=== PATIENT | female | born 1935 | race Caucasian/White ===

== ENCOUNTER 2017-06-10 14:23 | Inpatient (IN) | payer OTHER, BC ==
[2017-06-10 14:42] VITALS: BMI 19.5
--- NOTE | 2017-06-10 15:33 | PDOC ---
Attending Attestation - HPI HPI: The patient is an 81 year old female with significant history of hypertension, COPD, dementia, brought in by EMS after being found on the floor of her home today. Per EMS, the patient's nephew was unable to reach the patient by phone for two days. Today, he checked in on her and found her on the floor of her home. Patient reportedly stating she was "sleeping" and does not recall any fall or injury. Nephew activated EMS. On evaluation, the patient complains of several days of malaise, generalized weakness, productive cough, and white sputum. PCP: Dr. Hammond Documentation prepared by Liss Mendoza, acting as medical reception for Leah Cortez MD. <Liss Mendoza - Last Filed: 06/10/17 16:34> - Resident Resident Name: Lauren Ball - ED Attending Attestation I have performed the following: I have examined & evaluated the patient, The case was reviewed & discussed with the resident, I agree w/resident's findings & plan, Exceptions are as noted - Physicial Exam PE: GENERAL: Awake, alert, in no acute distress. Minimally verbal. Not offering any history. HEAD: No signs of trauma EYES: PERRLA, EOMI, sclera anicteric, conjunctiva clear ENT: Auricles normal inspection, hearing grossly normal, nares patent, oropharynx clear without exudates. Dry mucosa NECK: Normal ROM, supple, no lymphadenopathy, JVD, or masses LUNGS: Breath sounds equal, clear to auscultation bilaterally. No wheezes, and no crackles HEART: Regular rate and rhythm, normal S1 and S2, no murmurs, rubs or gallops ABDOMEN: Soft, nontender, normoactive bowel sounds. No guarding, no rebound. No masses EXTREMITIES: Normal range of motion, no edema. No clubbing or cyanosis. No cords, erythema, or tenderness NEUROLOGICAL: Cranial nerves II through XII grossly intact. Motor and sensation intact. SKIN: Warm, Dry, normal turgor, no rashes or lesions noted. - Medical Decision Making Pt presents after family could not contact her for 2 days, found on the floor. AMS workup was done, and patient was found to have acute renal failure with elevated K. Will treat in ED and admit to hospital for further workup and treatment. <Leah Cortez - Last Filed: 06/12/17 10:44>
--- NOTE | 2017-06-10 15:44 | PDOC ---
History of Present Illness - General Chief Complaint: Altered Mental Status Stated Complaint: AMS Time Seen by Provider: 06/10/17 14:30 History Source: Patient, Family Exam Limitations: Dementia - History of Present Illness Initial Comments: 06/10/17 15:37 81 y/o F with PMH dementia, HTN, COPD, lung nodule, who was BIBEMS after being found at home on the ground this afternoon. As per pt's nephew, he has recently had trouble contacting her over the phone. After approximately two days of missed calls, pt decided to stop by her apartment to find her lying on the floor. She stated that she was "just sleeping," though she was on a rug in the living room, away from her bedroom. It is unclear whether she had a syncopal episode, or had a mechanical fall- was unwitnessed. For this reason, nephew called EMS and she was brought to the hospital. Her vitals were WNL en route, BP 130/80, HR 90. Pt has had decreased PO intake over the last week, as well as generalized pain in her lumbar back. Recently, pt has also "felt unwell," with productive cough, dysuria, and weakness. Nephew and EMS state that her apartment has been very warm. At baseline, pt ambulates with a cane and lives alone in an apartment. Her PMD is Dr. Hammond. PMH: as above PsxH: denies meds: amlodipine, lisinopril allergies: penicillin, pollen FH: mother - Past History - Past Medical History Allergies/Adverse Reactions: Allergies Allergy/AdvReac Type Severity Reaction Status Date / Time Penicillins Allergy Rash Verified 06/10/17 16:48 Pollen Allergy Mild Uncoded 06/10/17 16:48 Home Medications: Ambulatory Orders Glucosa Garcia 2Kcl/Chondroitin Garica [Glucosamine & Chondroitin Cap] 1 each PO DAILY 09/13/13 Potassium Gluconate 500 mg PO DAILY 09/13/13 Ranitidine HCl [Zantac] 150 mg PO BID 09/13/13 Red Yeast Rice 600 mg PO BID 09/13/13 Vitamin E - 400 unit PO DAILY 09/13/13 Pantoprazole Sodium [Protonix] 40 mg PO BID #60 tablet. 09/17/13 Cholecalciferol (Vitamin D3) [Vitamin D3] 1,000 unit PO DAILY tablet 09/06/14 Cranberry Fruit [Cranberry] 450 mg PO BID tablet 09/06/14 Vitamin A 8,000 unit PO DAILY capsule 09/06/14 Anemia: No Asthma: No Cancer: No Cardiac Disorders: No CVA: No COPD: No CHF: No Dementia: No Diabetes: No GI Disorders: No Disorders: No HTN: Yes Hypercholesterolemia: No Liver Disease: No Seizures: No Thyroid Disease: No - Surgical History Abdominal Surgery: No Appendectomy: Yes Cardiac Surgery: No Cholecystectomy: No Lung Surgery: No Neurologic Surgery: No Orthopedic Surgery: No - Suicide/Smoking/Psychosocial Hx Smoking History: Current every day smoker Have you smoked in the past 12 months: Yes Number of Cigarettes Smoked Daily: 20 Information on smoking cessation initiated: No Hx Alcohol Use: No Drug/Substance Use Hx: No Substance Use Type: None Hx Substance Use Treatment: No *Physical Exam - Vital Signs Last Vital Signs Temp Pulse Resp BP Pulse Ox 97.6 F 84 20 118/59 98 06/10/17 14:38 06/10/17 14:38 06/10/17 14:38 06/10/17 14:38 06/10/17 14:38 - Physical Exam General Appearance: Yes: Thin HEENT: positive: EOMI, TEJAS Neck: positive: Supple Respiratory/Chest: positive: Wheezing Cardiovascular: positive: Regular Rhythm, Regular Rate, S1, S2 Vascular Pulses: Dorsalis-Pedis (R): 2+, Doralis-Pedis (L): 2+ Gastrointestinal/Abdominal: positive: Tenderness (TTP suprapubic area) Rectal Exam: positive: heme negative stool Neurologic: positive: second mate II-XII NML intact ED Treatment Course - LABORATORY CBC & Chemistry Diagram: 06/10/17 15:32 06/10/17 15:32 - RADIOLOGY Radiology Studies Ordered: Category Date Time Status CERVICAL SPINE CT W/O CONTR [CT] Stat CT Scan 06/10/17 15:[address] WITHOUT CONTRAST [CT] Stat CT Scan 06/10/17 15:[address] W/O CONTRAST [CT] Stat CT Scan 06/10/17 15:34 Ordered CXRPORT [CHEST X-RAY PORTABLE*] [RAD] Stat Radiology 06/10/17 15:29 Ordered Medical Decision Making - Medical Decision Making 06/10/17 17:03 81 y/o F with PMH dementia, HTN, COPD, lung nodule, who was BIBEMS after being found at home on the ground this afternoon. Pt likely with dehydration d/t decreased PO intake, will hydrate, send labs - cbc, cmp. CK to r/o rhabdo. Will scan head to r/o bleed as pt fall unwitnessed, f/u troponin, ekg. Pt with possible UTI, syncopal episode, or PNA. 06/10/17 17:04 Pt with elevated potassium 5.9 will give nebs/insulin/D50, kayexelate and reassess will hydrate with 1L NS as bump in creatinine ~4.9 EKG: normal sinus, R dev, NE 140ms, QRS 76ms, QTc 434ms, with poss old ant infarct 06/10/17 17:10 Awaiting reports for imaging 06/10/17 20:17 With chronic changes - spinal CT. Head CT (-) will need f/u for CHAVA, AMS pt still lethargic microblog sent 06/10/17 21:15 case d/w Dr. Hernandez, Dr. Maldonado for tele obs 06/10/17 21:16 *DC/Admit/Observation/Transfer Diagnosis at time of Disposition: Altered mental status, Acute kidney injury - Discharge Dispostion Condition at time of disposition: Guarded Admit: Yes - Referrals Referrals: Khang Hammond MD [Primary Care Provider] - - Patient Instructions - Post Discharge Activity
[2017-06-10 16:10] LABS: BASO % 0.2 % (0-2.0); EOS % 0.1 % (0-4.5); HEMOGLOBIN 14.1 GM/dL (10.7-15.3); LYMPH % 12.7 % (8-40); MCH 32.2 pg (25.7-33.7); MCHC 33.6 g/dl (32.0-36.0); MEAN PLT VOLUME 9.1 fl (7.5-11.1); PLATELET COUNT 162 K/MM3 (134-434); RBC 4.38 M/mm3 (3.60-5.2); RDW 15.1 % (11.6-15.6); WHITE BLOOD COUNT 8.3 K/mm3 (4.0-10.0)
[2017-06-10 16:11] LABS: URINE APPEARANCE SLCLOUDY; URINE BILIRUBIN NEGATIVE (NEGATIVE); URINE BLOOD NEGATIVE (NEGATIVE); URINE COLOR YELLOW; URINE GLUCOSE (UA) NEGATIVE (NEGATIVE); URINE KETONE TRACE (NEGATIVE); URINE NITRITE NEGATIVE (NEGATIVE); URINE PROTEIN NEGATIVE (NEGATIVE); URINE UROBILINOGEN NEGATIVE mg/dL (0.2-1.0)
[2017-06-10 16:18] LABS: URINE LEUK ESTERASE 1+ (NEGATIVE)
[2017-06-10 16:23] LABS: EPI CELLS RARE /HPF (FEW); URINE BACTERIA RARE /hpf (NONE SEEN); URINE HYALINE CAST 9 /lpf; URINE MUCUS RARE
[2017-06-10 16:33] LABS: ALK PHOS 71 U/L (45-117); ANION GAP 12 (8-16); BILIRUBIN,TOTAL 0.4 mg/dL (0.2-1.0); CHLORIDE 120 mmol/L (98-107); CO2 15 mmol/L (21-32); CREATININE 4.9 mg/dL (0.55-1.02); GLUCOSE,RANDOM 114 mg/dL (74-106); POTASSIUM 5.9 mmol/L (3.5-5.1); SGOT/AST 8 U/L (15-37); SGPT/ALT 10 U/L (12-78); SODIUM 147 mmol/L (136-145); TOT PROT 7.4 g/dl (6.4-8.2)
[2017-06-10 16:39] LABS: BLOOD UREA NITROGEN 146 mg/dL (7-18)
[2017-06-10] MEDS ORDERED: SODIUM CHLORIDE 1,000 ML IV STA ×2 (16:43→21:15)
[2017-06-10] MEDS ORDERED: INSULIN REGULAR HUMAN 100 UNITS/ML *VIAL SQ ONE (16:43)
[2017-06-10] MEDS ORDERED: SODIUM BICARBONATE 8.4% 50 MEQ/50 ML DISP.SYRIN IVPUSH ONE (16:43)
[2017-06-10] MEDS ORDERED: SODIUM POLYSTYRENE SULFONATE 15 GM/60 ML BOTTLE PO ONE (16:45)
[2017-06-10] MEDS ORDERED: ALBUTEROL SO4 0.083% IH SOL 2.5 MG/3 ML VIAL.NEB. NEB ONE (16:45)
[2017-06-10] MEDS ORDERED: DEXTROSE 50%-WATER - 25 GM/50 ML VIAL IVPUSH ONE (16:49)
[2017-06-10] MEDS ORDERED: SODIUM BICARBONATE 8.4% - 50 ML ONE (17:04)
[2017-06-10] MEDS ORDERED: SODIUM POLYSTYRENE SULFONATE 15 GM/60 ML BOTTLE ONE (17:04)
[2017-06-10] MEDS ORDERED: DEXTROSE 50%-WATER 25 GM/50 ML DISP.SYRIN ONE (17:04)
[2017-06-10] MEDS ORDERED: INSULIN REGULAR HUMAN 100 UNITS/ML *VIAL ONE (17:05)
[2017-06-10] MEDS ORDERED: SODIUM CHLORIDE 1,000 ML IV SCH (21:15)
[2017-06-10] MEDS ORDERED: ALBUTEROL SO4 2.5/IPRATROPIUM 0.5 INH SOL 3 ML VIAL.NEB. NEB PRN (21:19)
--- NOTE | 2017-06-10 21:26 | HP ---
CHIEF COMPLAINT: found on floor PCP:Dr. Hammond HISTORY OF PRESENT ILLNESS: 81 y/o F with PMHx HTN, dementia, COPD, lung nodule, who presented to ED after being found at home on the floor. She was last seen well by her nephew two days prior. He was unable to contact her despite continuous phone calls. After approximately two days of missed calls, pt decided to stop by her apartment to find her lying on the floor. She stated that she was "just sleeping," though she was on a rug in the living room, away from her bedroom. It is unclear whether she had a syncopal episode, or had a mechanical fall- was unwitnessed. For this reason, nephew called EMS and she was brought to the hospital. Her vitals were WNL en route, BP 130/80, HR 90. Pt endorses decreased PO intake over the last week, as well as generalized pain in her lumbar back, which is chronic. Recently, pt has also "felt unwell," with productive cough, dysuria, and weakness. Denies CP,LANZA, SOB, abdominal pain, N/V. ER course was notable for: (1)CT head/neck was negative for acute pathology. (2)BUN 146 Cr. 4.9 (3)K+4.9 , Na 147 Recent Travel: denies PAST MEDICAL HISTORY:dementia, HTN, COPD, lung nodule, PUD PAST SURGICAL HISTORY: Social History: Smoking:current PPD smoker. Alcohol: Denies Drugs: Denies Family History: Allergies Penicillins Allergy (Verified 06/10/17 16:48) Rash Pollen Allergy (Mild, Uncoded 06/10/17 16:48) HOME MEDICATIONS: Home Medications Medication Instructions Recorded Glucosa Garcia 2Kcl/Chondroitin Garcia 1 each PO DAILY 09/13/13 [Glucosamine & Chondroitin Cap] Potassium Gluconate 500 mg PO DAILY 09/13/13 Ranitidine HCl [Zantac] 150 mg PO BID 09/13/13 Red Yeast Rice 600 mg PO BID 09/13/13 Vitamin E - 400 unit PO DAILY 09/13/13 Pantoprazole Sodium [Protonix] 40 mg PO BID #60 tablet. 09/17/13 Cholecalciferol (Vitamin D3) 1,000 unit PO DAILY tablet 09/06/14 [Vitamin D3] Cranberry Fruit [Cranberry] 450 mg PO BID tablet 09/06/14 Vitamin A 8,000 unit PO DAILY capsule 09/06/14 REVIEW OF SYSTEMS CONSTITUTIONAL: Absent: fever, chills, diaphoresis, generalized weakness, malaise, loss of appetite, weight change HEENT: Absent: rhinorrhea, nasal congestion, throat pain, throat swelling, difficulty swallowing, mouth swelling, ear pain, eye pain, visual changes CARDIOVASCULAR: Absent: chest pain, syncope, palpitations, irregular heart rate, lightheadedness , peripheral edema RESPIRATORY: Absent: cough, shortness of breath, dyspnea with exertion, orthopnea, wheezing, stridor, hemoptysis GASTROINTESTINAL: Absent: abdominal pain, abdominal distension, nausea, vomiting, diarrhea, constipation, melena, hematochezia GENITOURINARY: Absent: dysuria, frequency, urgency, hesitancy, hematuria, flank pain, genital pain MUSCULOSKELETAL: Absent: myalgia, arthralgia, joint swelling, back pain, neck pain SKIN: Absent: rash, itching, pallor HEMATOLOGIC/IMMUNOLOGIC: Absent: easy bleeding, easy bruising, lymphadenopathy, frequent infections ENDOCRINE: Absent: unexplained weight gain, unexplained weight loss, heat intolerance, cold intolerance NEUROLOGIC: Absent: headache, focal weakness or paresthesias, dizziness, unsteady gait, seizure, mental status changes, bladder or bowel incontinence PSYCHIATRIC: Absent: anxiety, depression, suicidal or homicidal ideation, hallucinations. PHYSICAL EXAMINATION Vital Signs - 24 hr 06/10/17 06/10/17 14:38 17:24 Temperature 97.6 F 98.0 F Pulse Rate 84 Pulse Rate [ 84 Left Apical] Respiratory 20 16 Rate Blood Pressure 118/59 Blood Pressure 144/71 [Left Arm] O2 Sat by Pulse 98 98 Oximetry (%) GENERAL:awake and alert. pleasantly confused, NAD HEAD: NC/AT EYES: PERRLA, EOMI, sclera anicteric, conjunctiva clear. No lid lag. EARS, NOSE, THROAT: Ears normal, nares patent, oropharynx clear without exudates. dry mucous membranes. Poor dentition NECK: supple, no jvd or mass LUNGS: decreased breath sounds but otherwise clear to auscultation, no wheezing or rales. HEART: RRR, NL S1S2 w/omurmur, rub or gallop. ABDOMEN: Soft, NT/ND, NL BS, no guarding, no rebound, no masses. No hepatomegaly or splenomegaly. MUSCULOSKELETAL: Normal range of motion at all joints. No bony deformities or tenderness. No CVA tenderness. UPPER EXTREMITIES: 2+ pulses, warm, well-perfused. No cyanosis. No clubbing. No peripheral edema. LOWER EXTREMITIES: 2+ pulses, warm, well-perfused. No calf tenderness. No peripheral edema. NEUROLOGICAL: Cranial nerves II-XII intact. Normal speech.gait not observed. AAO x2, 5/5 strength in upper and lower ext. PSYCHIATRIC: Cooperative. Good eye contact. Appropriate mood and affect. SKIN: no obvious signs of trauma, no significant lacerations or bruising. Laboratory Results - last 24 hr 06/10/17 06/10/17 06/10/17 15:32 15:32 15:32 WBC 8.3 RBC 4.38 Hgb 14.1 Hct 42.0 MCV 96.0 MCH 32.2 MCHC 33.6 RDW 15.1 Plt Count 162 D MPV 9.1 D Neutrophils % 79.0 D Lymphocytes % 12.7 D Monocytes % 8.0 Eosinophils % 0.1 D Basophils % 0.2 Sodium 147 H Potassium 5.9 H Chloride 120 H Carbon Dioxide 15 L Anion Gap 12 BUN 146 H* Creatinine 4.9 H Creat Clearance w eGFR 8.48 POC Glucometer Random Glucose 114 H Calcium 9.0 Total Bilirubin 0.4 AST 8 L ALT 10 L Alkaline Phosphatase 71 Creatine Kinase 78 Troponin I Total Protein 7.4 Albumin 4.0 Urine Color Urine Appearance Urine pH Ur Specific Giddings Urine Protein Urine Glucose (UA) Urine Ketones Urine Blood Urine Nitrite Urine Bilirubin Urine Urobilinogen Ur Leukocyte Esterase Urine WBC (Auto) Urine RBC (Auto) Ur Epithelial Cells Urine Bacteria Hyaline Casts Urine Mucus Ur Random Sodium Urine Creatinine 06/10/17 06/10/17 06/10/17 15:37 15:37 17:17 WBC RBC Hgb Hct MCV MCH MCHC RDW Plt Count MPV Neutrophils % Lymphocytes % Monocytes % Eosinophils % Basophils % Sodium Potassium Chloride Carbon Dioxide Anion Gap BUN Creatinine Creat Clearance w eGFR POC Glucometer [phone] Random Glucose Calcium Total Bilirubin AST ALT Alkaline Phosphatase Creatine Kinase 78 Troponin I 0.04 Total Protein Albumin Urine Color Yellow Urine Appearance Slcloudy Urine pH 5.0 Ur Specific [place] 1.017 Urine Protein Negative Urine Glucose (UA) Negative Urine Ketones Trace H Urine Blood Negative Urine Nitrite Negative Urine Bilirubin Negative Urine Urobilinogen Negative Ur Leukocyte Esterase 1+ H Urine WBC (Auto) 3 Urine RBC (Auto) <1 Ur Epithelial Cells Rare Urine Bacteria Rare Hyaline Casts 9 Urine Mucus Rare Ur Random Sodium Urine Creatinine 06/10/17 18:40 WBC RBC Hgb Hct MCV MCH MCHC RDW Plt Count MPV Neutrophils % Lymphocytes % Monocytes % Eosinophils % Basophils % Sodium Potassium Chloride Carbon Dioxide Anion Gap BUN Creatinine Creat Clearance w eGFR POC Glucometer Random Glucose Calcium Total Bilirubin AST ALT Alkaline Phosphatase Creatine Kinase Troponin I Total Protein Albumin Urine Color Urine Appearance Urine pH Ur Specific [place] Urine Protein 72 Urine Glucose (UA) Urine Ketones Urine Blood Urine Nitrite Urine Bilirubin Urine Urobilinogen Ur Leukocyte Esterase Urine WBC (Auto) Urine RBC (Auto) Ur Epithelial Cells Urine Bacteria Hyaline Casts Urine Mucus Ur Random Sodium 22 Urine Creatinine 273.0 ASSESSMENT/PLAN: 81 y/o F with PMH dementia, HTN, COPD, lung nodule placed on observation for CHAVA , hyperkalemia and hypernatremia after being found at home on the floor. Problem List - Problem (1) Acute kidney injury Assessment/Plan: Most likely pre-renal from decreased PO intake. * Given 2L NS in ED * Will continue IVF with 1/2NS @ 50ml/hr * strict I/O's * repeat labs in AM (2) Hyperkalemia Assessment/Plan: * Placed on Telemetry. * Repeat EKG * Given albuterol, Kayexelate, Insulin and glucose in ED * Will repeat BMP in AM * placed on telemetry. (3) Hypernatremia Assessment/Plan: free water def. 1L * continue IVF * repeat sodium in AM (4) Altered mental status Assessment/Plan: CT imaging of head and neck negative for acute pathology. * Neuro checks Q4H * WIll check B12, TSH, and (5) HTN (hypertension) Assessment/Plan: BP on the low side upon presentation. * Will hold BP meds for now * hold lisinopril for CHAVA. (6) COPD (chronic obstructive pulmonary disease) Assessment/Plan: * Duonebs PRN (7) Dementia (8) DVT prophylaxis Assessment/Plan: * Heparin SQ TID 5000 units Visit type - Emergency Visit Emergency Visit: Yes ED Registration Date: 06/11/17 Care time: The patient presented to the Emergency Department on the above date and was hospitalized for further evaluation of their emergent condition. - New Patient This patient is new to me today: Yes Date on this admission: 06/13/17 - Critical Care Critical Care patient: No Hospitalist Screening - Colonoscopy Questionnaire Colonoscopy Questionnaire: Colonoscopy Questionnaire - Patient: 50 - 75 years old and never had a screening colonoscopy: No History of colon or rectal polyps, or CA: No History of IBD, Crohn's disease or UC: No History of abdominal radiation therapy as a child: No - Relative: 1 with colon or rectal CA, or polyps at age 60 or younger: No Colon or rectal CA diagnosed at age 45 or younger: No Multiple relatives with colon or rectal CA: No - Outcome: Screening Result: Negative Screen
[2017-06-10] MEDS ORDERED: PANTOPRAZOLE 40 MG TABLET (FP) ONE (21:50)
[2017-06-10] MEDS ORDERED: HEPARIN NA (PORCINE) 5,000 UNITS/ML 1ML VIAL ONE (21:51)
[2017-06-10] MEDS: HEPARIN NA (PORCINE) 5,000 UNITS/ML 1ML VIAL SQ SCH (22:14)
[2017-06-10] MEDS: PANTOPRAZOLE 40 MG TABLET (FP) PO SCH (22:14)
[2017-06-10 22:48] LABS: ANION GAP 12 (8-16); CALCIUM 8.4 mg/dL (8.5-10.1); CHLORIDE 124 mmol/L (98-107); CO2 18 mmol/L (21-32); CREATININE 3.9 mg/dL (0.55-1.02); GLUCOSE,RANDOM 114 mg/dL (74-106); POTASSIUM 4.2 mmol/L (3.5-5.1); SODIUM 154 mmol/L (136-145)
[2017-06-10 22:55] LABS: BLOOD UREA NITROGEN 129 mg/dL (7-18)
--- NOTE | 2017-06-10 23:37 | PN ---
Teaching Attending Note Name of Resident: Tree Maldonado ATTENDING PHYSICIAN STATEMENT I saw and evaluated the patient. Chart, data, imaging reviewed. I reviewed the resident's note and discussed the case with the resident. I agree with the resident's findings and plan as documented. SUBJECTIVE: 81 y/o F with PMHx HTN, dementia, COPD, lung nodule, presented to hospital after being found home on floor by nephew, uncertain amount of time that patient spent on floor. Patient found to be confused, was brought in to ER. No evidence of trauma to head. She is believed to have poor PO intake. Lives by herself. She has baseline dementia and is not a reliable historian. OBJECTIVE: Last Vital Signs Temp Pulse Resp BP Pulse Ox 99 F 80 20 133/70 100 06/10/17 21:21 06/10/17 21:21 06/10/17 21:21 06/10/17 21:21 06/10/17 21:21 general -nad, aaox2 heent -at, nc, dry oral mucosa neck -supple, no masses cv s1+s2+ rrr, no murmurs appreciated chest cta bl abdomen soft, nt, BS+ ext- no pedal edema appreciated Dry skin Abnormal Lab Results 06/10/17 06/10/17 06/10/17 15:32 15:37 22:00 Sodium 147 H Potassium 5.9 H Chloride 120 H Carbon Dioxide 15 L BUN 146 H* Creatinine 4.9 H Random Glucose 114 H Calcium AST 8 L ALT 10 L Troponin I 0.06 H Urine Ketones Trace H Ur Leukocyte Esterase 1+ H 06/10/17 22:00 Sodium 154 H Potassium Chloride 124 H Carbon Dioxide 18 L BUN 129 H* Creatinine 3.9 H Random Glucose 114 H Calcium 8.4 L AST ALT Troponin I Urine Ketones Ur Leukocyte Esterase CT of head- no acute bleed or infarct C spine CT -no acute fracture EKG -normal sinus rhythm ASSESSMENT AND PLAN: #81yo frail, elderly woman s/p fall at home with head CT and spine negative for traumatic events. No evidence of trauma to other part of body. EKG showing NSR. CHAVA on initial labs which improved on repeat labs. Repeat labs showing hypernatremia of 154 and mildy elevated troponin. Initial hyperkalemia has improved. #Fall -likely mechanical, no signs of trauma -fall precautions -bed rest -PT evaluation -social service intervention for snf placement if family agrees #CHAVA- prerenal as FeNa <2 -IV fluid hydration -avoid nephrotoxic medication -sauceda catheter -i/o -daily weights -avoid nephrotoxic meds - renal U/S -trend BMP #Elevated troponin- doubt ACS, normal EKG, may be false+ from CHAVA -trend troponin #Hypernatremia- likely 2/2 dehydration -D5W at 70cc hr -monitor bmp q6hrs not to overcorrect Na by more than 10 mEq in 24hrs #DVT ppx -heparin sc
[2017-06-11] MEDS ORDERED: DEXTROSE 5%-WATER - 1,000 ML IV SCH (02:45)
[2017-06-11] MEDS: HEPARIN NA (PORCINE) 5,000 UNITS/ML 1ML VIAL SQ SCH ×3 (05:49→21:26)
[2017-06-11 06:26] LABS: BASO % 0.2 % (0-2.0); EOS % 0.3 % (0-4.5); HEMATOCRIT 36.7 % (32.4-45.2); HEMOGLOBIN 12.5 GM/dL (10.7-15.3); LYMPH % 23.5 % (8-40); MCH 32.2 pg (25.7-33.7); MCHC 34.1 g/dl (32.0-36.0); MEAN CELL VOLUME 94.6 fl (80-96); MEAN PLT VOLUME 9.4 fl (7.5-11.1); MONO % 10.2 % (3.8-10.2); NEUT % 65.8 % (42.8-82.8); PLATELET COUNT 154 K/MM3 (134-434); RBC 3.88 M/mm3 (3.60-5.2); RDW 14.8 % (11.6-15.6); WHITE BLOOD COUNT 7.3 K/mm3 (4.0-10.0)
[2017-06-11 06:48] LABS: ALBUMIN 3.2 g/dl (3.4-5.0); ANION GAP 11 (8-16); BILIRUBIN,TOTAL 0.4 mg/dL (0.2-1.0); CALCIUM 8.1 mg/dL (8.5-10.1); CHLORIDE 124 mmol/L (98-107); CO2 18 mmol/L (21-32); GLUCOSE,RANDOM 96 mg/dL (74-106); MAGNESIUM 2.4 mg/dL (1.8-2.4); PHOSPHOROUS 5.4 mg/dL (2.5-4.9); POTASSIUM 3.8 mmol/L (3.5-5.1); SGOT/AST 11 U/L (15-37); SGPT/ALT 9 U/L (12-78); SODIUM 153 mmol/L (136-145); TOT PROT 5.9 g/dl (6.4-8.2)
[2017-06-11 06:50] LABS: ALK PHOS 56 U/L (45-117)
[2017-06-11 06:55] LABS: BLOOD UREA NITROGEN 121 mg/dL (7-18)
[2017-06-11] MEDS: PANTOPRAZOLE 40 MG TABLET (FP) PO SCH ×2 (10:25→21:25)
[2017-06-11] MEDS: CHOLECALCIFEROL (VITAMIN D3) 1,000 UNIT TABLET (FP) PO SCH (10:25)
--- NOTE | 2017-06-11 14:40 | PN ---
Progress Note (short form) - Note Progress Note: c/o R arm pain. states her legs went out yesterday causing her to fall. denies CP, SOB, fever, chills, n/V/C/D Current Medications Generic Name Dose Route Start Last Admin Trade Name Susan PRN Reason Stop Dose Admin Albuterol/Ipratropium 1 amp 06/10/17 21:19 Duoneb - NEB Q6H PRN SHORTNESS OF BREATH Cholecalciferol 1,000 unit 06/11/17 10:00 06/11/17 10:25 Vitamin D3 - PO 1,000 unit DAILY TING Administration Heparin Sodium (Porcine) 5,000 unit 06/10/17 22:00 06/11/17 05:49 Heparin - SQ 5,000 unit TID TING Administration Dextrose 1,000 mls @ 75 mls/hr 06/11/17 02:45 06/11/17 10:25 D5w - IV 75 mls/hr ASDIR TING Administration Pantoprazole Sodium 40 mg 06/10/17 22:00 06/11/17 10:25 Protonix - PO 40 mg BID TING Administration Last Vital Signs Temp Pulse Resp BP Pulse Ox 98.2 F 71 16 115/57 100 06/11/17 09:00 06/11/17 09:00 06/11/17 13:00 06/11/17 09:00 06/11/17 13:00 General NAD, A &O x2 (self and location), frail elderly thin female HEENT dry oral mucosa CV S1 S2 RRR no murmur/rub/gallop Lungs CTA anteriorly ABdomen soft NT/ND Extremities bruising at various stages of healing on B/L UE, tender B/L LE. not limited to calf but entire leg +skin tenting CBCD WBC 7.3 K/mm3 (4.0-10.0) 06/11/17 05:05 RBC 3.88 M/mm3 (3.60-5.2) 06/11/17 05:05 Hgb 12.5 GM/dL (10.7-15.3) D 06/11/17 05:05 Hct 36.7 % (32.4-45.2) 06/11/17 05:05 MCV 94.6 fl (80-96) 06/11/17 05:05 MCHC 34.1 g/dl (32.0-36.0) 06/11/17 05:05 RDW 14.8 % (11.6-15.6) 06/11/17 05:05 Plt Count 154 K/MM3 (134-434) 06/11/17 05:05 MPV 9.4 fl (7.5-11.1) 06/11/17 05:05 CMP Sodium 153 mmol/L (136-145) H 06/11/17 05:05 Potassium 3.8 mmol/L (3.5-5.1) 06/11/17 05:05 Chloride 124 mmol/L (98-107) H 06/11/17 05:05 Carbon Dioxide 18 mmol/L (21-32) L 06/11/17 05:05 Anion Gap 11 (8-16) 06/11/17 05:05 BUN 121 mg/dL (7-18) H* 06/11/17 05:05 Creatinine 3.0 mg/dL (0.55-1.02) H 06/11/17 05:05 Creat Clearance w eGFR 14.94 (>60) 06/11/17 05:05 Calcium 8.1 mg/dL (8.5-10.1) L 06/11/17 05:05 Total Bilirubin 0.4 mg/dL (0.2-1.0) 06/11/17 05:05 AST 11 U/L (15-37) L 06/11/17 05:05 ALT 9 U/L (12-78) L 06/11/17 05:05 Alkaline Phosphatase 56 U/L (45-117) 06/11/17 05:05 Total Protein 5.9 g/dl (6.4-8.2) L 06/11/17 05:05 Albumin 3.2 g/dl (3.4-5.0) L 06/11/17 05:05 A/P 81yo F with PMH HTN, demenita, COPD, lung nodule and CVA presenting to the Er after being found on the floor for undetermined length of time 1. Acute toxic/metabolic encephalopathy- due to hypernatrema and uremia. unknown baseline. appears more alert today then reported in the notes. treat underlying problems. no signs of infection. UA and CXR clear 2. s/p mechanical fall- c/o R shoulder pain. will check XR. imaging studies negative for acute fracture. pain control. PT assessment 3. Hypernatremia- 2L Free water deficit . clinically pt appears very dry. will switch to NS as is more hypotonic then currently. trend Na level. check serum osm, urine osm. 4. CHAVA- liekly some chronic component based on u/s showing medical disease. FeNa <1 and likely pre renal. on ivf. improving. hold acei. avoid nephrotoxic agents. will need to obtain baseline Cr. sauceda inplace 5. Tropinemia- likely due to CHAVA. no complaints of CP. troponin peak at 0.06. unclear previous cardiac workup. will need to speak with HCP for collateral. check echo. if no WMA would not further pursue cardiac workup. cardiac monitoring 6. Hyperkalemia- due to CHAVA. s/p kayexylate. now resolved 7. HTN- controlled off medications. cont to hold acei in setting of chava 8. COPD- no signs of acute exacerbtion. nebs prn 9. Malnourished- BMI 17. poor po intake per RN. encurage ensure. encourage po intake 10. Lung nodule 11. 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 not on prophylaxis medications. possible due to frequent falls. will need to obtain collateral form nephew 12. DVT ppx- Hep sq 13. PT assessment. will likely benefit from [facility] placement Visit type - Emergency Visit Emergency Visit: Yes ED Registration Date: 06/10/17 Care time: The patient presented to the Emergency Department on the above date and was hospitalized for further evaluation of their emergent condition. - New Patient This patient is new to me today: Yes Date on this admission: 06/11/17 - Critical Care Critical Care patient: No - Discharge Referral Referred to [facility] Med [facility].C[facility] No
[2017-06-11] MEDS ORDERED: SODIUM CHLORIDE 1,000 ML IV SCH (15:15)
[2017-06-11 22:09] LABS: ANION GAP 11 (8-16); BLOOD UREA NITROGEN 97 mg/dL (7-18); CALCIUM 7.6 mg/dL (8.5-10.1); CHLORIDE 119 mmol/L (98-107); CO2 19 mmol/L (21-32); GLUCOSE,RANDOM 123 mg/dL (74-106); POTASSIUM 3.3 mmol/L (3.5-5.1); SODIUM 149 mmol/L (136-145)
[2017-06-11 22:54] LABS: OSMOLALITY,SERUM 333 mosm/kg (278-305)
[2017-06-12] MEDS: HEPARIN NA (PORCINE) 5,000 UNITS/ML 1ML VIAL SQ SCH ×3 (05:45→21:33)
[2017-06-12 07:23] LABS: ANION GAP 13 (8-16); BLOOD UREA NITROGEN 80 mg/dL (7-18); CALCIUM 8.1 mg/dL (8.5-10.1); CHLORIDE 118 mmol/L (98-107); CO2 20 mmol/L (21-32); GLUCOSE,RANDOM 93 mg/dL (74-106); SODIUM 151 mmol/L (136-145)
[2017-06-12 07:25] LABS: CREATININE 1.6 mg/dL (0.55-1.02)
[2017-06-12 07:48] LABS: BASO % 0.3 % (0-2.0); EOS % 1.3 % (0-4.5); HEMATOCRIT 38.1 % (32.4-45.2); HEMOGLOBIN 12.9 GM/dL (10.7-15.3); LYMPH % 25.5 % (8-40); MCH 32.1 pg (25.7-33.7); MCHC 33.8 g/dl (32.0-36.0); MEAN PLT VOLUME 9.6 fl (7.5-11.1); MONO % 8.3 % (3.8-10.2); NEUT % 64.6 % (42.8-82.8); PLATELET COUNT 150 K/MM3 (134-434); RDW 14.5 % (11.6-15.6); WHITE BLOOD COUNT 6.9 K/mm3 (4.0-10.0)
[2017-06-12 07:49] LABS: POTASSIUM 2.9 mmol/L (3.5-5.1)
--- NOTE | 2017-06-12 08:48 | PN ---
Teaching Attending Note Name of Resident: Frank Denis ATTENDING PHYSICIAN STATEMENT I saw and evaluated the patient. I reviewed the resident's note and discussed the case with the resident. I agree with the resident's findings and plan as documented. SUBJECTIVE:asymptomatic. states she has no appetite. denies Cp, SOB, fever, chills, N/V/C/D OBJECTIVE: Last Vital Signs Temp Pulse Resp BP Pulse Ox 98.5 F 71 20 130/60 99 06/12/17 05:59 06/12/17 05:59 06/12/17 05:59 06/12/17 05:59 06/12/17 05:59 General NAD A&O x1 (self only) HEENT moist oral mucosa CV S1 S2 RRR no murmur/rub/gallop Lungs CTA B/L no wheezing/rales/rhonchi Extremities no skin tenting ASSESSMENT AND PLAN: 81yo F with PMH HTN, demenita, COPD, lung nodule and CVA presenting to the Er after being found on the floor for undetermined length of time 1. Acute toxic/metabolic encephalopathy- due to hypernatrema and uremia. slightly more confused today (informed she is unsure if she is in hospital or hotel). no sign of infection. 2. s/p mechanical fall- no longer having R shoulder pain. XR negative for fracture. PT only walked 15ft. will need [facility]. 3. Hypernatremia- improved and now trending up. no longer appears dehydrated. switch IVF to 1/2NS. repeat Na level 4. CHAVA- liekly some chronic component based on u/s showing medical disease. FeNa <1 and likely pre renal. cont to improve. d/c sauceda. avoid nephrotoxic agents. 5. Tropinemia- likely due to CHAVA. no complaints of CP. troponin peak at 0.06. unclear previous cardiac workup. will need to speak with HCP for collateral. check echo. if no WMA would not further pursue cardiac workup. cardiac monitoring 6. Hyperkalemia- due to CHAVA. s/p kayexylate. now low potasssium. will place 20meq in IVF. repeat today 7. HTN- controlled off medications. cont to hold acei in setting of chava 8. COPD- no signs of acute exacerbtion. nebs prn 9. Malnourished- BMI 17. poor po intake per RN. encourage ensure. encourage po intake 10. Lung nodule 11. 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 not on prophylaxis medications. possible due to frequent falls. will need to obtain collateral form nephew 12. DVT ppx- Hep sq 13. Will need [facility] on discharge when medically stable. can d/c cardiac monitoring if repeat K is improved.
[2017-06-12] MEDS: PANTOPRAZOLE 40 MG TABLET (FP) PO SCH ×2 (09:01→21:34)
[2017-06-12] MEDS: CHOLECALCIFEROL (VITAMIN D3) 1,000 UNIT TABLET (FP) PO SCH (09:01)
[2017-06-12] MEDS ORDERED: SODIUM CHLORIDE 0.45%/POT 20 MEQ/1,000 ML INFUS.BAG IV SCH (09:15)
[2017-06-12] MEDS ORDERED: POTASSIUM CHLORIDE TABS 20 MEQ TABLET.ER (FP) PO ONE ×2 (09:15→13:15)
--- NOTE | 2017-06-12 11:42 | PN ---
Physical Exam: SUBJECTIVE: Patient seen and examined No acute events overnight. Pt endorses her usual chronic back pain, but denies headache, chest pain, SOB, abdominal pain, and n/v/d/c. OBJECTIVE: Vital Signs Period Temp Pulse Resp BP Sys/Grande Pulse Ox Last 24 Hr 97.4 F-98.5 F 65-80 16-20 109-143/49-67 99-100 GENERAL: elderly female, lying in bed, in NAD, AAOx1 (name) HEENT: NC, AT NECK: Trachea midline, full range of motion, supple. LUNGS: Breath sounds equal, clear to auscultation bilaterally, no wheezes, no crackles, no accessory muscle use. HEART: Regular rate and rhythm, S1, S2 without murmur, rub or gallop. ABDOMEN: Soft, nontender, nondistended, normoactive bowel sounds, no guarding, no rebound, no hepatosplenomegaly, no masses. EXTREMITIES: 2+ pulses, warm, well-perfused, no edema. NEUROLOGICAL: Cranial nerves II through XII grossly intact. Normal speech, gait not observed. Laboratory Results - last 24 hr 06/11/17 06/11/17 06/12/17 15:15 21:20 05:05 WBC 6.9 RBC 4.00 Hgb 12.9 Hct 38.1 MCV 95.0 MCH 32.1 MCHC 33.8 RDW 14.5 Plt Count 150 MPV 9.6 Neutrophils % 64.6 Lymphocytes % 25.5 Monocytes % 8.3 Eosinophils % 1.3 D Basophils % 0.3 Sodium 149 H Potassium 3.3 L Chloride 119 H Carbon Dioxide 19 L Anion Gap 11 BUN 97 H Creatinine 2.0 H Random Glucose 123 H Serum Osmolality 333 H Calcium 7.6 L Urine Osmolality 394 06/12/17 05:05 WBC RBC Hgb Hct MCV MCH MCHC RDW Plt Count MPV Neutrophils % Lymphocytes % Monocytes % Eosinophils % Basophils % Sodium 151 H Potassium 2.9 L* Chloride 118 H Carbon Dioxide 20 L Anion Gap 13 BUN 80 H Creatinine 1.6 H Random Glucose 93 Serum Osmolality Calcium 8.1 L Urine Osmolality Active Medications Generic Name Dose Route Start Last Admin Trade Name Freq PRN Reason Stop Dose Admin Albuterol/Ipratropium 1 amp 06/10/17 21:19 Duoneb - NEB Q6H PRN SHORTNESS OF BREATH Cholecalciferol 1,000 unit 06/11/17 10:00 06/12/17 09:01 Vitamin D3 - PO 1,000 unit DAILY TING Administration Heparin Sodium (Porcine) 5,000 unit 06/10/17 22:00 06/12/17 05:45 Heparin - SQ 5,000 unit TID TING Administration Potassium Chloride 10 meq/ 105 mls @ 100 mls/hr 06/12/17 09:00 Sodium Chloride IVPB 06/12/17 11:59 Q60M TING Potassium Chloride/Sodium Chloride 20 meq in 1,000 mls @ 100 mls/hr 06/12/17 09:15 1/2ns+20meq Kcl IV ASDIR TING Pantoprazole Sodium 40 mg 06/10/17 22:00 06/12/17 09:01 Protonix - PO 40 mg BID TING Administration Potassium Chloride 40 meq 06/12/17 13:15 K-Dur - PO 06/12/17 13:16 ONCE ONE ASSESSMENT/PLAN: 81F w/ hx of HTN, dementia, COPD, lung nodule, and CVA who presented after being found on floor at home for uncertain length of time, found to have CHAVA and electrolyte abnormalities. #s/p mechanical fall -likely 2/2 acute metabolic encephalopathy 2/2 electrolyte abnormalities -imaging negative for any acute fractures -will likely need [facility] #Hypernatremia -Na of 151, up from 149 -changed IVF to 1/2NS -repeat Na level this afternoon -likely 2/2 decreased po intake chronically #CHAVA- resolving -creatinine of 1.6 today, down from 4.9 on admission -u/s showing medical-renal disease likely chronic in addition to pre-renal from decreased po intake -d/c sauceda -avoid nephrotoxic agents. #Troponinemia -likely 2/2 kidney injury -no complaints of chest pain and troponin peak of 0.06 -speak to PCP for collateral about cardiac hx -f/u echo #Hyperkalemia -2/2 to CHAVA, s/p kayexylate -now K of 2.9 today, repleting -f/u repeat BMP this afternoon #HTN -controlled off medications. BPs of 110-130/50-60 -cont to hold acei #COPD -controlled -nebs prn #Malnourished -BMI 17 -poor po intake per RN and pt describes poor appetite # Lung nodule # CVA -CT head shows evidence of old infarcts that pt is unaware of -pt not on ASA, possibly due to frequent falls -spoke to nephew who does not know if pt has ever had a stroke. will call PCP jason #FEN/ppx -1/2NS @ 100 -replete K, correct Na -sodium controlled diet with ensure -protonix -heparin #Dispo -Will need [facility] on discharge when medically stable Case discussed with attending, Dr. Reina. -Frank Denis MD PGY1 Visit type - Emergency Visit Emergency Visit: Yes ED Registration Date: 06/11/17 Care time: The patient presented to the Emergency Department on the above date and was hospitalized for further evaluation of their emergent condition. - New Patient This patient is new to me today: Yes Date on this admission: 06/12/17 - Critical Care Critical Care patient: No
[2017-06-12] MEDS: POTASSIUM CHLORIDE 10 MEQ in SODIUM CHLORIDE 100 ML IVPB SCH ×5 (11:52→14:36)
[2017-06-12 12:39] LABS: ANION GAP 9 (8-16); BLOOD UREA NITROGEN 76 mg/dL (7-18); CALCIUM 8.3 mg/dL (8.5-10.1); CHLORIDE 120 mmol/L (98-107); CO2 22 mmol/L (21-32); CREATININE 1.5 mg/dL (0.55-1.02); GLUCOSE,RANDOM 110 mg/dL (74-106); POTASSIUM 3.5 mmol/L (3.5-5.1); SODIUM 151 mmol/L (136-145)
[2017-06-12] MEDS ORDERED: SODIUM CHLORIDE 0.45% 1,000 ML IV SCH ×2 (14:45→19:54)
[2017-06-12 19:16] LABS: ANION GAP 9 (8-16); BLOOD UREA NITROGEN 70 mg/dL (7-18); CALCIUM 7.9 mg/dL (8.5-10.1); CHLORIDE 120 mmol/L (98-107); CO2 19 mmol/L (21-32); CREATININE 1.6 mg/dL (0.55-1.02); GLUCOSE,RANDOM 170 mg/dL (74-106); SODIUM 148 mmol/L (136-145)
[2017-06-12] MEDS ORDERED: ALBUTEROL SO4 2.5/IPRATROPIUM 0.5 INH SOL 3 ML VIAL.NEB. NEB PRN (19:54)
[2017-06-13] MEDS: HEPARIN NA (PORCINE) 5,000 UNITS/ML 1ML VIAL SQ SCH ×3 (06:22→21:37)
[2017-06-13 09:17] LABS: ANION GAP 9 (8-16); BLOOD UREA NITROGEN 49 mg/dL (7-18); CALCIUM 8.1 mg/dL (8.5-10.1); CHLORIDE 121 mmol/L (98-107); CO2 17 mmol/L (21-32); CREATININE 1.2 mg/dL (0.55-1.02); GLUCOSE,RANDOM 84 mg/dL (74-106); POTASSIUM 4.7 mmol/L (3.5-5.1); SODIUM 147 mmol/L (136-145)
[2017-06-13] MEDS: CHOLECALCIFEROL (VITAMIN D3) 1,000 UNIT TABLET (FP) PO SCH (11:32)
[2017-06-13] MEDS: PANTOPRAZOLE 40 MG TABLET (FP) PO SCH ×2 (11:32→21:37)
--- NOTE | 2017-06-13 13:02 | PN ---
Teaching Attending Note Name of Resident: Chata Ibrahim ATTENDING PHYSICIAN STATEMENT I saw and evaluated the patient. I reviewed the resident's note and discussed the case with the resident. I agree with the resident's findings and plan as documented. SUBJECTIVE:asymptomatic. denies Cp, SOB, fever, chills, N/V/C?D OBJECTIVE: Last Vital Signs Temp Pulse Resp BP Pulse Ox 97.6 F 69 20 132/62 98 06/13/17 06:46 06/13/17 06:46 06/13/17 06:46 06/13/17 06:46 06/12/17 21:00 General NAD A&O x2 (self and location) HEENT moist oral mucosa CV S1 S2 RRR no murmur/rub/gallop Lungs CTA B/L no wheezing/rales/rhonchi Extremities no skin tenting ASSESSMENT AND PLAN: 81yo F with PMH HTN, demenita, COPD, lung nodule and CVA presenting to the Er after being found on the floor for undetermined length of time 1. Acute toxic/metabolic encephalopathy- due to hypernatrema and uremia. appears to be at baseline. s 2. s/p mechanical fall- no longer having R shoulder pain. XR negative for fracture. PT only walked 15ft. will need [facility]. 3. Hypernatremia- improved. slowly trending down. cont IVF. trend Na BID. 4. JUSTICE- liekly some chronic component based on u/s showing medical disease. FeNa <1 and likely pre renal. cont to improve. good UOP after sauceda removal. avoid nephrotoxic agents. 5. Tropinemia- likely due to JUSTICE. no complaints of CP. troponin peak at 0.06. unclear previous cardiac workup. will need to speak with HCP for collateral. check echo. if no WMA would not further pursue cardiac workup. cardiac monitoring 6. Hyperkalemia- due to JUSTICE. s/p kayexylate.resolved 7. HTN- controlled off medications. cont to hold acei in setting of justice 8. COPD- no signs of acute exacerbtion. nebs prn 9. Malnourished- BMI 17. poor po intake per RN. encourage ensure. encourage po intake 10. Lung nodule 11. 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 not on prophylaxis medications. possible due to frequent falls. will need to obtain collateral form nephew 12. DVT ppx- Hep sq 13. will need [facility] placement when medically optimized. Anticipate discharge tomorrow
[2017-06-13 17:17] LABS: ANION GAP 7 (8-16); BLOOD UREA NITROGEN 46 mg/dL (7-18); CHLORIDE 119 mmol/L (98-107); CO2 22 mmol/L (21-32); CREATININE 1.2 mg/dL (0.55-1.02); GLUCOSE,RANDOM 85 mg/dL (74-106); POTASSIUM 4.7 mmol/L (3.5-5.1); SODIUM 148 mmol/L (136-145)
[2017-06-13] MEDS ORDERED: DEXTROSE 5%-WATER - 1,000 ML IV SCH (17:30)
--- NOTE | 2017-06-13 18:13 | PN ---
Physical Exam: SUBJECTIVE: Patient seen and examined. Offers no complaints. Denies fever, chills, CP, abdominal pain. OBJECTIVE: Vital Signs Period Temp Pulse Resp BP Sys/Grande Pulse Ox Last 24 Hr 97.6 F-98.4 F 65-77 16-20 118-132/55-66 97-98 GENERAL: thin, elderly female, aaox2 (knows name, at [facility], does not know year) HEENT: EOMI, sclera anicteric, conjunctiva clear, MMM NECK: supple, no cervical LAD, no JVD LUNGS: CTAB HEART: rrr, normal s1/s2, no m/r/g ABDOMEN: soft, ntnd, normoactive bowel sounds LOWER EXTREMITIES: 2+ DP pulses, wwp, no edema NEUROLOGICAL: Cranial nerves II through XII grossly intact. Normal speech, gait not observed CBC, BMP 06/13/17 16:00 Active Medications Albuterol/Ipratropium (Duoneb -) 1 amp NEB Q6H PRN PRN Reason: SHORTNESS OF BREATH Cholecalciferol (Vitamin D3 -) 1,000 unit PO DAILY [facility] Last Admin: 06/13/17 11:32 Dose: 1,000 unit Heparin Sodium (Porcine) (Heparin -) 5,000 unit SQ TID [facility] Last Admin: 06/13/17 21:37 Dose: 5,000 unit Dextrose (D5w -) 1,000 mls @ 83 mls/hr IV ASDIR [facility] Last Admin: 06/13/17 20:07 Dose: 83 mls/hr Pantoprazole Sodium (Protonix -) 40 mg PO BID [facility] Last Admin: 06/13/17 21:37 Dose: 40 mg ASSESSMENT/PLAN: 81yo M with PMH of HTN, dementia, COPD, lung nodule, and CVA who BIBEMS after being discovered on floor by nephew for unclear length of time, and found to have electrolyte abnormalities and CHAVA. #s/p mechanical fall -likely 2/2 acute metabolic encephalopathy 2/2 electrolyte abnormalities -imaging negative for acute fractures -d/c to [facility], d/w nephew #Hypernatremia, Na 147 in AM, 148 in PM today -switch 1/2NS to D5W -Trend Na BID, when normalized switch IVF to PO fluids #CHAVA, resolving, Cr 1.2 from 4.9 on admission -Monitor UOP -avoid nephrotoxic agents #Troponinemia, likely 2/2 to CHAVA, not c/w ACS - trending flat, no EKG ischemic changes, no CP -ECHO completed, interpretation pending #Hyperkalemia likely 2/2 CHAVA, s/p kayekylate, resolved #HTN -controlled off medications, hold home meds for now #COPD, well controlled - Duo nebs prn # h/o CVA -Head CT revealed e/o old infarcts -Pt not on ASA, possible due to falls, will obtain collateral from PCP #Lung nodules seen on CT #FEN: D5W@83 / lytes wnl / Na controlled, Ensure #PPX: -Heparin SQ TID -protonix 40mg daily #Dispo - d/c to [facility] when medically stable, anticipate d/c in next 24-48hours d/w Dr. Nuno Ibrahim MD PGY1 - Internal Medicine Visit type - Emergency Visit Emergency Visit: No - New Patient This patient is new to me today: Yes Date on this admission: 06/13/17 - Critical Care Critical Care patient: No
[2017-06-14] MEDS: HEPARIN NA (PORCINE) 5,000 UNITS/ML 1ML VIAL SQ SCH ×2 (05:32→14:12)
[2017-06-14 08:17] LABS: ANION GAP 10 (8-16); BLOOD UREA NITROGEN 34 mg/dL (7-18); CALCIUM 7.9 mg/dL (8.5-10.1); CHLORIDE 113 mmol/L (98-107); CO2 22 mmol/L (21-32); GLUCOSE,RANDOM 78 mg/dL (74-106); POTASSIUM 4.3 mmol/L (3.5-5.1); SODIUM 145 mmol/L (136-145)
[2017-06-14] MEDS: PANTOPRAZOLE 40 MG TABLET (FP) PO SCH (09:45)
[2017-06-14] MEDS: CHOLECALCIFEROL (VITAMIN D3) 1,000 UNIT TABLET (FP) PO SCH (09:46)
--- NOTE | 2017-06-14 12:50 | EKG ---
Test Reason : Blood Pressure : / mmHG Vent. Rate : 081 BPM Atrial Rate : 081 BPM P-R Int : 140 ms QRS Dur : 076 ms QT Int : 374 ms P-R-T Axes : 078 091 063 degrees QTc Int : 434 ms POOR DATA QUALITY, INTERPRETATION MAY BE ADVERSELY AFFECTED NORMAL SINUS RHYTHM RIGHTWARD AXIS POSSIBLE ANTERIOR INFARCT , AGE UNDETERMINED ABNORMAL ECG NO PREVIOUS ECGS AVAILABLE Confirmed by MD PALMIRA, HOLDEN ([id number]) on 06/14/2017 12:49:36 PM Referred By: Confirmed By:HOLDEN CHAVIS MD
--- NOTE | 2017-06-14 13:59 | DS ---
Physical Exam: SUBJECTIVE: Patient seen and examined. Sitting in chair in hallway. Pleasant and conversant. Offers no complaints. Appetite improved, finished breakfast. Denies fever, chills, abdominal pain, CP, LANZA. OBJECTIVE: Vital Signs Period Temp Pulse Resp BP Sys/Grande Pulse Ox Last 24 Hr 98.2 F-98.4 F 65-68 16-20 118-132/55-66 99 PHYSICAL EXAM GENERAL: thin, elderly female, aaox2 (knows name, at [facility], does not know year) HEENT: EOMI, sclera anicteric, conjunctiva clear, MMM NECK: supple, no cervical LAD, no JVD LUNGS: CTAB HEART: rrr, normal s1/s2, no m/r/g ABDOMEN: soft, ntnd, normoactive bowel sounds LOWER EXTREMITIES: 2+ DP pulses, wwp, no edema NEUROLOGICAL: Cranial nerves II through XII grossly intact. Normal speech, gait not observed CBC, BMP 06/14/17 06:30 Active Medications Albuterol/Ipratropium (Duoneb -) 1 amp NEB Q6H PRN PRN Reason: SHORTNESS OF BREATH Cholecalciferol (Vitamin D3 -) 1,000 unit PO DAILY [facility] Last Admin: 06/14/17 09:46 Dose: 1,000 unit Heparin Sodium (Porcine) (Heparin -) 5,000 unit SQ TID [facility] Last Admin: 06/14/17 05:32 Dose: 5,000 unit Pantoprazole Sodium (Protonix -) 40 mg PO BID [facility] Last Admin: 06/14/17 09:45 Dose: 40 mg HOSPITAL COURSE: Date of Admission:06/11/17 Date of Discharge: 06/14/17 Pre-admission course: 81yo F with PMH of HTN, dementia, COPD, and lung nodule who presented to ED after being found at home on the floor. She was last seen well by her nephew two days prior. He was unable to contact her despite continuous phone calls. 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 She stated that she was "just sleeping ," though she was on a rug in the living room, away from her bedroom. It is unclear whether she had a syncopal episode or had a mechanical fall. For this reason, nephew called EMS and she was brought to the hospital. Her vitals were WNL en route, BP 130/80, HR 90. Pt endorses decreased PO intake over the last week as well as generalized pain in her lumbar back, which is chronic. Recently , pt has also "felt unwell," with productive cough, dysuria, and weakness. Denies CP, LANZA, SOB, abdominal pain, N/V. ER course was notable for: (1)CT head/neck was negative for acute pathology (2)BUN 146 Cr. 4.9 (3)K+4.9 , Na 147 Subsequent hospital course: Patient was found to have electrolyte abnormalities and CHAVA likely 2/2 to decreased PO intake causing acute metabolic encephalopathy. Hyperkalemia was treated with kayexelate and she received IVFs for correction of her hypernatremia. On discharge, her electrolytes were wnl and IVF were discontinued. Her CHAVA resolved and her Cr decreased to 1.0 (baseline Cr in 2017 0.7-0.8). She was found to have mildly elevated Troponins likely due to CHAVA. Her troponins trended flat, she had no ischemic changes on EKG, and no complaints of chest pain or discomfort. 2D echocardiogram was performed 06/13/17, which revealed normal LV size and systolic function, EF 55-60%, no RWA, mild MR, mild MD, RA and RV not well visualized. In the setting of CHAVA, her home lisinopril was held. The patient's HTN was well controlled off medications. Her medications can be re-started upon discharge. Renal U/S revealed no hydronephrosis, but mildly atrophic kidneys. Head CT was performed, which revealed no acute pathology, however several old lacunar infarcts were noted (see below). Patient was not started on Aspirin due to concern for frequent falls. CT cervical and lumbar spine found no acute injuries (see below). Stable chronic lung nodules were also noted, which are being monitored by her PCP. In addition, bilateral hypoattenuating thyroid nodules measuring up to 1.0 cm on the right were identified. Right shoulder XRAY revealed old rib fracture, but no acute injury. IMAGING: CT/CERVICAL SPINE CT W/O CONTR Indication: Found down. Technique: Noncontrast cervical spine CT. Comparison: None available. Correlation made to the 01/14/[address] Findings: There is osseous demineralization. There is no definite acute fracture in the cervical spine. The cervical vertebral bodies are normal in height. Mild anterior wedging of the T1 vertebral body without retropulsion appears similar to the 01/14/[address], allowing for differences in technique. There is grade 1 anterolisthesis of C3 on C4 and C4 on C5, each measuring 2-3 mm. There is no pathologic thickening of the prevertebral soft tissues. There is posterior facet arthropathy and disc space narrowing at all levels of the cervical spine. Disc space narrowing is most severe at C5-C6. There is degenerative osseous fusion of the left C3- C4 and right C4-C5 posterior facets. There is multilevel uncovertebral hypertrophy. There is moderate canal stenosis at C4-C5 and C5-C6 secondary to posterior disc osteophyte complex and posterior arch hypertrophy. There is severe narrowing of the neural foramina at all levels from C3- C4 through C5-C6 and on the left at C6-C7. There are several pulmonary nodules in the left lung apex, each measuring 3 mm. These are similar to 01/14/[address] There are bilateral hypoattenuating thyroid nodules measuring up to 1.0 cm on the right. These can be correlated with thyroid function tests and nonemergent thyroid sonogram. Impression: 1. No evidence of acute fracture or traumatic subluxation in the cervical spine. Grade 1 anterolisthesis of C3 on C4 and C4 on C5 as above are presumably chronic and degenerative. 2. Cervical spondylosis with canal and neural foraminal stenosis as described above. 3. Nonspecific pulmonary nodules in the left lung apex, similar to 01/14/[address]/HEAD CT WITHOUT CONTRAST Indication: Found down. Technique: Noncontrast head CT. Comparison: None available. Findings: There is no acute intracranial hemorrhage or focal extra-axial collection. There are ill-defined area of hypoattenuation within bilateral gangliocapsular regions, extending towards the mccoy radiata (slightly larger on the right). There is a small chronic infarct in the inferior right frontal subcortical white matter extending towards the subinsular white matter. There is a small chronic lacunar infarct in the left caudate body. There is no mass effect, midline shift or hydrocephalus. There is generalized, age-related volume loss. The calvarium is intact. The visualized paranasal sinuses and mastoid air cells are clear. Impression: 1. Age indeterminant infarction within bilateral gangliocapsular regions extending towards the mccoy radiata (larger on the right) please correlate clinically neurologic exam and with MRI, if there are no contraindications. 2. No acute intracranial hemorrhage, mass effects or hydrocephalus. 3. Small chronic right frontal white matter infarct and chronic lacunar infarct in the left caudate nucleus. CT/LUMBAR SPINE CT W/O CONTRAST Indication: Found down. Technique: Noncontrast CT of the lumbar spine. Comparison: 12/07/2013 by spine x-ray. Findings: For the purposes of this dictation, the spine is labeled so that T12 has hypoplastic ribs and aerated sacralization of L5. There is osseous demineralization with no definite acute fracture. The vertebral bodies are normal in height and configuration. There is mild levoconvex curvature in the lumbar spine and trace degenerative anterolisthesis of L3 on L4 measuring 2 mm. There is disc space narrowing with vacuum at all levels in the lumbar spine. The disc space narrowing is most severe at L4 -L5. T11-T12: No significant canal or neural foraminal stenosis. T12-L1: Shallow left paracentral disc protrusion with no significant canal or neural foraminal stenosis. L1-L2: Shallow bulging annulus and facet arthropathy with thickening of ligamentum flavum. No significant canal stenosis, mild narrowing of the left neural foramen and moderate to severe narrowing of the right neural foramen with mass effect on exiting right L1 nerve. L2-L3: Bulging annulus and facet arthropathy with thickening of ligamentum flavum resulting in mild canal stenosis and moderately narrowing the right neural foramen. The left neural foramen is ample. L3-L4: Uncovering and superimposed bulging of the posterior annulus, facet arthropathy (right more than left) and thickening of the ligamentum flavum. There is mild canal stenosis , moderate narrowing of the left neural foramen with encroachment upon the left L3 nerve and moderate to severe narrowing of the right neural foramen with mass effect on the right L3 nerve. L4-L5: Bulging annulus with calcified central disc extrusion inferiorly migrated to the mid L5 vertebral body. There is facet arthropathy (left more than right) with thickening of ligamentum flavum. There is mild canal stenosis, mild narrowing of the right neural foramen and moderate to severe narrowing of the left neural foramen with mass effect on exiting left L4 nerve. L5-S1: No significant canal or neural foraminal stenosis. There is moderate calcific atherosclerosis along the abdominal aorta and branch vessels. There are degenerative changes in the sacroiliac joints. Impression: 1. No evidence of acute fracture or traumatic subluxation in the lumbar spine. 2. Lumbar spondylosis with multilevel canal and neural foraminal stenosis as described above. As refer to the report above for detailed evaluation at each level. 3. Spine is labeled so that there is sacralization of L5 and hypoplastic ribs at T12. US/KIDNEY / RENAL US Indication: Acute kidney injury. Technique: Real-time grayscale and color Doppler sonogram of the kidneys was performed by the technologist. Images are submitted for review. Comparison: None. Findings: The right kidney measures 9.4 cm in length and the left kidney measures 8.7 cm in length. There is trace right perirenal fluid, which may be seen in the setting of acute renal failure. Bilateral renal cortices are echogenic suggesting medical-renal disease, with normal cortical thickness. No hydronephrosis or shadowing calculus identified within either kidney. CT is more sensitive in detecting small renal calculi. There is normal and symmetric flow related Doppler signal in the renal sinuses. Impression: 1. No hydronephrosis. Trace right perirenal fluid may represent perirenal edema in the setting of acute renal failure. 2. Symmetric, borderline mildly atrophic kidneys with echogenic cortices suggesting nonspecific medical-renal disease [id number] RAD/SHOULDER-RIGHT XRAy Right shoulder: Pain. Findings: 2 views reveal no sign of fracture or subluxation no sign of blastic or lytic changes. There is old rib trauma. If symptoms persist, further imaging may be of help. Impression: No acute pathology. Minutes to complete discharge: 60 Discharge Summary Reason For Visit: ACUTE KIDNEY, ALTERED MENTAL STATUS Current Active Problems Acute kidney injury (Acute) Altered mental status (Acute) COPD (chronic obstructive pulmonary disease) (Acute) DVT prophylaxis (Acute) Dementia (Acute) HTN (hypertension) (Acute) Hyperkalemia (Acute) Hypernatremia (Acute) Condition: Stable - Instructions Diet, Activity, Other Instructions: You were admitted to the hospital after falling. You were bones were imaged and no injuries were found. Your electrolytes were low, which we repleated. You are being transferred to [facility]. Please follow their recommendations for activity and diet. They will provide you with your medications. Medications You are currently taking the following: Glucosa Garcia 2Kcl/Chondroitin Garcia [Glucosamine & Chondroitin Cap] 1 each PO DAILY 09/13/13 Potassium Gluconate 500 mg PO DAILY 09/13/13 Ranitidine HCl [Zantac] 150 mg PO BID 09/13/13 Red Yeast Rice 600 mg PO BID 09/13/13 Vitamin E - 400 unit PO DAILY 09/13/13 Cholecalciferol (Vitamin D3) [Vitamin D3] 1,000 unit PO DAILY tablet 09/06/14 Cranberry Fruit [Cranberry] 450 mg PO BID tablet 09/06/14 Vitamin A 8,000 unit PO DAILY capsule 09/06/14 Hydrocodone/Acetaminophen [Hydrocodone-Acetamin 10-325 mg] 1 each PO QID PRN Miscellaneous Drug Not In Syst [Outpatient Lab Test] 1 each ASDIR #1 mis Follow-ups: -Please have your blood chemistry drawn tomorrow (06/15/17) to check your Na levels. -Please make an appointment with Dr. Hammond when you are discharged from [facility]. Several old lacunar infarcts were noted on Head CT. Discuss with Dr. Hammond the risk/benefits of starting Aspirin. You were also noted to have thyroid nodules, which should be imaged further with Ultrasound and your thyroid function should be tested. Please return the Emergency Department if you have new, worsening, or concerning symptoms. Referrals: Khang Hammond MD [Primary Care Provider] - Disposition: RETIREMENT FACILITY - Home Medications Comprehensive Discharge Medication List: Ambulatory Orders Glucosa Garcia 2Kcl/Chondroitin Garcia [Glucosamine & Chondroitin Cap] 1 each PO DAILY 09/13/13 Potassium Gluconate 500 mg PO DAILY 09/13/13 Ranitidine HCl [Zantac] 150 mg PO BID 09/13/13 Red Yeast Rice 600 mg PO BID 09/13/13 Vitamin E - 400 unit PO DAILY 09/13/13 Cholecalciferol (Vitamin D3) [Vitamin D3] 1,000 unit PO DAILY tablet 09/06/14 Cranberry Fruit [Cranberry] 450 mg PO BID tablet 09/06/14 Vitamin A 8,000 unit PO DAILY capsule 09/06/14 Hydrocodone/Acetaminophen [Hydrocodone-Acetamin 10-325 mg] 1 each PO QID PRN Miscellaneous Drug Not In Syst [Outpatient Lab Test] 1 each ASDIR #1 misc This patient is new to me today: No Emergency Visit: No Critical Care patient: No - Discharge Referral Referred to [facility] Yes Physician Referral: Khang Hammond MD (Int Med)
[2017-06-14 14:31] VITALS: TEMP 98.2
[2017-06-14 14:35] VITALS: BP 118/78; PULSE 70
--- NOTE | 2017-06-14 15:14 | PN ---
Teaching Attending Note Name of Resident: Chata Ibrahim ATTENDING PHYSICIAN STATEMENT I saw and evaluated the patient. I reviewed the resident's note and discussed the case with the resident. I agree with the resident's findings and plan as documented. SUBJECTIVE: Patient is confused. She has no complaints. OBJECTIVE: Vital Signs Period Temp Pulse Resp BP Sys/Grande Pulse Ox Last 24 Hr 98.2 F-98.4 F 65-72 16-20 118-132/55-80 98-99 HEART: S1S2, RRR LUNGS: Clear ABDOMEN: Soft, non-tender, non-distended, normal BS EXTREMITIES: No edema Laboratory Results - last 24 hr 06/13/17 06/14/17 16:00 06:30 Sodium 148 H 145 Potassium 4.7 4.3 Chloride 119 H 113 H Carbon Dioxide 22 22 Anion Gap 7 L 10 BUN 46 H 34 H Creatinine 1.2 H 1.0 Random Glucose 85 78 Calcium 8.0 L 7.9 L Current Medications Generic Name Dose Route Start Last Admin Trade Name Freq PRN Reason Stop Dose Admin Albuterol/Ipratropium 1 amp 06/12/17 19:54 Duoneb - NEB Q6H PRN SHORTNESS OF BREATH Cholecalciferol 1,000 unit 06/13/17 10:00 06/14/17 09:46 Vitamin D3 - PO 1,000 unit DAILY TING Administration Heparin Sodium (Porcine) 5,000 unit 06/12/17 22:00 06/14/17 14:12 Heparin - SQ Not Given TID TING Pantoprazole Sodium 40 mg 06/12/17 22:00 06/14/17 09:45 Protonix - PO 40 mg BID TING Administration ASSESSMENT AND PLAN: This is an 81 year old woman with a history of HTN, dementia, COPD, lung nodule , CVA who presented to the ED after being found on the floor for an undetermined length of time. 1. Acute metabolic encephalopathy secondary to hypernatrema and uremia - Mental status back to baseline 2. s/p fall - Continue PT 3. Hypernatremia - Improved 4. Acute kidney injury - Improved 5. Hyperkalemia secondary to CHAVA - Improved with Kayexalate 6. Hypokalemia - Improved 7. HTN - On no meds 8. COPD - Stable - Continue DuoNeb as needed 9. Malnutrition - Continue Ensure 10. Lung nodule 11. History of CVA 12. Dementia 13. Disposition - Plan for subacute rehab
== END 2017-06-14 17:46 | DRG 682 ==
LOC: JER 14:23 → JERBED 21:17 → J4W 06-11 → OBSVTOIN 06-11 14:31 → J8W 06-12 19:38
PROVIDERS: ADMIT Internal Medicine; ATTEND Internal Medicine
DX: N17.9 Acute kidney failure, unspecified (principal); G92 Toxic encephalopathy; E87.0 Hyperosmolality and hypernatremia; E46 Unspecified protein-calorie malnutrition; Z68.1 Body mass index [BMI] 19.9 or less, adult; E87.5 Hyperkalemia; R41.82 Altered mental status, unspecified; I10 Essential (primary) hypertension; J44.9 Chronic obstructive pulmonary disease, unspecified; F03.90 Unspecified dementia, unspecified severity, without behavioral disturbance, psychotic disturbance, mood disturbance, and anxiety; E87.6 Hypokalemia; R91.1 Solitary pulmonary nodule; M47.896 Other spondylosis, lumbar region; E86.0 Dehydration; F17.210 Nicotine dependence, cigarettes, uncomplicated
CPT/HCPCS: 36415; 70450-TC; 71045-TC-FY; 72125-TC; 72131-TC; 73030-TC-RT-FY; 76775-TC; 80048; 80053; 81003; 81015; 82272; 82550; 82570; 82962; 83735; 83930; 83935; 84100; 84156; 84300; 84484; 85025; 87086; 87186; 93005; 93010; 93306-TC; 94640; 97116-GP; 97161-GP; 99283-25; G0378; J1644; J7030; J7620

== ENCOUNTER 2019-10-19 16:47 | Inpatient (IN) | payer OTHER, BC ==
--- NOTE | 2019-10-19 18:17 | PDOC ---
History of Present Illness - General Stated Complaint: GI BLEED Time Seen by Provider: 10/19/19 17:14 - History of Present Illness Initial Comments: Ms Holder is an 84 yo female with PMH of dementia, PUD, hemorrhoids brought in by EMS from [facility] for rectal bleeding. She was laying in bloody feces by her nurse. Although she has a baseline dementia and is a poor historian, she was able to answer questions and maintained her answers consiste ntly. She endorses having bloody stools. She denies cp, sob, nausea, vomiting, diarrhea, constipation, hematuria. 10/19/19 18:14 Past History - Medical History Allergies/Adverse Reactions: Allergies Allergy/AdvReac Type Severity Reaction Status Date / Time Penicillins Allergy Rash Verified 06/10/17 16:48 Pollen Allergy Mild Uncoded 06/10/17 16:48 Home Medications: Ambulatory Orders Acetaminophen [Tylenol -] 500 mg PO Q4H 10/19/19 Atenolol [Tenormin -] 25 mg PO DAILY 10/19/19 Escitalopram Oxalate [Lexapro -] 20 mg PO DAILY 10/19/19 Hydrocodone/Acetaminophen [Hydrocodone-Acetamin 10-300 mg] 1 each PO HS 10/19/19 Lidocaine 4% Topical [Xylocaine 4% Topical] 1 applic MM DAILY 10/19/19 Melatonin 3 mg PO DAILY 10/19/19 Sennosides [Senna] 8.6 mg PO DAILY 10/19/19 Anemia: No Asthma: No Cancer: No Cardiac Disorders: No CVA: No COPD: No CHF: No Dementia: No Diabetes: No GI Disorders: No Disorders: No HTN: Yes Hypercholesterolemia: No Liver Disease: No Seizures: No Thyroid Disease: No - Surgical History Abdominal Surgery: No Appendectomy: Yes Cardiac Surgery: No Cholecystectomy: No Lung Surgery: No Neurologic Surgery: No Orthopedic Surgery: No - Psycho-Social/Smoking History Smoking History: Current every day smoker Have you smoked in the past 12 months: Yes Number of Cigarettes Smoked Daily: 20 Review of Systems - Review of Systems Constitutional: No: Chills, Fever, Loss of Appetite HEENTM: No: Recent change in vision, Double Vision Respiratory: No: Cough, Shortness of Breath Cardiac (ROS): No: Chest Pain, Palpitations ABD/GI: Yes: Blood Streaked Bowels. No: Constipated, Diarrhea, Nausea : No: Burning, Dysuria, Pain Musculoskeletal: No: Back Pain, Muscle Pain Integumentary: No: Change in Color, Dryness, Erythema Neurological: No: Headache, Tingling, Ataxia Psychiatric: No: Anxiety, Depression, Mood Swings Endocrine: No: Intolerance to Cold, Intolerance to Heat, Increased Urine *Physical Exam - Physical Exam General Appearance: Yes: Nourished, Appropriately Dressed. No: Apparent Distress HEENT: positive: EOMI, Normal Voice Respiratory/Chest: positive: Lungs Clear, Normal Breath Sounds. negative: Chest Tender Cardiovascular: positive: Regular Rhythm, Regular Rate, S1, S2 Gastrointestinal/Abdominal: positive: Tender (diffusely tender in all regions.), Flat, Soft Rectal Exam: positive: normal rectal tone, melena, hemorrhoids Musculoskeletal: positive: Normal Inspection, Decreased Range of Motion Extremity: positive: Normal Capillary Refill, Normal Inspection, Tender. negative: Normal Range of Motion Integumentary: positive: Normal Color, Dry, Warm Neurologic: positive: Alert, Other (oriented to person. disoriented to place/time) ED Treatment Course - LABORATORY CBC & Chemistry Diagram: 10/19/19 17:35 10/19/19 17:35 Medical Decision Making - Medical Decision Making 84 yo female with PMH of Hemorrhoids, PUD, dementia, CVA, dementia brought in by EMS after being found at [facility] covered in bloody stool. Heme occult blood test, CBC, CMP, UA, Lactic, Coags were ordered. CT abdomen was ordered. Sign out to Olegario Palacios. 10/19/19 18:22 10/19/19 19:14 Discharge - Discharge Information Problems reviewed: Yes Clinical Impression/Diagnosis: Rectal bleeding - Follow up/Referral - Patient Discharge Instructions - Post Discharge Activity
[2019-10-19] MEDS ORDERED: SODIUM CHLORIDE 500 ML IV STA (18:18)
[2019-10-19 18:25] LABS: BASO % 0.1 % (0-2.0); HEMATOCRIT 35.1 % (32.4-45.2); HEMOGLOBIN 11.2 GM/dL (10.7-15.3); LYMPH % 5.8 % (8-40); MCH 28.7 pg (25.7-33.7); MCHC 31.9 g/dl (32.0-36.0); MEAN PLT VOLUME 9.8 fl (7.5-11.1); MONO % 5.3 % (3.8-10.2); NEUT % 88.8 % (42.8-82.8); PLATELET COUNT 245 K/MM3 (134-434); RDW 15.6 % (11.6-15.6); WHITE BLOOD COUNT 20.4 K/mm3 (4.0-10.0)
[2019-10-19 18:31] LABS: EPI CELLS 16 /uL (0-25.1); HYALINE CASTS 6 /uL (0-3.1); URINE APPEARANCE CLOUDY; URINE BACTERIA 9 /uL (0-1359); URINE BILIRUBIN NEGATIVE (NEGATIVE); URINE COLOR YELLOW; URINE GLUCOSE (UA) NEGATIVE (NEGATIVE); URINE KETONE NEGATIVE (NEGATIVE); URINE LEUK ESTERASE NEGATIVE (NEGATIVE); URINE NITRITE NEGATIVE (NEGATIVE); URINE PROTEIN 1+ (NEGATIVE); URINE RBC 18 /uL (0-23.9); URINE UROBILINOGEN 0.2 mg/dL (0.2-1.0); URINE WBC 14 /uL (0-25.8)
[2019-10-19 18:42] LABS: INR 1.26 (0.83-1.09); PROTHROMBIN TIME (PATIENT) 14.9 SEC (9.7-13.0)
[2019-10-19 18:44] LABS: ACTIVATED PTT 29.2 SECONDS (25.2-36.5)
[2019-10-19 18:53] LABS: ALBUMIN 2.8 g/dl (3.4-5.0); BILIRUBIN,TOTAL 0.3 mg/dL (0.2-1); BLOOD UREA NITROGEN 95.3 mg/dL (7-18); CALCIUM 9.6 mg/dL (8.5-10.1); POTASSIUM 4.3 mmol/L (3.5-5.1); TOT PROT 6.2 g/dl (6.4-8.2)
[2019-10-19 18:55] LABS: ANISOCYTOSIS 1+; MACROCYTOSIS 1+; ROULEAU 1+
[2019-10-19 18:57] LABS: PLATELET ESTIMATE ADEQUATE
--- NOTE | 2019-10-19 19:04 | PDOC ---
*Physical Exam - Vital Signs Last Vital Signs Temp Pulse Resp BP Pulse Ox 98.9 F 97 H 17 118/68 98 10/19/19 16:50 10/19/19 16:50 10/19/19 16:50 10/19/19 16:50 10/19/19 16:50 ED Treatment Course - LABORATORY CBC & Chemistry Diagram: 10/19/19 17:35 10/19/19 17:35 - ADDITIONAL ORDERS Additional order review: Laboratory Results 10/19/19 10/19/19 10/19/19 17:35 17:35 17:35 PT with INR 14.90 H INR 1.26 H PTT (Actin FS) 29.2 Sodium 143 Potassium 4.3 Chloride 105 Carbon Dioxide 22 Anion Gap 15 BUN 95.3 H Creatinine 2.0 H Est GFR (CKD-EPI)AfAm 25.73 Est GFR (CKD-EPI)NonAf 22.20 Random Glucose 132 H Calcium 9.6 Total Bilirubin 0.3 AST 22 ALT 13 Alkaline Phosphatase 91 Creatine Kinase 197 H Troponin I 0.08 H Total Protein 6.2 L Albumin 2.8 L Urine Color Yellow Urine Appearance Cloudy Urine pH 5.0 Ur Specific [place] 1.019 Urine Protein 1+ H Urine Glucose (UA) Negative Urine Ketones Negative Urine Blood 1+ H Urine Nitrite Negative Urine Bilirubin Negative Urine Urobilinogen 0.2 Ur Leukocyte Esterase Negative Urine WBC (Auto) 14 Urine RBC (Auto) 18 Urine Casts (Auto) 6 U Pathogenic Cast Auto None seen U Epithel Cells (Auto) 16 Urine Bacteria (Auto) 9 10/19/19 17:35 RBC 3.90 MCV 90.0 MCHC 31.9 L RDW 15.6 MPV 9.8 Neutrophils % 88.8 H D Lymphocytes % 5.8 L D Monocytes % 5.3 Eosinophils % 0.0 D Basophils % 0.1 Medical Decision Making - Medical Decision Making 10/19/19 19:11 signed out from day team [x] f/u CT [x] admit 10/19/19 22:09 CT A/P report: consistent w/ acute ned; colonic diverticulosis and chronic pancreatitis. Pt has received flagyl and levoquin Dr. Templeton aware Admit Discharge - Discharge Information Problems reviewed: Yes Clinical Impression/Diagnosis: Rectal bleeding - Follow up/Referral - Patient Discharge Instructions - Post Discharge Activity
[2019-10-19] MEDS ORDERED: PANTOPRAZOLE SODIUM 40 MG VIAL IVPUSH ONE (19:10)
--- NOTE | 2019-10-19 19:12 | PDOC ---
Documentation entered by Guera Fagan SCRIBE, acting as scribe for Geoff Casiano MD. Geoff Casiano MD: This documentation has been prepared by the Rylan walls Sydney, SCRIBE, under my direction and personally reviewed by me in its entirety. I confirm that the documentation accurately reflects all work, treatment, procedures, and medical decision making performed by me. Attending Attestation - Resident Resident Name: ClydesofikelvinThiagodarin - ED Attending Attestation I have performed the following: I have examined & evaluated the patient, The case was reviewed & discussed with the resident, I agree w/resident's findings & plan, Exceptions are as noted - HPI HPI: 10/19/19 18:25 Patient is a 84 year old female with a significant past medical history of COPD, HTN, dementia at baseline who presents to the ED via EMS from [facility] with possible GI bleed. HPI is limited secondary to patients dementia. As per the retirement, the patient was found in a pool of her urine and bloody stool in bed. Allergies: Penicillin - Physicial Exam PE: 10/19/19 18:25 See resident exam - Medical Decision Making 10/19/19 19:17 84 F with GI bleed and abdominal pain. - Labs - CTAP Discharge - Discharge Information Problems reviewed: Yes Clinical Impression/Diagnosis: Rectal bleeding - Follow up/Referral - Patient Discharge Instructions - Post Discharge Activity
[2019-10-19] MEDS ORDERED: PANTOPRAZOLE SODIUM 40 MG VIAL ONE (19:32)
[2019-10-19 20:08] VITALS: BMI 25.1
[2019-10-19] MEDS ORDERED: LORazepam 2 MG/ML SDV VIAL ONE (20:53)
--- NOTE | 2019-10-19 22:52 | HP ---
CHIEF COMPLAINT: Rectal Bleeding PCP: Sarah Coleman HISTORY OF PRESENT ILLNESS: This is a 84 y/o female from [facility] with a significant past medical history of COPD, HTN, Dementia (at baseline), PUD, Hemorrhoids. Who presents to the ED via ambulance for possible GI bleed. HPI is limited secondary to patients Dementia. As per the care home, the patient was found in a pool of her urine and bloody stool in bed. ER course was notable for: (1) CTAP- gallbladder overdistention, GBW thickening, pericholecystic soft tissue stranding- findings suggestive of acute cholecystitis, cholelithiasis (2) BUN 95 (3) Cr 2.0 Recent Travel: None PAST MEDICAL HISTORY: COPD HTN Dementia PUD Hemorrhoids PAST SURGICAL HISTORY: Unknown Social History: Smoking: Former Alcohol: None Drugs: None Resides in SNF Allergies Penicillins Allergy (Verified 06/10/17 16:48) Rash Pollen Allergy (Mild, Uncoded 06/10/17 16:48) HOME MEDICATIONS: Home Medications Medication Instructions Recorded Acetaminophen [Tylenol -] 500 mg PO Q4H 10/19/19 Atenolol [Tenormin -] 25 mg PO DAILY 10/19/19 Escitalopram Oxalate [Lexapro -] 20 mg PO DAILY 10/19/19 Hydrocodone/Acetaminophen 1 each PO HS 10/19/19 [Hydrocodone-Acetamin 10-300 mg] Lidocaine 4% Topical [Xylocaine 4% 1 applic MM DAILY 10/19/19 Topical] Melatonin 3 mg PO DAILY 10/19/19 Sennosides [Senna] 8.6 mg PO DAILY 10/19/19 REVIEW OF SYSTEMS- Unable to Obtain- Dementia CONSTITUTIONAL: Absent: fever, chills, diaphoresis, generalized weakness, malaise, loss of appetite, weight change HEENT: Absent: rhinorrhea, nasal congestion, throat pain, throat swelling, difficulty swallowing, mouth swelling, ear pain, eye pain, visual changes CARDIOVASCULAR: Absent: chest pain, syncope, palpitations, irregular heart rate, lightheadedness, peripheral edema RESPIRATORY: Absent: cough, shortness of breath, dyspnea with exertion, orthopnea, wheezing, stridor, hemoptysis GASTROINTESTINAL: Absent: abdominal pain, abdominal distension, nausea, vomiting, diarrhea, constipation, melena, hematochezia GENITOURINARY: Absent: dysuria, frequency, urgency, hesitancy, hematuria, flank pain, genital pain MUSCULOSKELETAL: Absent: myalgia, arthralgia, joint swelling, back pain, neck pain SKIN: Absent: rash, itching, pallor HEMATOLOGIC/IMMUNOLOGIC: Absent: easy bleeding, easy bruising, lymphadenopathy, frequent infections ENDOCRINE: Absent: unexplained weight gain, unexplained weight loss, heat intolerance, cold intolerance NEUROLOGIC: Absent: headache, focal weakness or paresthesias, dizziness, unsteady gait, seizure, mental status changes, bladder or bowel incontinence PSYCHIATRIC: Absent: anxiety, depression, suicidal or homicidal ideation, hallucinations. PHYSICAL EXAMINATION Vital Signs - 24 hr 10/19/19 16:50 Temperature 98.9 F Pulse Rate 97 H Respiratory 17 Rate Blood Pressure 118/68 O2 Sat by Pulse 98 Oximetry (%) GENERAL: Awake, alert, oriented to name only, in no acute distress. HEAD: Normal with no signs of trauma. EYES: Pupils equal, round and reactive to light, extraocular movements intact, sclera anicteric, conjunctiva clear. No lid lag. EARS, NOSE, THROAT: Ears normal, nares patent, oropharynx clear without exudates. Dry mucous membranes. NECK: Normal range of motion, supple without lymphadenopathy, JVD, or masses. LUNGS: Breath sounds diminished at bases. No wheezes, and no crackles. No accessory muscle use. HEART: Regular rate and rhythm, normal S1 and S2 without murmur, rub or gallop. ABDOMEN: Generalized tenderness, hypoactive bowel sounds, Soft, not distended, no guarding, no rebound, no masses. No hepatomegaly or splenomegaly. Rectum: + external hemorrhoid, + stool occult MUSCULOSKELETAL: Normal range of motion at all joints. No bony deformities or tenderness. No CVA tenderness. UPPER EXTREMITIES: 2+ pulses, warm, well-perfused. No cyanosis. No clubbing. No peripheral edema. LOWER EXTREMITIES: 2+ pulses, warm, well-perfused. No calf tenderness. No peripheral edema. NEUROLOGICAL: Cranial nerves II-XII intact. Normal speech. Gait not observed. PSYCHIATRIC: Cooperative. Some eye contact. Appropriate mood and affect. SKIN: Warm, dry, normal turgor, no rashes or lesions noted, normal capillary refill. Laboratory Results - last 24 hr 10/19/19 10/19/19 10/19/19 17:35 17:35 17:35 WBC RBC Hgb Hct MCV MCH MCHC RDW Plt Count MPV Absolute Neuts (auto) Neutrophils % Neutrophils % (Manual) Band Neutrophils % Lymphocytes % Lymphocytes % (Manual) Monocytes % Monocytes % (Manual) Eosinophils % Eosinophils % (Manual) Basophils % Basophils % (Manual) Myelocytes % (Man) Promyelocytes % (Man) Blast Cells % (Manual) Nucleated RBC % Metamyelocytes Hypochromia Platelet Estimate Platelet Comment Polychromasia Poikilocytosis Anisocytosis Microcytosis Macrocytosis Rouleaux PT with INR 14.90 H INR 1.26 H PTT (Actin FS) 29.2 Sodium 143 Potassium 4.3 Chloride 105 Carbon Dioxide 22 Anion Gap 15 BUN 95.3 H Creatinine 2.0 H Est GFR (CKD-EPI)AfAm 25.73 Est GFR (CKD-EPI)NonAf 22.20 Random Glucose 132 H Lactic Acid Calcium 9.6 Total Bilirubin 0.3 AST 22 ALT 13 Alkaline Phosphatase 91 Creatine Kinase 197 H Creatine Kinase Index 3.3 CK-MB (CK-2) 6.6 H Troponin I 0.08 H Total Protein 6.2 L Albumin 2.8 L Urine Color Yellow Urine Appearance Cloudy Urine pH 5.0 Ur Specific Exmore 1.019 Urine Protein 1+ H Urine Glucose (UA) Negative Urine Ketones Negative Urine Blood 1+ H Urine Nitrite Negative Urine Bilirubin Negative Urine Urobilinogen 0.2 Ur Leukocyte Esterase Negative Urine WBC (Auto) 14 Urine RBC (Auto) 18 Urine Casts (Auto) 6 U Pathogenic Cast Auto None seen U Epithel Cells (Auto) 16 Urine Bacteria (Auto) 9 Stool Occult Blood Blood Type Antibody Screen 10/19/19 10/19/19 10/19/19 17:35 17:35 17:35 WBC 20.4 H RBC 3.90 Hgb 11.2 Hct 35.1 MCV 90.0 MCH 28.7 D MCHC 31.9 L RDW 15.6 Plt Count 245 D MPV 9.8 Absolute Neuts (auto) 18.1 H Neutrophils % 88.8 H D Neutrophils % (Manual) 86.3 H Band Neutrophils % 1.9 Lymphocytes % 5.8 L D Lymphocytes % (Manual) 6.9 L Monocytes % 5.3 Monocytes % (Manual) 4 Eosinophils % 0.0 D Eosinophils % (Manual) 0.0 Basophils % 0.1 Basophils % (Manual) 0.0 Myelocytes % (Man) 0 Promyelocytes % (Man) 0 Blast Cells % (Manual) 0 Nucleated RBC % 0 Metamyelocytes 1 Hypochromia 1+ Platelet Estimate Adequate Platelet Comment No clumping noted Polychromasia 0 Poikilocytosis 0 Anisocytosis 1+ Microcytosis 0 Macrocytosis 1+ Rouleaux 1+ PT with INR INR PTT (Actin FS) Sodium Potassium Chloride Carbon Dioxide Anion Gap BUN Creatinine Est GFR (CKD-EPI)AfAm Est GFR (CKD-EPI)NonAf Random Glucose Lactic Acid 1.8 Calcium Total Bilirubin AST ALT Alkaline Phosphatase Creatine Kinase Creatine Kinase Index CK-MB (CK-2) Troponin I Total Protein Albumin Urine Color Urine Appearance Urine pH Ur Specific Exmore Urine Protein Urine Glucose (UA) Urine Ketones Urine Blood Urine Nitrite Urine Bilirubin Urine Urobilinogen Ur Leukocyte Esterase Urine WBC (Auto) Urine RBC (Auto) Urine Casts (Auto) U Pathogenic Cast Auto U Epithel Cells (Auto) Urine Bacteria (Auto) Stool Occult Blood Blood Type O POSITIVE Antibody Screen Negative 10/19/19 17:55 WBC RBC Hgb Hct MCV MCH MCHC RDW Plt Count MPV Absolute Neuts (auto) Neutrophils % Neutrophils % (Manual) Band Neutrophils % Lymphocytes % Lymphocytes % (Manual) Monocytes % Monocytes % (Manual) Eosinophils % Eosinophils % (Manual) Basophils % Basophils % (Manual) Myelocytes % (Man) Promyelocytes % (Man) Blast Cells % (Manual) Nucleated RBC % Metamyelocytes Hypochromia Platelet Estimate Platelet Comment Polychromasia Poikilocytosis Anisocytosis Microcytosis Macrocytosis Rouleaux PT with INR INR PTT (Actin FS) Sodium Potassium Chloride Carbon Dioxide Anion Gap BUN Creatinine Est GFR (CKD-EPI)AfAm Est GFR (CKD-EPI)NonAf Random Glucose Lactic Acid Calcium Total Bilirubin AST ALT Alkaline Phosphatase Creatine Kinase Creatine Kinase Index CK-MB (CK-2) Troponin I Total Protein Albumin Urine Color Urine Appearance Urine pH Ur Specific Exmore Urine Protein Urine Glucose (UA) Urine Ketones Urine Blood Urine Nitrite Urine Bilirubin Urine Urobilinogen Ur Leukocyte Esterase Urine WBC (Auto) Urine RBC (Auto) Urine Casts (Auto) U Pathogenic Cast Auto U Epithel Cells (Auto) Urine Bacteria (Auto) Stool Occult Blood Positive Blood Type Antibody Screen ASSESSMENT/PLAN: This is a 84 y/o female from [facility] with a significant past medical history of COPD, HTN, dementia (at baseline), PUD, Hemorrhoids. Admitted to Telemetry for Acute Cholecystitis, GI Bleed for further evaluation of their emergent condition. Plan: See Problem List FEN D50.45%NS@42ml/hr Replete lytes prn NPO DVT ppx OOB SCDs Hold AC secondary to GI Bleed Code Status: Full Code Dispo: Requires Inpatient Care Family Medical History Family History: Unable to Obtain Problem List - Problem (1) GI bleed Assessment/Plan: Likely due to Diverticular vs Hemorrhoid vs Malignancy Stool Occult + H/H stable Appreciate GI consult Monitor CBC Tele monitoring NPO Code(s): K92.2 - GASTROINTESTINAL HEMORRHAGE, UNSPECIFIED (2) Acute cholecystitis Assessment/Plan: CTAP image, report reviewed- interval development of gallbladder over-distention with GBW thickening. Pericholecystic soft tissue stranding. Findings are suggestive of acute cholecystitis. mild CBD dilatation. 6.3 cm diverticulum near duodenal sweep increased in size from 4.3 cm. Interval development of right renal atrophy. Several small pancreatic head calcifications suggestive of chronic pancreatitis. Stable bilateral adrenal adenomas. Colonic diverticulosis. Stable 2 x 1.4 cm submucosal lipoma within the mid ascending colon WBC 20.4 Blood Cultures-pending Metronidazole, Levofloxacin given in ED, continue renal dosing Appreciate Surgical consult- Dr Templeton, aware per ED resident NPO Gentle IVF Monitor CBC, CMP Monitor vitals Code(s): K81.0 - ACUTE CHOLECYSTITIS (3) Acute kidney injury Assessment/Plan: Baseline 0.7-1.0 NS bolus Gentle IVF Renal US 06/2017- no hydronephrosis, symmetric borderline mildly atrophic kidneys with echogenic cortices suggesting nonspecific medical-renal disease Consider Nephrology consult Consider Renal US Monitor CMP Avoid Nephrotoxic meds Code(s): N17.9 - ACUTE KIDNEY FAILURE, UNSPECIFIED (4) COPD (chronic obstructive pulmonary disease) Assessment/Plan: stable No acute flare Chest Xray image reviewed Continue Albuterol MDI Monitor Spo2 O2 Code(s): J44.9 - CHRONIC OBSTRUCTIVE PULMONARY DISEASE, UNSPECIFIED Qualifiers: COPD type: unspecified COPD Qualified Code(s): J44.9 - Chronic obstructive pulmonary disease, unspecified (5) Dementia Assessment/Plan: at baseline Fall Precautions Hold Lexapro secondary to NPO Ativan IV prn Code(s): F03.90 - UNSPECIFIED DEMENTIA WITHOUT BEHAVIORAL DISTURBANCE Qualifiers: Dementia type: Alzheimer's disease Alzheimer's disease onset: unspecified onset Dementia behavioral disturbance: without behavioral disturbance Qualified Code(s): G30.9 - Alzheimer's disease, unspecified; F02.80 - Dementia in other diseases classified elsewhere without behavioral disturbance (6) HTN (hypertension) Assessment/Plan: stable Monitor BP Hold PO med, consider IV as indicated Monitor renal function Code(s): I10 - ESSENTIAL (PRIMARY) HYPERTENSION Qualifiers: Hypertension type: essential hypertension Qualified Code(s): I10 - Essential (primary) hypertension Visit type - Emergency Visit Emergency Visit: Yes ED Registration Date: 10/19/19 Care time: The patient presented to the Emergency Department on the above date and was hospitalized for further evaluation of their emergent condition. - New Patient This patient is new to me today: Yes Date on this admission: 10/19/19 - Critical Care Critical Care patient: No
[2019-10-20] MEDS: DEXTROSE 5%-0.45% SALINE 1,000 ML IV SCH ×2 (03:00→23:18)
[2019-10-20 07:05] LABS: HEMATOCRIT 30.4 % (32.4-45.2); HEMOGLOBIN 9.7 GM/dL (10.7-15.3); LYMPH % 4.9 % (8-40); MCH 28.5 pg (25.7-33.7); MCHC 31.9 g/dl (32.0-36.0); MEAN CELL VOLUME 89.2 fl (80-96); MEAN PLT VOLUME 9.8 fl (7.5-11.1); MONO % 6.3 % (3.8-10.2); NEUT % 88.8 % (42.8-82.8); PLATELET COUNT 226 K/MM3 (134-434); RBC 3.41 M/mm3 (3.60-5.2); RDW 15.8 % (11.6-15.6); WHITE BLOOD COUNT 16.1 K/mm3 (4.0-10.0)
[2019-10-20 07:22] LABS: ALBUMIN 2.5 g/dl (3.4-5.0); BILIRUBIN,TOTAL 0.5 mg/dL (0.2-1); BLOOD UREA NITROGEN 81.1 mg/dL (7-18); CALCIUM 9.2 mg/dL (8.5-10.1); CREATININE 1.7 mg/dL (0.55-1.3); POTASSIUM 3.7 mmol/L (3.5-5.1); TOT PROT 5.6 g/dl (6.4-8.2)
--- NOTE | 2019-10-20 09:31 | PN ---
Progress Note, Physician - Current Medication List Current Medications: Active Medications Dextrose/Sodium Chloride (D5-1/2ns -) 1,000 mls @ 42 mls/hr IV ASDIR TING Last Admin: 10/20/19 03:00 Dose: 42 mls/hr Documented by: Metronidazole (Flagyl 500mg Premixed Ivpb -) 500 mg in 100 mls @ 100 mls/hr IVPB Q8H-IV TING Last Admin: 10/20/19 03:01 Dose: 100 mls/hr Documented by: Levofloxacin (Levaquin 750 Mg Premixed Ivpb -) 750 mg in 150 mls @ 150 mls/hr IVPB Q2D@1900 TING; Protocol - Objective Vital Signs: Vital Signs Temperature 99.2 F 10/20/19 05:00 Pulse Rate 101 H 10/20/19 05:00 Respiratory Rate 16 10/20/19 05:00 Blood Pressure 131/65 10/20/19 05:00 O2 Sat by Pulse Oximetry (%) 96 10/20/19 05:00 Cardiovascular: Yes: S1, S2 Respiratory: Yes: Regular, CTA Bilaterally Gastrointestinal: Yes: Normal Bowel Sounds, Soft Labs: CBC, BMP 10/20/19 06:13 10/20/19 06:13 INR, PTT INR 1.26 (0.83-1.09) H 10/19/19 17:35 Problem List - Problems (1) Anemia Assessment/Plan: IRON STUDIES FOLLOW LABS GI CONSULT Code(s): D64.9 - ANEMIA, UNSPECIFIED (2) Elevated troponin I level Code(s): R79.89 - OTHER SPECIFIED ABNORMAL FINDINGS OF BLOOD CHEMISTRY (3) Acute cholecystitis Assessment/Plan: IV ABX SURGICAL AND ID CONSULTS CULTURES Code(s): K81.0 - ACUTE CHOLECYSTITIS (4) GI bleed Assessment/Plan: FOLLOW LABS GI CONSULT Code(s): K92.2 - GASTROINTESTINAL HEMORRHAGE, UNSPECIFIED (5) Altered mental status Assessment/Plan: MAYBE DUE TO INFECTION NEURO CONSULT Code(s): R41.82 - ALTERED MENTAL STATUS, UNSPECIFIED Qualifiers: Altered mental status type: disorientation Qualified Code(s): R41.0 - Disorientation, unspecified (6) Dementia Code(s): F03.90 - UNSPECIFIED DEMENTIA WITHOUT BEHAVIORAL DISTURBANCE Qualifiers: Dementia type: Alzheimer's disease Alzheimer's disease onset: unspecified onset Dementia behavioral disturbance: without behavioral disturbance Qualified Code(s): G30.9 - Alzheimer's disease, unspecified; F02.80 - Dementia in other diseases classified elsewhere without behavioral disturbance
--- NOTE | 2019-10-20 10:02 | CONSULT ---
- Consultation REQUESTING PROVIDER: Uriel Casiano MD CONSULT REQUEST: We have been asked to surgically evaluate this patient for ? acute cholecystitis ? ? cholelithiasis ? ?BRBPR ? PCP:Sarah Coleman HISTORY OF PRESENT ILLNESS:ALISHA who is an 84 y/o female xferred from [facility] to the ED via ambulance for possible GI bleed. Patient cannot provide a hx. secondary to patients dementia. As per the [facility], the patient was found in a pool of her urine and bloody stool in her bed. No other hx. is available. PMHx: COPD/HTN/Dementia PSHx: unknown Home Medications Medication Instructions Recorded Acetaminophen [Tylenol -] 500 mg PO Q8H PRN 10/19/19 Atenolol [Tenormin -] 12.5 mg PO DAILY 10/19/19 Escitalopram Oxalate [Lexapro -] 20 mg PO DAILY 10/19/19 Hydrocodone/Acetaminophen 1 each PO BID PRN 10/19/19 [Hydrocodone-Acetamin 10-300 mg] Lidocaine 4% Topical [Xylocaine 4% 1 applic MM DAILY 10/19/19 Topical] Melatonin 3 mg PO HS 10/19/19 Sennosides [Senna] 2 tab PO HS 10/19/19 Allergies Allergy/AdvReac Type Severity Reaction Status Date / Time Penicillins Allergy Rash Verified 06/10/17 16:48 Pollen Allergy Mild Uncoded 06/10/17 16:48 REVIEW OF SYSTEMS: not obtainable from the patient; admission from 06/2017 reviewed Absent: fever, chills, diaphoresis, generalized weakness, malaise, loss of appetite, weight change CARDIOVASCULAR: Absent: chest pain, syncope, palpitations, irregular heart rate, lightheadedness, peripheral edema RESPIRATORY: Absent: cough, shortness of breath, dyspnea with exertion, wheezing, stridor, hemoptysis GASTROINTESTINAL: Absent: abdominal pain, abdominal distension, nausea, vomiting, diarrhea, constipation, melena, hematochezia GENITOURINARY: Absent: dysuria, frequency, urgency, hesitancy, hematuria, flank pain, genital pain MUSCULOSKELETAL: Absent: myalgia, arthralgia, joint swelling, back pain, neck pain SKIN: Absent: rash, itching, pallor HEMATOLOGIC/IMMUNOLOGIC: Absent: easy bleeding, easy bruising, lymphadenopathy NEUROLOGIC: Absent: headache, focal weakness, paresthesias, dizziness, unsteady gait, sei zure, mental status changes, bladder or bowel incontinence PSYCHIATRIC: Absent: anxiety, depression, suicidal or homicidal ideation, hallucinations. PHYSICAL EXAM: GENERAL: Awake, alert, and not fully oriented, in no acute distress. HEAD: Normal with no signs of trauma. EYES: sclera anicteric, conjunctiva clear. NECK: Normal ROM, supple without lymphadenopathy, JVD, or masses. ABDOMEN: Soft, nontender, not distended, normoactive bowel sounds, no guarding, no rebound, no masses. No organomegaly. No hernias. MUSCULOSKELETAL: Normal ROM at all joints. No bony deformities or tenderness. No CVA tenderness. UPPER EXTREMITIES: 2+ pulses, warm, well-perfused. No cyanosis. Cap refill <2 seconds. No peripheral edema. LOWER EXTREMITIES: 2+ pulses, warm, well-perfused. No calf tenderness. No peripheral edema. NEUROLOGICAL: Normal speech, gait not observed. PSYCH: Cooperative. Good eye contact. Appropriate mood and affect. SKIN: Warm, dry, normal turgor, no rashes or lesions noted. RECTAL: good sphincter tone; no mass; brown stool not checked for occult blood; no external anal pathology. Vital Signs Temperature 99.2 F 10/20/19 05:00 Pulse Rate 101 H 10/20/19 05:00 Respiratory Rate 16 10/20/19 05:00 Blood Pressure 131/65 10/20/19 05:00 O2 Sat by Pulse Oximetry (%) 96 10/20/19 05:00 Lab Results WBC 16.1 K/mm3 (4.0-10.0) H 10/20/19 06:13 RBC 3.41 M/mm3 (3.60-5.2) L 10/20/19 06:13 Hgb 9.7 GM/dL (10.7-15.3) L 10/20/19 06:13 Hct 30.4 % (32.4-45.2) L 10/20/19 06:13 MCV 89.2 fl (80-96) 10/20/19 06:13 MCHC 31.9 g/dl (32.0-36.0) L 10/20/19 06:13 RDW 15.8 % (11.6-15.6) H 10/20/19 06:13 Plt Count 226 K/MM3 (134-434) 10/20/19 06:13 INR 1.26 (0.83-1.09) H 10/19/19 17:35 Sodium 144 mmol/L (136-145) 10/20/19 06:13 Potassium 3.7 mmol/L (3.5-5.1) 10/20/19 06:13 Chloride 111 mmol/L (98-107) H 10/20/19 06:13 Carbon Dioxide 24 mmol/L (21-32) 10/20/19 06:13 Anion Gap 9 MMOL/L (8-16) 10/20/19 06:13 BUN 81.1 mg/dL (7-18) H 10/20/19 06:13 Creatinine 1.7 mg/dL (0.55-1.3) H 10/20/19 06:13 Random Glucose 114 mg/dL (74-106) H 10/20/19 06:13 Calcium 9.2 mg/dL (8.5-10.1) 10/20/19 06:13 Blood Type O POSITIVE 10/19/19 17:35 Antibody Screen Negative 10/19/19 17:35 Imaging w/u to date reviewed. IMP: clinically doubt acute cholelcystitis; h/o BRBPR at [facility] PLAN: NPO/IVF/US RUQ ordered; GI evaluation for BRBPR; will f/u. Geoff Templeton MD FACS
--- NOTE | 2019-10-20 11:03 | PN ---
Progress Note (short form) - Note Progress Note: ID CONSULT DICTATED ACUTE CHOLECYSTITIS R/O SEPSIS SECONDARY TO CHOLECYSTITIS ? GI BLEED PCN ALLERGY OBTAIN BC EMPIRIC CEFTRIAXONE/ FLAGYL
[2019-10-20] MEDS ORDERED: DEXTROSE 5%-WATER 100 ML IVPB ONE (11:41)
[2019-10-20] MEDS: CEFTRIAXONE 2 GM in DEXTROSE 5%-WATER 100 ML IVPB SCH (11:43)
--- NOTE | 2019-10-20 12:16 | PN ---
Progress Note (short form) - Note Progress Note: Attending Surgeon US results noted; limited but no gross evidence of cholelithiasis; suggest HIDA; if postive will advise percuataneous drainage in IR. Geoff Templeton MD FACS
--- NOTE | 2019-10-20 13:34 | CON.CARD ---
Consult Consult Specialty:: Cardiology Reason for Consultation:: preop eval - History of Present Illness History of Present Illness: 84 F with dementia. No known CAD or arrhythmia. was found with BRBPR. No dyspnea or reported pain. Evaluation suggests diverticula and has an enlarged gall blader and my need GI eval and possibly IR gdarinage if confirmed to have cholesystitis. Prior echocardiogeram showed normal LV function Unable to obtain history by the patient. - History Source History Provided By: Medical Record - Alcohol/Substance Use Hx Alcohol Use: No - Smoking History Smoking history: Unknown if ever smoked Have you smoked in the past 12 months: No Aproximately how many cigarettes per day: 20 Home Medications - Allergies Allergies/Adverse Reactions: Allergies Allergy/AdvReac Type Severity Reaction Status Date / Time Penicillins Allergy Rash Verified 06/10/17 16:48 Pollen Allergy Mild Uncoded 06/10/17 16:48 - Home Medications Home Medications: Ambulatory Orders Acetaminophen [Tylenol -] 500 mg PO Q8H PRN 10/19/19 Atenolol [Tenormin -] 12.5 mg PO DAILY 10/19/19 Escitalopram Oxalate [Lexapro -] 20 mg PO DAILY 10/19/19 Hydrocodone/Acetaminophen [Hydrocodone-Acetamin 10-300 mg] 1 each PO BID PRN 10/19/19 Lidocaine 4% Topical [Xylocaine 4% Topical] 1 applic MM DAILY 10/19/19 Melatonin 3 mg PO HS 10/19/19 Sennosides [Senna] 2 tab PO HS 10/19/19 Review of Systems Unable to obtain ROS, reason: dementia Vital Signs: Vital Signs Temperature 98.2 F 10/20/19 09:00 Pulse Rate 86 10/20/19 09:00 Respiratory Rate 18 10/20/19 09:00 Blood Pressure 139/60 10/20/19 09:00 O2 Sat by Pulse Oximetry (%) 95 10/20/19 09:00 Constitutional: Yes: Well Nourished, No Distress Eyes: Yes: Conjunctiva Clear, EOM Intact HENT: Yes: Atraumatic, Normocephalic Neck: Yes: Supple, Trachea Midline Respiratory: Yes: Regular, CTA Bilaterally Gastrointestinal: Yes: Normal Bowel Sounds, Soft Cardiovascular: Yes: Regular Rate and Rhythm JVD: No Carotid Bruit: No PMI: Non-Displaced Heart Sounds: Yes: S1, S2 Murmur: No: Systolic Murmur, Diastolic Murmur Edema: No - Other Data Labs, Other Data: CBC, BMP 10/20/19 06:13 10/20/19 06:13 INR, PTT INR 1.26 (0.83-1.09) H 10/19/19 17:35 Troponin, BNP 10/19/19 17:35 Troponin I 0.08 H Troponin, BNP 10/19/19 17:35 Troponin I 0.08 H Artifact. Sinus tachycardia. No ST T changes. Problem List - Problems (1) Preop cardiovascular exam Code(s): Z01.810 - ENCOUNTER FOR PREPROCEDURAL CARDIOVASCULAR EXAMINATION (2) Elevated troponin I level Code(s): R79.89 - OTHER SPECIFIED ABNORMAL FINDINGS OF BLOOD CHEMISTRY Assessment/Plan 84 F with dementia and BRBPR. Possible chohesystitis. Her ECG shows no ischemic changes. No arrhythmias on tlemetry noted and she is in NSR and there is no heart failure. Minimally elevated TP possibly from demand mediated injury due to infection or bleeding. No further interventions are advised. No cardiac contraindications to GI evaluation or IR cholesystostomy. If general anesthesia is required please reconsult. Monitor H/H and transfuse for Hgb <8
--- NOTE | 2019-10-20 14:54 | PN ---
Progress Note (short form) - Note Progress Note: GI CONSULT DICTATED
[2019-10-20 15:16] LABS: HEMATOCRIT 27.7 % (32.4-45.2); HEMOGLOBIN 8.9 GM/dL (10.7-15.3); MCHC 32.2 g/dl (32.0-36.0); MEAN CELL VOLUME 90.1 fl (80-96); MEAN PLT VOLUME 9.7 fl (7.5-11.1); PLATELET COUNT 195 K/MM3 (134-434); RBC 3.08 M/mm3 (3.60-5.2); RDW 15.6 % (11.6-15.6)
[2019-10-20] MEDS ORDERED: LORazepam 2 MG/ML SDV VIAL IVPUSH ONE ×2 (19:50→23:24)
--- NOTE | 2019-10-20 20:40 | HOSP ---
Subjective - Review of Symptoms Events since last encounter: Hospitalist Encounter Notified by the primary RN that the patient is agitated, combative with HR 130's-150's with PACs/PVCs was asked to assess. Arrived to bedside, patient is awake, AAOx0, speaking in a shouting tone very uncooperative not following simple verbal commands. Patient examined at bedside, see EMR Neurological: Yes: Confusion Other Systems: Psychological: Agitated, Combative Physical Examination Vital Signs: Vital Signs Temperature 97.9 F 10/20/19 13:00 Pulse Rate 102 H 10/20/19 13:00 Respiratory Rate 18 10/20/19 13:00 Blood Pressure 124/56 L 10/20/19 17:00 O2 Sat by Pulse Oximetry (%) 95 10/20/19 13:00 Constitutional: Yes: Moderate Distress, Other (agitated) Eyes: Yes: Conjunctiva Clear, PERRL HENT: Yes: Atraumatic, Normocephalic Neck: Yes: Supple, Trachea Midline Cardiovascular: Yes: Tachycardia, Pulse Irregular, S1, S2 Respiratory: Yes: Diminished (bases) Gastrointestinal: Yes: Soft, Hypoactive Bowel Sounds, Tenderness ...Rectal Exam: Yes: Deferred Renal/: Yes: Incontinence Breast(s): Yes: WNL Musculoskeletal: Yes: WNL Extremities: Yes: WNL Edema: No Peripheral Pulses WNL: Yes Neurological: Yes: Confusion Psychiatric: Yes: Agitated Labs: CBC, BMP 10/20/19 14:48 10/20/19 06:13 Laboratory Results - last 24 hr 10/20/19 10/20/19 10/20/19 06:13 06:13 12:40 WBC 16.1 H RBC 3.41 L Hgb 9.7 L Hct 30.4 L MCV 89.2 MCH 28.5 MCHC 31.9 L RDW 15.8 H Plt Count 226 MPV 9.8 Absolute Neuts (auto) 14.3 H Neutrophils % 88.8 H Lymphocytes % 4.9 L Monocytes % 6.3 Eosinophils % 0.0 Basophils % 0.0 Nucleated RBC % 0 Sodium 144 Potassium 3.7 Chloride 111 H Carbon Dioxide 24 Anion Gap 9 BUN 81.1 H Creatinine 1.7 H Est GFR (CKD-EPI)AfAm 31.32 Est GFR (CKD-EPI)NonAf 27.03 Random Glucose 114 H Calcium 9.2 Iron 26 L TIBC 166 L Iron Saturation 15 L Unsaturated IBC 140 L Ferritin 229.0 Total Bilirubin 0.5 AST 21 ALT 12 L Alkaline Phosphatase 77 Creatine Kinase 165 Creatine Kinase Index 2.6 CK-MB (CK-2) 4.3 H Troponin I 0.07 H Total Protein 5.6 L Albumin 2.5 L 10/20/19 14:48 WBC 14.0 H RBC 3.08 L Hgb 8.9 L Hct 27.7 L MCV 90.1 MCH 29.0 MCHC 32.2 RDW 15.6 Plt Count 195 MPV 9.7 Absolute Neuts (auto) Neutrophils % Lymphocytes % Monocytes % Eosinophils % Basophils % Nucleated RBC % Sodium Potassium Chloride Carbon Dioxide Anion Gap BUN Creatinine Est GFR (CKD-EPI)AfAm Est GFR (CKD-EPI)NonAf Random Glucose Calcium Iron TIBC Iron Saturation Unsaturated IBC Ferritin Total Bilirubin AST ALT Alkaline Phosphatase Creatine Kinase Creatine Kinase Index CK-MB (CK-2) Troponin I Total Protein Albumin Intake & Output 10/17/19 10/18/19 10/19/19 10/20/19 23:59 23:59 23:59 23:59 Intake Total 1028 Balance 1028 Weight 77.111 kg Current Medications Generic Name Dose Route Start Last Admin Trade Name Freq PRN Reason Stop Dose Admin Dextrose/Sodium Chloride 1,000 mls @ 42 mls/hr 10/19/19 23:00 10/20/19 03:00 D5-1/2ns - IV 42 mls/hr ASDIR TIGN Administration Metronidazole 500 mg in 100 mls @ 100 mls/hr 10/20/19 03:00 10/20/19 18:13 Flagyl 500mg Premixed Ivpb - IVPB 100 mls/hr Q8H-IV TING Administration Ceftriaxone Sodium 2 gm/ 100 mls @ 100 mls/hr 10/20/19 11:15 10/20/19 11:43 Dextrose IVPB 100 mls/hr DAILY TING Administration Protocol Hospitalist Encounter Assessment: This is a 84 y/o female from [facility] with a significant past medical history of COPD, HTN, dementia (at baseline), PUD, Hemorrhoids. Admitted to Telemetry for Acute Cholecystitis, GI Bleed Plan: Ativan IV x1 now EKG- stat Outcome: EKG- Afib with RVR Lopressor 5mg IV ordered Continue Tele monitoring Critical Care Total Critical Care Time (in minutes): 40 Critical Care Statement: The care of this patient involved high complexity decision making to prevent further life threatening deterioration of the patie nt's condition and/or to evaluate & treat vital organ system(s) failure or risk of failure.
[2019-10-20] MEDS ORDERED: METOPROLOL TARTRATE 5 MG/5 ML VIAL IVPUSH ONE (20:53)
--- NOTE | 2019-10-20 21:09 | CONS ---
INFECTIOUS DISEASE CONSULTATION DATE OF CONSULTATION: DATE OF DICTATION: 10/20/2019 The patient is an 84-year-old, demented female who is evaluated for acute cholecystitis. History was obtained from the chart as she cannot give a history secondary to her dementia. She is a long term resident. She was transferred to the hospital on October 19, 2019, after she was found to be in a pool of urine, blood, and stool in her bed at her nursing facility. She was transferred to the emergency room where she was evaluated. She was noted to have a low-grade fever and elevated white blood cell count. A CAT scan of the abdomen and pelvis was performed and showed a distended gallbladder with thickened gallbladder gonzalez and pericholecystic fluid consistent with acute cholecystitis. She was seen in consultation by Surgery and has been kept n.p.o. She was empirically treated with Levaquin and Flagyl. At the present time, she is awake. However, she is confused. She offers no complaints. She does not appear to be in any acute distress. No reports of vomiting or diarrhea. PAST MEDICAL HISTORY: Positive for dementia, COPD, hypertension. ALLERGIES: PENICILLIN (rash). MEDICATIONS: At the present time include Levaquin, Flagyl, Ativan, Protonix. SOCIAL HISTORY: She resides in a custodial facility. She is dependent in activities of daily living. No active tobacco or alcohol use. SYSTEMS REVIEW: Neurologic: Positive for dementia. No loss of consciousness, seizure activity, or focal weakness. Cardiac: Negative chest pain or palpitations. Respiratory: Negative cough or sputum production. Gastrointestinal: As per HPI. Genitourinary: Negative for urinary tract infection. LABORATORY DATA: White count on admission 20,000; neutrophils 86, lymphocytes 6, monocytes 4; hematocrit 35.1; platelets 245. Creatinine 1.7. Liver enzymes are within normal limits. Urinalysis: White cells 14. Chest x-ray: No acute infiltrate. Sonogram of the abdomen and pelvis is pending. PHYSICAL EXAMINATION: General: She is awake. She is confused. She is calling out. Vital Signs: Temperature 99.5; blood pressure 131/65; pulse 101, regular; respirations 16 per minute. HEENT: Sclerae anicteric. Heart: Sounds S1, S2. Lungs: Clear. Abdomen: Soft. No tenderness elicited. No right upper quadrant tenderness to palpation. No mass, rebound, or rigidity. Extremities: Negative for edema. IMPRESSION: 1. Acute cholecystitis. 2. Rule out sepsis secondary to cholecystitis. 3. Gastrointestinal bleeding. 4. PENICILLIN allergy. Obtain blood cultures. Empiric antibiotic coverage of biliary tract pathogens in this PENICILLIN-allergic patient with ceftriaxone and Flagyl. Surgical evaluation and followup. Will follow. Thank you for the kind referral. PITA VILLASEÑOR M.D. [id number]
--- NOTE | 2019-10-20 22:46 | CONS ---
DATE OF CONSULTATION: GASTROENTEROLOGY CONSULTATION HISTORY OF PRESENT ILLNESS: The patient is an 84-year-old female from the [facility] facility. Past medical history is significant for COPD, hypertension, dementia at baseline, peptic ulcer disease, hemorrhoids. She was admitted to the hospital after being found at the halfway facility with bloody stool in her bed, no melena. She is an extremely poor historian secondary to her underlying dementia and does not respond to any questions. PAST MEDICAL AND SURGICAL HISTORY: As listed in the HPI. ALLERGIES: PENICILLIN. SOCIAL HISTORY: No drinking, smoking, drug abuse. Lives at a facility. PHYSICAL EXAMINATION: Vital Signs: Temperature 98; pulse 86; blood pressure 139/60; respiratory rate 18; pulse oximetry 95% on room air. General: No acute distress. HEENT: Anicteric sclerae. CARDIOVASCULAR: S1, S2 regular rate and rhythm. LUNGS: Clear bilaterally to auscultation. ABDOMEN: Soft. Patient is a bit agitated and does not comply with full exam. EXTREMITIES: Do not appear to have edema. LABORATORY: White blood cell count 20 on admission, currently 16; hemoglobin 9.7, hematocrit 30, MCV 89; platelet count 226. INR 1.6. Sodium 144, potassium 3.7; BUN 81, creatinine 1.7, glucose 144. Lactic acid 1.8. Iron 26. Total bilirubin 0.5, AST 21, ALT 12, alkaline phosphatase 77. Troponin is 0.08, currently is 0.09. Cultures are pending. She had an abdomen and pelvic CT scan without contrast, which revealed gallbladder distention and thickening of the wall, cholelithiasis, mild CBD dilation, diverticulum in the duodenal sweep, pancreatic head calcifications and small susana hepatis lymph nodes, maybe due to prior granulomatous disease, and small bilateral adenomas. Also with a lipoma in the mid ascending colon. She had an ultrasound; patient did not cooperate. IMPRESSION: 1. Anemia and question of bloody stool while at the facility. There was no sign of an overt gastrointestinal bleed at this time. She is hemodynamically stable. 2. Abnormal Biliary imaging / leukocytosis r/o acute cholecystitis RECOMMENDATIONS: Would recommend conservative management, including serial CBCs q.12 while hospitalized. If she develops diarrhea, stool culture, C. difficile. Avoid NSAID and start her on PPI 40 mg p.o. daily. Imaging findings significant for thickening of the gallbladder and cholelithiasis. Ultrasound nondiagnostic secondary to patient not cooperating. Present findings are suspicious for biliary disease considering she has a leukocytosis also. Recommend HIDA scan and empiric antibiotics, Levaquin and Flagyl therapy; n.p.o. except chips, IV fluid and surgery evaluation. Panculture. DO STU MORALES/[id number] MTDD
[2019-10-20] MEDS ORDERED: ATENOLOL 25 MG TABLET (FP) PO ONE (22:56)
[2019-10-20] MEDS ORDERED: LORazepam 2 MG/ML SDV VIAL ONE (23:28)
[2019-10-21] MEDS: DEXTROSE 5%-0.45% SALINE 1,000 ML IV SCH (05:49)
--- NOTE | 2019-10-21 07:43 | PN.GI ---
GI Progress Note Subjective: no report of GI bleed / pt confused , not cooperative - Objective Vital Signs: Vital Signs Temperature 97.8 F 10/21/19 06:00 Pulse Rate 107 H 10/21/19 06:00 Respiratory Rate 18 10/21/19 06:00 Blood Pressure 148/73 10/21/19 06:00 O2 Sat by Pulse Oximetry (%) 95 10/21/19 06:00 Constitutional: No Distress Respiratory: Yes: WNL, Regular, CTA Bilaterally Gastrointestinal Inspection: Yes: WNL ...Auscultate: Yes: Normoactive Bowel Sounds Edema: No Labs: CBC, BMP 10/20/19 14:48 10/20/19 06:13 INR, PTT INR 1.26 (0.83-1.09) H 10/19/19 17:35 Problem List - Problems (1) Acute cholecystitis Assessment/Plan: - f/u HIDA scan - c/w abx - npo / ivf's - serial h/h q12 - ppi infusion - surgery f/u for suspected acute cholecystitis Code(s): K81.0 - ACUTE CHOLECYSTITIS (2) Anemia Code(s): D64.9 - ANEMIA, UNSPECIFIED (3) GI bleed Code(s): K92.2 - GASTROINTESTINAL HEMORRHAGE, UNSPECIFIED
[2019-10-21 08:22] LABS: HEMATOCRIT 26.2 % (32.4-45.2); HEMOGLOBIN 8.4 GM/dL (10.7-15.3); LYMPH % 4.9 % (8-40); MCH 28.5 pg (25.7-33.7); MCHC 32.2 g/dl (32.0-36.0); MEAN CELL VOLUME 88.5 fl (80-96); MEAN PLT VOLUME 9.6 fl (7.5-11.1); MONO % 4.2 % (3.8-10.2); NEUT % 90.9 % (42.8-82.8); PLATELET COUNT 276 K/MM3 (134-434); RBC 2.96 M/mm3 (3.60-5.2); RDW 15.9 % (11.6-15.6); WHITE BLOOD COUNT 14.8 K/mm3 (4.0-10.0)
[2019-10-21 08:55] LABS: ALBUMIN 2.4 g/dl (3.4-5.0); BILIRUBIN,TOTAL 0.5 mg/dL (0.2-1); CALCIUM 9.4 mg/dL (8.5-10.1); CREATININE 1.5 mg/dL (0.55-1.3); POTASSIUM 3.1 mmol/L (3.5-5.1); TOT PROT 5.7 g/dl (6.4-8.2)
[2019-10-21] MEDS ORDERED: DEXTROSE 5%-WATER 100 ML IVPB ONE (09:53)
[2019-10-21] MEDS: CEFTRIAXONE 2 GM in DEXTROSE 5%-WATER 100 ML IVPB SCH (10:11)
--- NOTE | 2019-10-21 10:26 | CON.NEURO ---
Consult Consult Specialty:: NEUROLOGY-YULISA MARQUEZ - History of Present Illness History of Present Illness: This is a 84 y/o female from [facility] with a significant past medical history of COPD, HTN, Dementia (at baseline), PUD, Hemorrhoids. Who presents to the ED via ambulance for possible GI bleed. HPI is limited secondary to patients Dementia. As per the usp, the patient was found in a pool of her urine and bloody stool in bed. +Afib with rvr.+ cholelithiasis?? infection. Pt. has been agitated, encephalopathic. ER course was notable for: (1) CTAP- gallbladder overdistention, GBW thickening, pericholecystic soft tissue stranding- findings suggestive of acute cholecystitis, cholelithiasis (2) BUN 95 (3) Cr 2.0 Recent Travel: None PAST MEDICAL HISTORY: COPD HTN Dementia PUD Hemorrhoids - Alcohol/Substance Use Hx Alcohol Use: No - Smoking History Smoking history: Unknown if ever smoked Have you smoked in the past 12 months: No Aproximately how many cigarettes per day: 20 Home Medications - Allergies Allergies/Adverse Reactions: Allergies Allergy/AdvReac Type Severity Reaction Status Date / Time Penicillins Allergy Rash Verified 06/10/17 16:48 Pollen Allergy Mild Uncoded 06/10/17 16:48 - Home Medications Home Medications: Ambulatory Orders Acetaminophen [Tylenol -] 500 mg PO Q8H PRN 10/19/19 Atenolol [Tenormin -] 12.5 mg PO DAILY 10/19/19 Escitalopram Oxalate [Lexapro -] 20 mg PO DAILY 10/19/19 Hydrocodone/Acetaminophen [Hydrocodone-Acetamin 10-300 mg] 1 each PO BID PRN 0 10/19/19 Lidocaine 4% Topical [Xylocaine 4% Topical] 1 applic MM DAILY 10/19/19 Melatonin 3 mg PO HS 10/19/19 Sennosides [Senna] 2 tab PO HS 10/19/19 Physical Exam-Neuro Vital Signs: Vital Signs Temperature 99.3 F 10/21/19 09:05 Pulse Rate 104 H 10/21/19 09:05 Respiratory Rate 20 10/21/19 09:05 Blood Pressure 130/67 10/21/19 09:05 O2 Sat by Pulse Oximetry (%) 97 10/21/19 09:05 Labs: CBC, BMP 10/21/19 07:30 10/21/19 07:30 INR, PTT INR 1.26 (0.83-1.09) H 10/19/19 17:35 - Neuro Exam Level Of Consciousness: Yes: Alert (Screaming spontaneously, 2/2 severe dementia does not comprehend/answer questions) Speech: Other (loud? impaired comprehension) Dominant Hand: Right Mini Mental Exam: Inattentive, picking at bed clothes-delirious. DTR's: 0 Left Achilles, 0 Right Achilles, 1+ Left Bicep, 1+ Right Bicep, 1+ Left Tricep, 1+ Right Tricep, 1+ Left Brachioradialis, 1+ Right Brachioradialis Babinski: Present (+bilat upgoing toes) Response to light touch: Normal Response to pain prick: Normal (unable to terst other sensory modalities) Motor Strength: 3/5: Right Leg, 4/5: Left Arm, Right Arm, Left Leg (moves all 4 ext. equally to pain except RLE-3/5 movement to pain) Gait: Other (unable to test) Assessment/Plan Pt. is delirious, encephalopathic with underlying dementia, likely etiology infection. She is not moving her right leg as vigorously as she is moving left?? preexisting weakness. Suggest: Fluphenazine 1mg po(or i/m if not able to take orally),tid x 48 hours to target agitation. Can use Ativan prn, 0.5mg q8rs. CT head without contrast when able to go for it. Thank you, Michelle Marcelino MD
--- NOTE | 2019-10-21 11:20 | PN ---
Progress Note, Physician History of Present Illness: CONFUSED SUPINE IN BED NO C/O ABDOMINAL PAIN AFEBRILE WBC IMPROVED - Current Medication List Current Medications: Active Medications Fluphenazine HCl (Prolixin) 1 mg PO TID TING Dextrose/Sodium Chloride (D5-1/2ns -) 1,000 mls @ 42 mls/hr IV ASDIR TING Last Admin: 10/21/19 05:49 Dose: 42 mls/hr Documented by: Metronidazole (Flagyl 500mg Premixed Ivpb -) 500 mg in 100 mls @ 100 mls/hr IVPB Q8H-IV TING Last Admin: 10/21/19 10:11 Dose: 100 mls/hr Documented by: Ceftriaxone Sodium 2 gm/ (Dextrose) 100 mls @ 100 mls/hr IVPB DAILY TING; Protocol Last Admin: 10/21/19 10:11 Dose: 100 mls/hr Documented by: - Objective Vital Signs: Vital Signs Temperature 99.3 F 10/21/19 09:05 Pulse Rate 104 H 10/21/19 09:05 Respiratory Rate 20 10/21/19 09:05 Blood Pressure 130/67 10/21/19 09:05 O2 Sat by Pulse Oximetry (%) 97 10/21/19 09:05 Constitutional: Yes: No Distress Eyes: Yes: Conjunctiva Clear Cardiovascular: Yes: Regular Rate and Rhythm, S1, S2 Respiratory: Yes: Diminished Gastrointestinal: Yes: Normal Bowel Sounds, Soft, Abdomen, Obese. No: Te nderness Labs: CBC, BMP 10/21/19 07:30 10/21/19 07:30 INR, PTT INR 1.26 (0.83-1.09) H 10/19/19 17:35 Assessment/Plan ACUTE CHOLECYSTITIS R/O SEPSIS SECONDARY TO GB SOURCE GI BLEED PCN ALLERGY CONTINUE EMPIRIC CEFTRIAXONE/ FLAGYL
--- NOTE | 2019-10-21 11:30 | PN ---
Progress Note, Physician - Current Medication List Current Medications: Active Medications Fluphenazine HCl (Prolixin) 1 mg PO TID TING Dextrose/Sodium Chloride (D5-1/2ns -) 1,000 mls @ 42 mls/hr IV ASDIR TING Last Admin: 10/21/19 05:49 Dose: 42 mls/hr Documented by: Metronidazole (Flagyl 500mg Premixed Ivpb -) 500 mg in 100 mls @ 100 mls/hr IVPB Q8H-IV TING Last Admin: 10/21/19 10:11 Dose: 100 mls/hr Documented by: Ceftriaxone Sodium 2 gm/ (Dextrose) 100 mls @ 100 mls/hr IVPB DAILY TING; Protocol Last Admin: 10/21/19 10:11 Dose: 100 mls/hr Documented by: - Objective Vital Signs: Vital Signs Temperature 99.3 F 10/21/19 09:05 Pulse Rate 104 H 10/21/19 09:05 Respiratory Rate 20 10/21/19 09:05 Blood Pressure 130/67 10/21/19 09:05 O2 Sat by Pulse Oximetry (%) 97 10/21/19 09:05 Cardiovascular: Yes: S1, S2 Respiratory: Yes: Regular, CTA Bilaterally Gastrointestinal: Yes: Normal Bowel Sounds, Soft Neurological: Yes: Confusion Labs: CBC, BMP 10/21/19 07:30 10/21/19 07:30 INR, PTT INR 1.26 (0.83-1.09) H 10/19/19 17:35 Problem List - Problems (1) Anemia Assessment/Plan: IRON STUDIES FOLLOW LABS GI CONSULT Code(s): D64.9 - ANEMIA, UNSPECIFIED (2) Elevated troponin I level Code(s): R79.89 - OTHER SPECIFIED ABNORMAL FINDINGS OF BLOOD CHEMISTRY (3) Acute cholecystitis Assessment/Plan: IV ABX SURGICAL AND ID CONSULTS CULTURES Code(s): K81.0 - ACUTE CHOLECYSTITIS (4) GI bleed Assessment/Plan: FOLLOW LABS GI CONSULT Code(s): K92.2 - GASTROINTESTINAL HEMORRHAGE, UNSPECIFIED (5) Altered mental status Assessment/Plan: MAYBE DUE TO INFECTION NEURO CONSULT NOTED Code(s): R41.82 - ALTERED MENTAL STATUS, UNSPECIFIED Qualifiers: Altered mental status type: disorientation Qualified Code(s): R41.0 - Diso rientation, unspecified (6) Dementia Code(s): F03.90 - UNSPECIFIED DEMENTIA WITHOUT BEHAVIORAL DISTURBANCE Qualifiers: Dementia type: Alzheimer's disease Alzheimer's disease onset: unspecified onset Dementia behavioral disturbance: without behavioral disturbance Qualified Code(s): G30.9 - Alzheimer's disease, unspecified; F02.80 - Dementia in other diseases classified elsewhere without behavioral disturbance
[2019-10-21] MEDS ORDERED: LORazepam 2 MG/ML SDV VIAL IM ONE (16:20)
[2019-10-21] MEDS ORDERED: PT OWN MED DRAWER 7, Y5N ONE (21:03)
[2019-10-22] MEDS: DEXTROSE 5%-0.45% SALINE 1,000 ML IV SCH ×2 (01:57)
[2019-10-22] MEDS ORDERED: PT OWN MED DRAWER 7, Y5N ONE ×8 (07:08→21:24)
[2019-10-22 07:42] LABS: BASO % 0.1 % (0-2.0); HEMATOCRIT 24.9 % (32.4-45.2); HEMOGLOBIN 7.8 GM/dL (10.7-15.3); LYMPH % 8.3 % (8-40); MCH 28.4 pg (25.7-33.7); MCHC 31.3 g/dl (32.0-36.0); MEAN CELL VOLUME 90.8 fl (80-96); MEAN PLT VOLUME 8.9 fl (7.5-11.1); MONO % 6.1 % (3.8-10.2); NEUT % 85.5 % (42.8-82.8); PLATELET COUNT 307 K/MM3 (134-434); RBC 2.74 M/mm3 (3.60-5.2); RDW 16.1 % (11.6-15.6); WHITE BLOOD COUNT 13.5 K/mm3 (4.0-10.0)
[2019-10-22 08:11] LABS: ALBUMIN 2.2 g/dl (3.4-5.0); BILIRUBIN,TOTAL 0.5 mg/dL (0.2-1); CALCIUM 8.9 mg/dL (8.5-10.1); CREATININE 1.6 mg/dL (0.55-1.3); TOT PROT 5.3 g/dl (6.4-8.2)
[2019-10-22 08:21] LABS: POTASSIUM 2.8 mmol/L (3.5-5.1)
[2019-10-22] MEDS ORDERED: DEXTROSE 5%-WATER 100 ML IVPB ONE (08:26)
--- NOTE | 2019-10-22 08:42 | PN ---
Progress Note, Physician - Current Medication List Current Medications: Active Medications Fluphenazine HCl (Prolixin) 1 mg PO TID TING Last Admin: 10/22/19 05:22 Dose: 1 mg Documented by: Metronidazole (Flagyl 500mg Premixed Ivpb -) 500 mg in 100 mls @ 100 mls/hr IVPB Q8H-IV TING Last Admin: 10/22/19 01:57 Dose: 100 mls/hr Documented by: Ceftriaxone Sodium 2 gm/ (Dextrose) 100 mls @ 100 mls/hr IVPB DAILY TING; Protocol Last Admin: 10/21/19 10:11 Dose: 100 mls/hr Documented by: - Objective Vital Signs: Vital Signs Temperature 97.6 F 10/22/19 05:30 Pulse Rate 75 10/22/19 05:30 Respiratory Rate 16 10/22/19 05:30 Blood Pressure 125/56 L 10/22/19 05:30 O2 Sat by Pulse Oximetry (%) 97 10/22/19 05:30 Cardiovascular: Yes: S1, S2 Respiratory: Yes: Regular, CTA Bilaterally Gastrointestinal: Yes: Normal Bowel Sounds, Soft, Tenderness (questionable) Labs: CBC, BMP 10/22/19 06:57 10/22/19 06:57 INR, PTT INR 1.26 (0.83-1.09) H 10/19/19 17:35 Problem List - Problems (1) Anemia Assessment/Plan: IRON STUDIES FOLLOW LABS GI CONSULT NOTED Code(s): D64.9 - ANEMIA, UNSPECIFIED (2) Elevated troponin I level Code(s): R79.89 - OTHER SPECIFIED ABNORMAL FINDINGS OF BLOOD CHEMISTRY (3) Acute cholecystitis Assessment/Plan: IV ABX SURGICAL AND ID CONSULTS CULTURES AWAIT HIDA SCAN Code(s): K81.0 - ACUTE CHOLECYSTITIS (4) GI bleed Assessment/Plan: FOLLOW LABS GI CONSULT Code(s): K92.2 - GASTROINTESTINAL HEMORRHAGE, UNSPECIFIED (5) Altered mental status Assessment/Plan: MAYBE DUE TO INFECTION NEURO CONSULT NOTED Code(s): R41.82 - ALTERED MENTAL STATUS, UNSPECIFIED Qualifiers: Altered mental status type: disorientation Qualified Code(s): R41.0 - Disorientation, unspecified (6) Dementia Code(s): F03.90 - UNSPECIFIED DEMENTIA WITHOUT BEHAVIORAL DISTURBANCE Qualifiers: Dementia type: Alzheimer's disease Alzheimer's disease onset: unspecified onset Dementia behavioral disturbance: without behavioral disturbance Qualified Code(s): G30.9 - Alzheimer's disease, unspecified; F02.80 - Dementia in other diseases classified elsewhere without behavioral disturbance (7) Hypokalemia Assessment/Plan: REPLACE Code(s): E87.6 - HYPOKALEMIA
--- NOTE | 2019-10-22 09:21 | EKG ---
Test Reason : Blood Pressure : / mmHG Vent. Rate : 172 BPM Atrial Rate : 375 BPM P-R Int : 000 ms QRS Dur : 078 ms QT Int : 274 ms P-R-T Axes : 000 076 -33 degrees QTc Int : 463 ms POOR DATA QUALITY, INTERPRETATION MAY BE ADVERSELY AFFECTED ATRIAL FIBRILLATION WITH RAPID VENTRICULAR RESPONSE WITH PREMATURE VENTRICULAR OR ABERRANTLY CONDUCTED COMPLEXES ABNORMAL ECG WHEN COMPARED WITH ECG OF 19-OCT-2019 23:36, ATRIAL FIBRILLATION HAS REPLACED SINUS RHYTHM T WAVE INVERSION NOW EVIDENT IN INFERIOR LEADS NONSPECIFIC T WAVE ABNORMALITY, IMPROVED IN LATERAL LEADS Confirmed by Shira Cotto ([id number]) on 10/22/2019 9:20:48 AM Referred By: ALINA RODNEY Confirmed By:Shira Cotto
--- NOTE | 2019-10-22 09:25 | EKG ---
Test Reason : Blood Pressure : / mmHG Vent. Rate : 120 BPM Atrial Rate : 120 BPM P-R Int : 114 ms QRS Dur : 070 ms QT Int : 342 ms P-R-T Axes : 101 085 063 degrees QTc Int : 483 ms POOR DATA QUALITY, INTERPRETATION MAY BE ADVERSELY AFFECTED SINUS TACHYCARDIA WITH FREQUENT PREMATURE VENTRICULAR COMPLEXES NONSPECIFIC ST AND T WAVE ABNORMALITY ABNORMAL ECG WHEN COMPARED WITH ECG OF 10-JUN-2017 14:41, Repeat ECG Confirmed by Shira Cotto ([id number]) on 10/22/2019 9:25:04 AM Referred By: Confirmed By:Shira Cotto
[2019-10-22] MEDS: KCL 10 MEQ IVPB 10 MEQ/100 ML INFUS.BAG IVPB SCH ×3 (09:50→12:31)
--- NOTE | 2019-10-22 11:18 | PN ---
Progress Note, Physician History of Present Illness: CONFUSED IN RESTRAINTS IN BED NO C/O ABDOMINAL PAIN NO REPORTED VOMITING TOLERATING CEPHALOSPORIN AFEBRILE WBC IMPROVED AZOTEMIA IMPROVED LFTS WNL - Current Medication List Current Medications: Active Medications Fluphenazine HCl (Prolixin) 1 mg PO TID TING Last Admin: 10/22/19 05:22 Dose: 1 mg Documented by: Metronidazole (Flagyl 500mg Premixed Ivpb -) 500 mg in 100 mls @ 100 mls/hr IVPB Q8H-IV TING Last Admin: 10/22/19 01:57 Dose: 100 mls/hr Documented by: Ceftriaxone Sodium 2 gm/ (Dextrose) 100 mls @ 100 mls/hr IVPB DAILY TING; Protoc ol Last Admin: 10/21/19 10:11 Dose: 100 mls/hr Documented by: Potassium Chloride (Potassium Chloride 10 Meq Premix Ivpb -) 10 meq in 100 mls @ 100 mls/hr IVPB Q60M TING Stop: 10/22/19 11:44 Last Admin: 10/22/19 11:03 Dose: 100 mls/hr Documented by: Dextrose/Sodium Chloride (D5-1/2ns+40 Meq Kcl -) 40 meq in 1,000 mls @ 75 mls/hr IV ASDIR TING - Objective Vital Signs: Vital Signs Temperature 97.7 F 10/22/19 10:00 Pulse Rate 92 H 10/22/19 10:00 Respiratory Rate 18 10/22/19 10:00 Blood Pressure 129/69 10/22/19 10:00 O2 Sat by Pulse Oximetry (%) 96 10/22/19 10:00 Constitutional: Yes: No Distress Eyes: Yes: Conjunctiva Clear Cardiovascular: Yes: Regular Rate and Rhythm, S1, S2 Respiratory: Yes: Diminished Gastrointestinal: Yes: Normal Bowel Sounds, Soft, Abdomen, Obese. No: Tenderness Edema: No Labs: CBC, BMP 10/22/19 06:57 10/22/19 06:57 INR, PTT INR 1.26 (0.83-1.09) H 10/19/19 17:35 Assessment/Plan R/O ACUTE CHOLECYSTITIS POSSIBLE SEPSIS SECONDARY TO GB SOURCE GI BLEED PCN ALLERGY CONTINUE EMPIRIC CEFTRIAXONE/ FLAGYL
[2019-10-22 11:40] LABS: MAGNESIUM 2.2 mg/dL (1.8-2.4)
[2019-10-22] MEDS ORDERED: D5-1/2NS+40 MEQ KCL - 40 MEQ/1,000 ML INFUS.BAG IV SCH (11:45)
--- NOTE | 2019-10-22 13:12 | CON.NEP ---
Consult Consult Specialty:: Nephrology Referred by:: Dr. Dugan Reason for Consultation:: Acute kidney injury vs. CKD - History of Present Illness Chief Complaint: possible GI bleed History of Present Illness: This is a 84 year old woman with history of COPD, hypertension, Dementia, peptic ulcer disease and hemmorrhoids who presented with suspected GI bleed and found to have Cr of 2. Pt seen and examined at the bedside. She is awake and alerted but only oriented to self. She reports abdominal pain but no nausea, vomiting or diarrhea. Denies any flank pain. Reports anorexia. HPI limited by dementia. - History Source History Provided By: Patient Limitations to Obtaining History: Dementia - Alcohol/Substance Use Hx Alcohol Use: No - Smoking History Smoking history: Unknown if ever smoked Have you smoked in the past 12 months: No Aproximately how many cigarettes per day: 20 Home Medications - Allergies Allergies/Adverse Reactions: Allergies Allergy/AdvReac Type Severity Reaction Status Date / Time Penicillins Allergy Rash Verified 06/10/17 16:48 Pollen Allergy Mild Uncoded 06/10/17 16:48 - Home Medications Home Medications: Ambulatory Orders Acetaminophen [Tylenol -] 500 mg PO Q8H PRN 10/19/19 Atenolol [Tenormin -] 12.5 mg PO DAILY 10/19/19 Escitalopram Oxalate [Lexapro -] 20 mg PO DAILY 10/19/19 Hydrocodone/Acetaminophen [Hydrocodone-Acetamin 10-300 mg] 1 each PO BID PRN 10/19/19 Lidocaine 4% Topical [Xylocaine 4% Topical] 1 applic MM DAILY 10/19/19 Melatonin 3 mg PO HS 10/19/19 Sennosides [Senna] 2 tab PO HS 10/19/19 Family Medical History Family History: Unable to Obtain Review of Systems - Review of Systems Constitutional: reports: No Symptoms Eyes: reports: No Symptoms HENT: reports: No Symptoms Neck: reports: No Symptoms Cardiovascular: reports: No Symptoms Respiratory: reports: No Symptoms Gastrointestinal: reports: Abdominal Pain Genitourinary: reports: No Symptoms Musculoskeletal: reports: No Symptoms Nephrology Consult - Height Height: 5 ft 9 in - Weight Weight: 77.111 kg - BMI Body Mass Index (BMI): 25.1 - Lab Results CBC,BMP: CBC, BMP 10/22/19 06:57 10/22/19 06:57 Anion Gap: Anion Gap Anion Gap 10 MMOL/L (8-16) 10/22/19 06:57 - Imaging Chest X-ray: Report Reviewed, Image Reviewed - Physical Examination Vital Signs: Vital Signs Temperature 97.7 F 10/22/19 10:00 Pulse Rate 92 H 10/22/19 10:00 Respiratory Rate 18 10/22/19 10:00 Blood Pressure 129/69 10/22/19 10:00 O2 Sat by Pulse Oximetry (%) 96 10/22/19 10:00 Constitutional: Yes: No Distress, Anxious HENT: Yes: Atraumatic Neck: Yes: Supple Cardiovascular: Yes: Regular Rate and Rhythm Respiratory: Yes: Regular, CTA Bilaterally. No: SOB Gastrointestinal: Yes: Normal Bowel Sounds, Soft Renal/: No: Bladder Distention, CVA Tenderness - Left, CVA Tenderness - Right Edema: No Neurological: Yes: Alert. No: Oriented Assessment/Plan 84 year old woman with history of COPD, hypertension, Dementia, peptic ulcer disease and hemmorrhoids who presented with suspected GI bleed and found to have Cr of 2. 1. Acute on chronic renal insufficiency 2. CKD 3. Suspected GI Bleed 4. Acute on chronic anemia 5. Hypernatremia 6. Leukocytosis 7. Hypokalemia Renal function is improving but not within normal limits. There is no overt hyperkalemia or acidosis Serum sodium is trending up with isotonic saline, agree with hypotonic salie, will increase rate to 100cc per hour. Repeat BMP this evening Etiology of hyopkalemia unclear, Gi losses or dilution in setting of poor oral intake. s/p supplementation this AM, repeat levels in the evening Mg is within normal limits pt is currently NPO antibiotics as per primary team Thank you Will follow Raymond Holden DO
[2019-10-22] MEDS: CEFTRIAXONE 2 GM in DEXTROSE 5%-WATER 100 ML IVPB SCH (14:33)
[2019-10-22] MEDS: D5-1/2NS+40 MEQ KCL - 40 MEQ/1,000 ML INFUS.BAG IV SCH (15:25)
--- NOTE | 2019-10-22 17:05 | PN.GI ---
GI Progress Note Subjective: No acute events Noted worsening Hgb HIDA not performed as of yet - Objective Vital Signs: Vital Signs Temperature 98.2 F 10/22/19 14:00 Pulse Rate 93 H 10/22/19 14:00 Respiratory Rate 18 10/22/19 14:00 Blood Pressure 143/60 10/22/19 14:00 O2 Sat by Pulse Oximetry (%) 96 10/22/19 14:00 Constitutional: Calm Eyes: No: Sclera Icterus Cardiovascular: Yes: Regular Rate and Rhythm Respiratory: Yes: Diminished (at bases bialterally) Gastrointestinal Inspection: No: Distention ...Auscultate: Yes: Normoactive Bowel Sounds ...Palpate: Yes: Soft, Tenderness (Mild TTP mid upper abdomen) ...Percussion: No: Tympanitic ...Rectal Exam: Yes: Other (+ melena) Edema: No (No LE edema) Neurological: Yes: Alert Labs: CBC, BMP 10/22/19 06:57 10/22/19 06:57 INR, PTT INR 1.26 (0.83-1.09) H 10/19/19 17:35 Problem List - Problems (1) Anemia Assessment/Plan: + melena on exam with worsening anemia Discussed with patient's nephew / HCP. Discussed plan for EGD with him to assess for source of bleeding vs. conservative measures of PPI infusion and monitoring. Discussed potential risks of the procedure like but not limited to bleeding, perforation requiring to surgery to repair all of which could be potentially life threatening. Discussed possible need for endotracheal intubation. He Has agreed to the upper endoscopy For now: NPO except meds IV Hydration Ordered protoinix 80mg infusion followed by 8mg/hr Ordered repeat CBC for now Keep Hgb >7 Repletion of lytes per PMD Code(s): D64.9 - ANEMIA, UNSPECIFIED (2) Thickening of wall of gallbladder Assessment/Plan: Awaiting HIDA Surgery following On Abx Code(s): K82.8 - OTHER SPECIFIED DISEASES OF GALLBLADDER
[2019-10-22] MEDS ORDERED: PANTOPRAZOLE SODIUM 40 MG VIAL IVPUSH ONE (17:12)
[2019-10-22] MEDS: PANTOPRAZOLE SODIUM 80 MG in SODIUM CHLORIDE 100 ML IVPB SCH (18:47)
[2019-10-22 19:03] LABS: BASO % 0.1 % (0-2.0); HEMATOCRIT 25.8 % (32.4-45.2); HEMOGLOBIN 7.9 GM/dL (10.7-15.3); LYMPH % 8.3 % (8-40); MCH 28.3 pg (25.7-33.7); MCHC 30.6 g/dl (32.0-36.0); MEAN CELL VOLUME 92.6 fl (80-96); MEAN PLT VOLUME 8.7 fl (7.5-11.1); MONO % 7.3 % (3.8-10.2); NEUT % 84.3 % (42.8-82.8); PLATELET COUNT 322 K/MM3 (134-434); RBC 2.79 M/mm3 (3.60-5.2); RDW 16.4 % (11.6-15.6); WHITE BLOOD COUNT 16.5 K/mm3 (4.0-10.0)
[2019-10-22 19:46] LABS: PLATELET ESTIMATE ADEQUATE
[2019-10-23] MEDS: PANTOPRAZOLE SODIUM 80 MG in SODIUM CHLORIDE 100 ML IVPB SCH ×2 (02:56→15:12)
[2019-10-23 06:48] LABS: BASO % 0.1 % (0-2.0); EOS % 0.1 % (0-4.5); HEMATOCRIT 23.4 % (32.4-45.2); HEMOGLOBIN 7.3 GM/dL (10.7-15.3); MCH 28.3 pg (25.7-33.7); MCHC 31.1 g/dl (32.0-36.0); MEAN CELL VOLUME 91.1 fl (80-96); MEAN PLT VOLUME 8.3 fl (7.5-11.1); MONO % 10.3 % (3.8-10.2); NEUT % 79.5 % (42.8-82.8); PLATELET COUNT 315 K/MM3 (134-434); RBC 2.57 M/mm3 (3.60-5.2); RDW 16.1 % (11.6-15.6); WHITE BLOOD COUNT 14.9 K/mm3 (4.0-10.0)
[2019-10-23 07:23] LABS: ALBUMIN 2.2 g/dl (3.4-5.0); BILIRUBIN,TOTAL 0.2 mg/dL (0.2-1); BLOOD UREA NITROGEN 53.1 mg/dL (7-18); CALCIUM 8.5 mg/dL (8.5-10.1); CREATININE 2.1 mg/dL (0.55-1.3); MAGNESIUM 2.2 mg/dL (1.8-2.4); TOT PROT 5.1 g/dl (6.4-8.2)
[2019-10-23] MEDS ORDERED: DEXTROSE 5%-WATER 100 ML IVPB ONE (08:21)
[2019-10-23] MEDS: CEFTRIAXONE 2 GM in DEXTROSE 5%-WATER 100 ML IVPB SCH (09:05)
--- NOTE | 2019-10-23 09:27 | PN ---
Progress Note, Physician - Current Medication List Current Medications: Active Medications Fluphenazine HCl (Prolixin) 1 mg PO TID [facility]ING Last Admin: 10/23/19 06:48 Dose: Not Given Documented by: Metronidazole (Flagyl 500mg Premixed Ivpb -) 500 mg in 100 mls @ 100 mls/hr IVPB Q8H-IV TING Last Admin: 10/23/19 09:19 Dose: 100 mls/hr Documented by: Ceftriaxone Sodium 2 gm/ (Dextrose) 100 mls @ 100 mls/hr IVPB DAILY [facility]; Protocol Last Admin: 10/23/19 09:05 Dose: 100 mls/hr Documented by: Dextrose/Sodium Chloride (D5-1/2ns+40 Meq Kcl -) 40 meq in 1,000 mls @ 100 mls/hr IV ASDIR TING Last Admin: 10/22/19 15:25 Dose: 100 mls/hr Documented by: Pantoprazole Sodium 80 mg/ (Sodium Chloride) 100 mls @ 10 mls/hr IVPB Q10H [facility]ING Stop: 10/25/19 17:13 Last Admin: 10/23/19 02:56 Dose: 10 mls/hr Documented by: - Objective Vital Signs: Vital Signs Temperature 97.9 F 10/23/19 06:00 Pulse Rate 86 10/23/19 06:00 Respiratory Rate 18 10/23/19 06:00 Blood Pressure 134/59 L 10/23/19 06:00 O2 Sat by Pulse Oximetry (%) 100 10/23/19 06:00 Cardiovascular: Yes: S1, S2 Respiratory: Yes: Regular, CTA Bilaterally Gastrointestinal: Yes: Normal Bowel Sounds, Soft Labs: CBC, BMP 10/23/19 06:11 10/23/19 06:11 INR, PTT INR 1.26 (0.83-1.09) H 10/19/19 17:35 Problem List - Problems (1) Anemia Assessment/Plan: IRON STUDIES FOLLOW LABS GI CONSULT NOTED FOR EGD Code(s): D64.9 - ANEMIA, UNSPECIFIED (2) Elevated troponin I level Code(s): R79.89 - OTHER SPECIFIED ABNORMAL FINDINGS OF BLOOD CHEMISTRY (3) Acute cholecystitis Assessment/Plan: IV ABX SURGICAL AND ID CONSULTS CULTURES AWAIT HIDA SCAN PER SURGERY Code(s): K81.0 - ACUTE CHOLECYSTITIS (4) GI bleed Assessment/Plan: FOLLOW LABS GI CONSULT--FOR EGD Code(s): K92.2 - GASTROINTESTINAL HEMORRHAGE, UNSPECIFIED (5) Altered mental status Assessment/Plan: MAYBE DUE TO INFECTION NEURO CONSULT NOTED Code(s): R41.82 - ALTERED MENTAL STATUS, UNSPECIFIED Qualifiers: Altered mental status type: disorientation Qualified Code(s): R41.0 - Disorientation, unspecified (6) Dementia Code(s): F03.90 - UNSPECIFIED DEMENTIA WITHOUT BEHAVIORAL DISTURBANCE Qualifiers: Dementia type: Alzheimer's disease Alzheimer's disease onset: unspecified onset Dementia behavioral disturbance: without behavioral disturbance Qualified Code(s): G30.9 - Alzheimer's disease, unspecified; F02.80 - Dementia in other diseases classified elsewhere without behavioral disturbance (7) Hypokalemia Assessment/Plan: REPLACE MONITOR RENAL Code(s): E87.6 - HYPOKALEMIA (8) Acute kidney injury Assessment/Plan: R/O RETENTION BLADDER SCAN Code(s): N17.9 - ACUTE KIDNEY FAILURE, UNSPECIFIED
--- NOTE | 2019-10-23 15:02 | PN ---
Progress Note, Physician History of Present Illness: LETHARGIC TODAY NO REPORTED VOMITING TOLERATING CEPHALOSPORIN AFEBRILE WBC IMPROVED AZOTEMIA SL WORSE LFTS WNL - Current Medication List Current Medications: Active Medications Fluphenazine HCl (Prolixin) 1 mg PO TID [facility] Last Admin: 10/23/19 06:48 Dose: Not Given Documented by: Metronidazole (Flagyl 500mg Premixed Ivpb -) 500 mg in 100 mls @ 100 mls/hr IVPB Q8H-IV TING Last Admin: 10/23/19 09:19 Dose: 100 mls/hr Documented by: Dextrose/Sodium Chloride (D5-1/2ns+40 Meq Kcl -) 40 meq in 1,000 mls @ 100 mls/hr IV ASDIR [facility] Last Admin: 10/22/19 15:25 Dose: 100 mls/hr Documented by: Pantoprazole Sodium 80 mg/ (Sodium Chloride) 100 mls @ 10 mls/hr IVPB Q10H [facility] Stop: 10/25/19 17:13 Last Admin: 10/23/19 02:56 Dose: 10 mls/hr Documented by: - Objective Vital Signs: Vital Signs Temperature 97.7 F 10/23/19 14:13 Pulse Rate 89 10/23/19 14:13 Respiratory Rate 14 10/23/19 14:13 Blood Pressure 126/66 10/23/19 14:13 O2 Sat by Pulse Oximetry (%) 97 10/23/19 10:00 Constitutional: Yes: No Distress Cardiovascular: Yes: Regular Rate and Rhythm, S1, S2 Respiratory: Yes: Diminished Gastrointestinal: Yes: Normal Bowel Sounds, Soft. No: Tenderness Labs: CBC, BMP 10/23/19 06:11 10/23/19 06:11 INR, PTT INR 1.26 (0.83-1.09) H 10/19/19 17:35 Assessment/Plan R/O ACUTE CHOLECYSTITIS POSSIBLE SEPSIS SECONDARY TO GB SOURCE GI BLEED PCN ALLERGY CONTINUE EMPIRIC CEFTRIAXONE/ FLAGYL
[2019-10-23] MEDS: D5-1/2NS+40 MEQ KCL - 40 MEQ/1,000 ML INFUS.BAG IV SCH (15:11)
--- NOTE | 2019-10-23 15:25 | PN ---
Progress Note (short form) - Note Progress Note: GENERAL SURGERY Awaiting HIDA scan.
[2019-10-23] MEDS ORDERED: SODIUM PHOSPHATE - 30 MM in DEXTROSE 5%-WATER - 500 ML IVPB ONE (15:26)
--- NOTE | 2019-10-23 16:02 | PN ---
Progress Note, Physician History of Present Illness: Seen and examined at the bedside sleeping no distress for endoscopy today noted to have urinary retention this AM, sauceda was inserted - Current Medication List Current Medications: Active Medications Fluphenazine HCl (Prolixin) 1 mg PO TID [facility] Last Admin: 10/23/19 15:11 Dose: 1 mg Documented by: Metronidazole (Flagyl 500mg Premixed Ivpb -) 500 mg in 100 mls @ 100 mls/hr IVPB Q8H-IV [facility] Last Admin: 10/23/19 09:19 Dose: 100 mls/hr Documented by: Dextrose/Sodium Chloride (D5-1/2ns+40 Meq Kcl -) 40 meq in 1,000 mls @ 100 mls/hr IV ASDIR TING Last Admin: 10/23/19 15:11 Dose: Not Given Documented by: Pantoprazole Sodium 80 mg/ (Sodium Chloride) 100 mls @ 10 mls/hr IVPB Q10H [facility] Stop: 10/25/19 17:13 Last Admin: 10/23/19 15:12 Dose: 10 mls/hr Documented by: Ceftriaxone Sodium 1 gm/ (Dextrose) 50 mls @ 100 mls/hr IVPB DAILY [facility]; Protocol Sodium Phosphate 30 mm/ (Dextrose) 510 mls @ 63.75 mls/hr IVPB ONCE ONE Stop: 10/23/19 23:25 - Objective Vital Signs: Vital Signs Temperature 97.7 F 10/23/19 14:13 Pulse Rate 89 10/23/19 14:13 Respiratory Rate 14 10/23/19 14:13 Blood Pressure 126/66 10/23/19 14:13 O2 Sat by Pulse Oximetry (%) 97 10/23/19 10:00 Constitutional: Yes: No Distress, Calm HENT: Yes: Atraumatic Neck: Yes: Supple Cardiovascular: Yes: Regular Rate and Rhythm Respiratory: Yes: Regular Gastrointestinal: Yes: Soft Extremities: No: Cyanosis Edema: No Neurological: Yes: Alert Labs: CBC, BMP 10/23/19 06:11 10/23/19 06:11 INR, PTT INR 1.26 (0.83-1.09) H 10/19/19 17:35 Assessment/Plan 84 year old woman with history of COPD, hypertension, Dementia, peptic ulcer disease and hemmorrhoids who presented with suspected GI bleed and found to have Cr of 2. 1. Acute on chronic renal insufficiency 2. CKD 3. Suspected GI Bleed 4. Acute on chronic anemia 5. Hypernatremia 6. Leukocytosis 7. Hypokalemia Cr trended up overnight likely due to urinary retention sauceda now placed There is no overt hyperkalemia or acidosis Continue 1/2 NS with KCl supplement Phos with IV sodium phosphate pt is currently NPO antibiotics as per primary team s/p PRBC transfusion today For endoscopy today Raymond Holden DO
[2019-10-23] MEDS ORDERED: LIDOCAINE HCL/PF 2% SDV 5ML VIAL ONE (16:40)
[2019-10-23] MEDS ORDERED: ONDANSETRON 4 MG/2 ML VIAL IVPUSH PRN (17:42)
[2019-10-23] MEDS ORDERED: LACTATED RINGERS SOLUTION 1,000 ML IV SCH (17:45)
--- NOTE | 2019-10-23 17:59 | PN ---
Progress Note (short form) - Note Progress Note: EGD complete. Report left in procedural section of physical chart Problem List - Problems (1) Anemia Code(s): D64.9 - ANEMIA, UNSPECIFIED (2) Thickening of wall of gallbladder Code(s): K82.8 - OTHER SPECIFIED DISEASES OF GALLBLADDER
--- NOTE | 2019-10-23 18:28 | PN ---
Progress Note (short form) - Note Progress Note: Reviewed previoius CT scan report. diverticulum noted in duodenal sweep. there was also ? of air in bile duct. will still obtain MRI to evaluate for evidence of communication of gallbladder with duodenum / duodenal diverticulum. Problem List - Problems (1) Anemia Code(s): D64.9 - ANEMIA, UNSPECIFIED (2) Thickening of wall of gallbladder Code(s): K82.8 - OTHER SPECIFIED DISEASES OF GALLBLADDER
[2019-10-23] MEDS ORDERED: PT OWN MED DRAWER 7, Y5N ONE (22:36)
[2019-10-24] MEDS ORDERED: PT OWN MED DRAWER 7, Y5N ONE ×4 (07:14→21:07)
--- NOTE | 2019-10-24 08:09 | PN.GI ---
GI Progress Note Subjective: ONE DARK BM OVERNIGHT; NO FURTHER EPISODES TODAY PER RN. - Objective Vital Signs: Vital Signs Temperature 98.3 F 10/24/19 05:28 Pulse Rate 85 10/24/19 05:28 Respiratory Rate 20 10/24/19 05:28 Blood Pressure 131/64 10/24/19 05:28 O2 Sat by Pulse Oximetry (%) 97 10/24/19 01:20 Constitutional: No Distress, Calm Cardiovascular: Yes: WNL Respiratory: Yes: WNL, Regular, CTA Bilaterally Gastrointestinal Inspection: Yes: WNL ...Auscultate: Yes: Normoactive Bowel Sounds Extremities: Yes: WNL Edema: No Labs: CBC, BMP 10/23/19 06:11 10/23/19 06:11 INR, PTT INR 1.26 (0.83-1.09) H 10/19/19 17:35 Problem List - Problems (1) Acute cholecystitis Assessment/Plan: HIDA scan NEGATIVE FOR CYSTIC DUCT OBSTRUCTION EGD REPORT REVIEWED - ULCERATED DUODENUM/ NARROWING WELL LA GRADE A ESOPHAGITIS F/U MRI TO FURTHER EVALUATE AIR IN THE BILIARY TREE - CLEAR LIQUID DIET ADVANCE IF H/H REMAINS STABLE - serial h/h q12 - ppi infusion TOTAL 72 HOURS THEN SWITCH TO PPI 40 MG IV QD Code(s): K81.0 - ACUTE CHOLECYSTITIS (2) Anemia Code(s): D64.9 - ANEMIA, UNSPECIFIED (3) GI bleed Code(s): K92.2 - GASTROINTESTINAL HEMORRHAGE, UNSPECIFIED
--- NOTE | 2019-10-24 09:12 | PN ---
Progress Note, Physician - Current Medication List Current Medications: Active Medications Fentanyl (Sublimaze Injection -) 25 mcg IVPUSH [id number] PRN PRN Reason: PAIN-PACU ORDER X 4 DOSES ONLY Last Admin: 10/23/19 17:30 Dose: 25 mcg Documented by: Fluphenazine HCl (Prolixin) 1 mg PO TID [facility] Last Admin: 10/24/19 05:46 Dose: Not Given Documented by: Metronidazole (Flagyl 500mg Premixed Ivpb -) 500 mg in 100 mls @ 100 mls/hr IVPB Q8H-IV TING Last Admin: 10/24/19 02:48 Dose: 100 mls/hr Documented by: Dextrose/Sodium Chloride (D5-1/2ns+40 Meq Kcl -) 40 meq in 1,000 mls @ 100 mls/hr IV ASDIR [facility]ING Last Admin: 10/23/19 15:11 Dose: Not Given Documented by: Ceftriaxone Sodium 1 gm/ (Dextrose) 50 mls @ 100 mls/hr IVPB DAILY [facility]; Protocol Ondansetron HCl (Zofran Injection) 4 mg IVPUSH Q6H PRN PRN Reason: NAUSEA AND/OR VOMITING Pantoprazole Sodium (Protonix -) 20 mg PO DAILY [facility] - Objective Vital Signs: Vital Signs Temperature 98.3 F 10/24/19 05:28 Pulse Rate 85 10/24/19 05:28 Respiratory Rate 20 10/24/19 05:28 Blood Pressure 131/64 10/24/19 05:28 O2 Sat by Pulse Oximetry (%) 97 10/24/19 01:20 Cardiovascular: Yes: Tachycardia, S2 Respiratory: Yes: Regular, CTA Bilaterally Gastrointestinal: Yes: Normal Bowel Sounds, Soft Labs: CBC, BMP 10/23/19 06:11 10/23/19 06:11 INR, PTT INR 1.26 (0.83-1.09) H 10/19/19 17:35 Problem List - Problems (1) Anemia Assessment/Plan: IRON STUDIES FOLLOW LABS GI CONSULT NOTED s/p EGD Code(s): D64.9 - ANEMIA, UNSPECIFIED (2) Elevated troponin I level Code(s): R79.89 - OTHER SPECIFIED ABNORMAL FINDINGS OF BLOOD CHEMISTRY (3) Acute cholecystitis Assessment/Plan: IV ABX SURGICAL AND ID CONSULTS CULTURES AWAIT HIDA SCAN PER SURGERY Code(s): K81.0 - ACUTE CHOLECYSTITIS (4) GI bleed Assessment/Plan: FOLLOW LABS GI CONSULT--S/P EGD Code(s): K92.2 - GASTROINTESTINAL HEMORRHAGE, UNSPECIFIED (5) Altered mental status Assessment/Plan: MAYBE DUE TO INFECTION NEURO CONSULT NOTED Code(s): R41.82 - ALTERED MENTAL STATUS, UNSPECIFIED Qualifiers: Altered mental status type: disorientation Qualified Code(s): R41.0 - Disorientation, unspecified (6) Dementia Code(s): F03.90 - UNSPECIFIED DEMENTIA WITHOUT BEHAVIORAL DISTURBANCE Qualifiers: Dementia type: Alzheimer's disease Alzheimer's disease onset: unspecified onset Dementia behavioral disturbance: without behavioral disturbance Qualified Code(s): G30.9 - Alzheimer's disease, unspecified; F02.80 - Dementia in other diseases classified elsewhere without behavioral disturbance (7) Hypokalemia Assessment/Plan: REPLACE MONITOR RENAL Code(s): E87.6 - HYPOKALEMIA (8) Acute kidney injury Assessment/Plan: R/O RETENTION BLADDER SCAN Code(s): N17.9 - ACUTE KIDNEY FAILURE, UNSPECIFIED (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
--- NOTE | 2019-10-24 10:44 | PN ---
Progress Note (short form) - Note Progress Note: Surgery Patient seen and examined on AM rounds with no complaints. She is tolerating her clears and states she has no pain. She is comfortable and denies any CP, SOB, N/ V, fever or chills. Vital Signs Temp 98.0 F 10/24/19 10:00 Pulse 85 10/24/19 10:00 Resp 18 10/24/19 10:00 BP 129/63 10/24/19 10:00 Pulse Ox 98 10/24/19 10:00 Intake & Output 10/23/19 10/23/19 10/24/19 11:59 23:59 11:59 Intake Total 830 820 100 Output Total 950 1950 400 Balance -120 -1130 -300 Intake: IV 800 230 D5-1/2NS+40 MEQ KCL - 40 700 meq In 1,000 ml @ 75 mls/ hr IV ASDIR TING Rx#: [id number] Protonix 10cc/hr 100 80 IVPB 100 100 Oral 30 140 Packed Cells 350 Output: Urine 950 1950 400 Perdomo 1750 400 Void 950 Other: Voiding Method Indwelling Catheter Indwelling Catheter Indwelling Catheter # Unmeasured Voids Void 2 Bowel Movement No Yes # Bowel Movements 1 CBC, BMP 10/23/19 06:11 10/23/19 06:11 PE: A&O, NAD Unlabored resp on RA ABD: Soft, NT, ND with no rebound tenderness, no masses or lesions. B/L LE compartments soft, supple and non-tender <Gerda Ponce - Last Filed: 10/24/19 10:46> - Note Progress Note: Attending Surgeon: I personally saw and examined the patient. My examination reveals a patient with GI bleed and possible biliary tract disease. I discussed the case with the surgical PA and agree with their findings and plan of care with any exceptions as noted. ~ Geoff Templeton MD, FACS <Geoff Templeton - Last Filed: 10/29/19 09:07> Problem List - Problems (1) Abdominal pain Assessment/Plan: Patient with GI bleed and abdominal pain improving awaiting HIDA scan -f/u HIDA scan -replete electrolytes PRN phosphorus 1.0 -pain control - OOB with assist Code(s): R10.9 - UNSPECIFIED ABDOMINAL PAIN <Gerda Ponce - Last Filed: 10/24/19 10:46>
[2019-10-24] MEDS ORDERED: DEXTROSE 5%-WATER - 50 ML IVPB ONE (11:06)
[2019-10-24] MEDS ORDERED: cefTRIAXone SODIUM 1 GM VIAL ONE (11:06)
[2019-10-24] MEDS: PANTOPRAZOLE 20 MG TABLET PO SCH (11:15)
[2019-10-24 11:56] LABS: HEMATOCRIT 27.9 % (32.4-45.2); HEMOGLOBIN 8.9 GM/dL (10.7-15.3); MCH 28.7 pg (25.7-33.7); MCHC 31.8 g/dl (32.0-36.0); MEAN CELL VOLUME 90.5 fl (80-96); MEAN PLT VOLUME 7.9 fl (7.5-11.1); PLATELET COUNT 228 K/MM3 (134-434); RBC 3.09 M/mm3 (3.60-5.2); RDW 16.3 % (11.6-15.6); WHITE BLOOD COUNT 12.9 K/mm3 (4.0-10.0)
[2019-10-24] MEDS: CEFTRIAXONE 1 GM in DEXTROSE 5%-WATER - 50 ML IVPB SCH (12:25)
[2019-10-24 12:26] LABS: MAGNESIUM 1.7 mg/dL (1.8-2.4); PHOSPHOROUS 2.8 mg/dL (2.5-4.9)
[2019-10-24] MEDS: D5-1/2NS+40 MEQ KCL - 40 MEQ/1,000 ML INFUS.BAG IV SCH (15:12)
[2019-10-24 16:26] LABS: CALCIUM 8.4 mg/dL (8.5-10.1); POTASSIUM 3.7 mmol/L (3.5-5.1)
[2019-10-24 16:27] LABS: BLOOD UREA NITROGEN 24.5 mg/dL (7-18)
[2019-10-24] MEDS ORDERED: MAGNESIUM 2GM/50ML STERILE WATER IVPB IVPB ONE (16:46)
--- NOTE | 2019-10-24 17:03 | PN ---
Progress Note, Physician History of Present Illness: Seen and examined at the bedside awake and alert no acute complaints no sob, cp, fever, or chills tolerating diet making urine via sauceda - Current Medication List Current Medications: Active Medications Fentanyl (Sublimaze Injection -) 25 mcg IVPUSH [id number] PRN PRN Reason: PAIN-PACU ORDER X 4 DOSES ONLY Last Admin: 10/23/19 17:30 Dose: 25 mcg Documented by: Fluphenazine HCl (Prolixin) 1 mg PO TID [facility] Last Admin: 10/24/19 15:13 Dose: 1 mg Documented by: Metronidazole (Flagyl 500mg Premixed Ivpb -) 500 mg in 100 mls @ 100 mls/hr IVPB Q8H-IV [facility] Last Admin: 10/24/19 11:11 Dose: 100 mls/hr Documented by: Ceftriaxone Sodium 1 gm/ (Dextrose) 50 mls @ 100 mls/hr IVPB DAILY [facility]; Protocol Last Admin: 10/24/19 12:25 Dose: 100 mls/hr Documented by: Potassium Chloride 40 meq/ (Dextrose) 1,020 mls @ 100 mls/hr IVPB Q10H [facility]ING Ondansetron HCl (Zofran Injection) 4 mg IVPUSH Q6H PRN PRN Reason: NAUSEA AND/OR VOMITING Pantoprazole Sodium (Protonix -) 20 mg PO DAILY [facility] Last Admin: 10/24/19 11:15 Dose: 20 mg Documented by: - Objective Vital Signs: Vital Signs Temperature 98.1 F 10/24/19 14:00 Pulse Rate 107 H 10/24/19 14:00 Respiratory Rate 14 10/24/19 14:00 Blood Pressure 131/86 10/24/19 14:00 O2 Sat by Pulse Oximetry (%) 98 10/24/19 10:00 Constitutional: Yes: No Distress Neck: Yes: Supple Cardiovascular: Yes: Regular Rate and Rhythm Respiratory: Yes: Regular Extremities: No: Cyanosis Edema: No Labs: CBC, BMP 10/24/19 11:47 10/24/19 11:47 INR, PTT INR 1.26 (0.83-1.09) H 10/19/19 17:35 Assessment/Plan 84 year old woman with history of COPD, hypertension, Dementia, peptic ulcer disease and hemmorrhoids who presented with suspected GI bleed and found to have Cr of 2. 1. Acute on chronic renal insufficiency 2. CKD 3. Suspected GI Bleed 4. Acute on chronic anemia 5. Hypernatremia 6. Leukocytosis 7. Hypokalemia Renal function now improved to near normal serum sodium remains elevated Change IVF to D5W with KCl at 100cc per hour check BMP in AM consider trial of void in AM Raymond Holden DO
[2019-10-24] MEDS: POTASSIUM CHLORIDE 40 MEQ in DEXTROSE 5%-WATER - 1,000 ML IVPB SCH (17:41)
[2019-10-25] MEDS: POTASSIUM CHLORIDE 40 MEQ in DEXTROSE 5%-WATER - 1,000 ML IVPB SCH ×3 (03:06→23:00)
[2019-10-25] MEDS ORDERED: PT OWN MED DRAWER 7, Y5N ONE ×5 (05:36→23:24)
[2019-10-25 07:30] LABS: BLOOD UREA NITROGEN 14.2 mg/dL (7-18); CALCIUM 7.7 mg/dL (8.5-10.1); CREATININE 0.7 mg/dL (0.55-1.3); MAGNESIUM 1.8 mg/dL (1.8-2.4); PHOSPHOROUS 1.5 mg/dL (2.5-4.9); POTASSIUM 3.6 mmol/L (3.5-5.1)
--- NOTE | 2019-10-25 07:56 | PN ---
Progress Note, Physician - Current Medication List Current Medications: Active Medications Fentanyl (Sublimaze Injection -) 25 mcg IVPUSH [id number] PRN PRN Reason: PAIN-PACU ORDER X 4 DOSES ONLY Last Admin: 10/23/19 17:30 Dose: 25 mcg Documented by: Fluphenazine HCl (Prolixin) 1 mg PO TID [facility] Last Admin: 10/25/19 06:11 Dose: 1 mg Documented by: Metronidazole (Flagyl 500mg Premixed Ivpb -) 500 mg in 100 mls @ 100 mls/hr IVPB Q8H-IV TING Last Admin: 10/25/19 01:08 Dose: 100 mls/hr Documented by: Ceftriaxone Sodium 1 gm/ (Dextrose) 50 mls @ 100 mls/hr IVPB DAILY [facility]; Protocol Last Admin: 10/24/19 12:25 Dose: 100 mls/hr Documented by: Potassium Chloride 40 meq/ (Dextrose) 1,020 mls @ 100 mls/hr IVPB Q10H TING Last Admin: 10/25/19 03:06 Dose: Not Given Documented by: Ondansetron HCl (Zofran Injection) 4 mg IVPUSH Q6H PRN PRN Reason: NAUSEA AND/OR VOMITING Pantoprazole Sodium (Protonix -) 20 mg PO DAILY [facility] Last Admin: 10/24/19 11:15 Dose: 20 mg Documented by: - Objective Vital Signs: Vital Signs Temperature 97.9 F 10/25/19 05:51 Pulse Rate 98 H 10/25/19 05:51 Respiratory Rate 22 H 10/25/19 05:51 Blood Pressure 125/65 10/25/19 05:51 O2 Sat by Pulse Oximetry (%) 96 10/25/19 05:51 Cardiovascular: Yes: Regular Rate and Rhythm Respiratory: Yes: Regular, CTA Bilaterally Gastrointestinal: Yes: Normal Bowel Sounds, Soft. No: Tenderness Labs: CBC, BMP 10/24/19 11:47 10/25/19 06:44 INR, PTT INR 1.26 (0.83-1.09) H 10/19/19 17:35 Problem List - Problems (1) Anemia Assessment/Plan: IRON STUDIES FOLLOW LABS GI CONSULT NOTED s/p EGD Abnormal Lab Results 10/24/19 10/24/19 10/25/19 11:47 11:47 06:44 WBC 12.9 H RBC 3.09 L Hgb 8.9 L Hct 27.9 L D MCHC 31.8 L RDW 16.3 H Sodium 153 H 149 H Chloride 125 H 120 H Carbon Dioxide 20 L Anion Gap 5 L BUN 24.5 H Random Glucose 113 H 125 H Calcium 8.4 L 7.7 L Phosphorus 1.5 L Magnesium 1.7 L Code(s): D64.9 - ANEMIA, UNSPECIFIED (2) Elevated troponin I level Code(s): R79.89 - OTHER SPECIFIED ABNORMAL FINDINGS OF BLOOD CHEMISTRY (3) Acute cholecystitis Assessment/Plan: IV ABX SURGICAL AND ID CONSULTS CULTURES HIDA SCAN N NEGATIVE Code(s): K81.0 - ACUTE CHOLECYSTITIS (4) GI bleed Assessment/Plan: FOLLOW LABS GI CONSULT--S/P EGD Code(s): K92.2 - GASTROINTESTINAL HEMORRHAGE, UNSPECIFIED (5) Altered mental status Assessment/Plan: MAYBE DUE TO INFECTION NEURO CONSULT NOTED Code(s): R41.82 - ALTERED MENTAL STATUS, UNSPECIFIED Qualifiers: Altered mental status type: disorientation Qualified Code(s): R41.0 - Disorientation, unspecified (6) Dementia Code(s): F03.90 - UNSPECIFIED DEMENTIA WITHOUT BEHAVIORAL DISTURBANCE Qualifiers: Dementia type: Alzheimer's disease Alzheimer's disease onset: unspecified onset Dementia behavioral disturbance: without behavioral disturbance Qualified Code(s): G30.9 - Alzheimer's disease, unspecified; F02.80 - Dementia in other diseases classified elsewhere without behavioral disturbance (7) Hypokalemia Assessment/Plan: AND HYPERNATREMIA--IMPROVED MONITOR RENAL APPRECIATED Code(s): E87.6 - HYPOKALEMIA (8) Acute kidney injury Assessment/Plan: R/O RETENTION BLADDER SCAN Code(s): N17.9 - ACUTE KIDNEY FAILURE, UNSPECIFIED (9) Duodenal diverticulum Assessment/Plan: GI noted MRI PENDING Code(s): K57.10 - DVRTCLOS OF SM INT W/O PERFORATION OR ABSCESS W/O BLEEDING
[2019-10-25] MEDS ORDERED: cefTRIAXone SODIUM 1 GM VIAL ONE (09:33)
[2019-10-25] MEDS ORDERED: DEXTROSE 5%-WATER - 50 ML IVPB ONE (09:33)
[2019-10-25 10:03] LABS: BASO % 0.1 % (0-2.0); EOS % 1.6 % (0-4.5); HEMATOCRIT 25.4 % (32.4-45.2); HEMOGLOBIN 8.3 GM/dL (10.7-15.3); LYMPH % 12.4 % (8-40); MCH 29.1 pg (25.7-33.7); MCHC 32.5 g/dl (32.0-36.0); MEAN CELL VOLUME 89.3 fl (80-96); MEAN PLT VOLUME 8.1 fl (7.5-11.1); MONO % 7.3 % (3.8-10.2); NEUT % 78.6 % (42.8-82.8); PLATELET COUNT 207 K/MM3 (134-434); RBC 2.84 M/mm3 (3.60-5.2); RDW 15.9 % (11.6-15.6); WHITE BLOOD COUNT 11.7 K/mm3 (4.0-10.0)
[2019-10-25 10:15] LABS: ALBUMIN 1.8 g/dl (3.4-5.0); BILIRUBIN,TOTAL 0.2 mg/dL (0.2-1); TOT PROT 4.3 g/dl (6.4-8.2)
[2019-10-25] MEDS: PANTOPRAZOLE 20 MG TABLET PO SCH (10:33)
[2019-10-25] MEDS: CEFTRIAXONE 1 GM in DEXTROSE 5%-WATER - 50 ML IVPB SCH (10:33)
--- NOTE | 2019-10-25 11:49 | PN ---
Progress Note, Physician History of Present Illness: CAlled to re-evaluate pt as she c/o chest pain this am and was noted to be tachycardic. pt seen and examined today in nad. Pt awake and alert but confused. denies any current chest pain. states she does have epigastric discomfort radiating up to her substernum at times but none currently. denies any palpitations. - Current Medication List Current Medications: Active Medications Fentanyl (Sublimaze Injection -) 25 mcg IVPUSH [id number] PRN PRN Reason: PAIN-PACU ORDER X 4 DOSES ONLY Last Admin: 10/23/19 17:30 Dose: 25 mcg Documented by: Fluphenazine HCl (Prolixin) 1 mg PO TID [facility] Last Admin: 10/25/19 06:11 Dose: 1 mg Documented by: Metronidazole (Flagyl 500mg Premixed Ivpb -) 500 mg in 100 mls @ 100 mls/hr IVPB Q8H-IV TING Last Admin: 10/25/19 11:46 Dose: 100 mls/hr Documented by: Ceftriaxone Sodium 1 gm/ (Dextrose) 50 mls @ 100 mls/hr IVPB DAILY [facility]; Protocol Last Admin: 10/25/19 10:33 Dose: 100 mls/hr Documented by: Potassium Chloride 40 meq/ (Dextrose) 1,020 mls @ 100 mls/hr IVPB Q10H [facility] Last Admin: 10/25/19 03:06 Dose: Not Given Documented by: Potassium Phosphate 30 mm/ (Dextrose) 510 mls @ 62.5 mls/hr IVPB ONCE ONE Stop: 10/25/19 20:09 Ondansetron HCl (Zofran Injection) 4 mg IVPUSH Q6H PRN PRN Reason: NAUSEA AND/OR VOMITING Pantoprazole Sodium (Protonix -) 20 mg PO DAILY [facility] Last Admin: 10/25/19 10:33 Dose: 20 mg Documented by: - Objective Vital Signs: Vital Signs Temperature 98.1 F 10/25/19 09:05 Pulse Rate 119 H 10/25/19 10:15 Respiratory Rate 19 10/25/19 10:15 Blood Pressure 110/56 L 10/25/19 10:15 O2 Sat by Pulse Oximetry (%) 98 10/25/19 09:05 Constitutional: Yes: No Distress, Calm Eyes: Yes: Conjunctiva Clear, EOM Intact HENT: Yes: Atraumatic, Normocephalic Neck: Yes: Supple, Trachea Midline Cardiovascular: Yes: Regular Rate and Rhythm, S1, S2. No: Bradycardia, Tachycardia, Pulse Irregular, Bruit, JVD, Gallop, Murmur, Rub, S3, S4, Varicosities Respiratory: Yes: Regular, CTA Bilaterally. No: Rales, Rhonchi, SOB Gastrointestinal: Yes: Normal Bowel Sounds. No: Tenderness Extremities: Yes: WNL Edema: No Peripheral Pulses WNL: Yes Peripheral Pulses: Left Doralis Pedis: 2+, Right Dorsalis Pedis: 2+ Neurological: Yes: Alert Psychiatric: Yes: Alert Labs: CBC, BMP 10/25/19 06:44 10/25/19 06:44 INR, PTT INR 1.26 (0.83-1.09) H 10/19/19 17:35 - ....Imaging Chest X-ray: Report Reviewed, Image Reviewed EKG: Report Reviewed, Image Reviewed Other: Report Reviewed, Image Reviewed (tele-sinus with frequent apcs vs MAT) Assessment/Plan 84 year old woman with h/o dementia, admitted with BRBPR, EGD showing Esophagitis and duodenal narrowing. Reported chest discomfort this am and noted to be tachycardia Arrhythmia -of note on 10/19 pt was found to be agitated, EKG done that day reported as AFib with RVR at 170bpm. -noted to be tachycardic this am as well. EKG done and reviewed appears c/w with MAT -review of EKG from 10/19 is unclear as there is a significant amount of baseline artifact thus difficult to determine if it was truly afib or MAT -suspect she is having MAT with intermittent RVR no definitive evidence of AFib -MAT is not indication for AC and either way would not start AC given admission for GI bleed and anemia -start Lopressor 25mg bid -Replete Electrolytes -cont tele monitoring Chest pain- -unlikely ACS -may be secondary to esophagitis or to tachyarrhythmia -treatment as above
[2019-10-25] MEDS ORDERED: POTASSIUM PHOSPHATE 30 MM in DEXTROSE 5%-WATER - 500 ML IVPB ONE (12:00)
[2019-10-25] MEDS: METOPROLOL TARTRATE 25 MG TABLET (FP) PO SCH ×2 (12:54→22:55)
--- NOTE | 2019-10-25 13:41 | PN ---
Progress Note, Physician History of Present Illness: Seen and examined at the bedside awake and alert no acute complaints no sob, cp, fever, or chills on IV fluids reports that her appetite is poor - Current Medication List Current Medications: Active Medications Fentanyl (Sublimaze Injection -) 25 mcg IVPUSH [id number] PRN PRN Reason: PAIN-PACU ORDER X 4 DOSES ONLY Last Admin: 10/23/19 17:30 Dose: 25 mcg Documented by: Fluphenazine HCl (Prolixin) 1 mg PO TID [facility] Last Admin: 10/25/19 06:11 Dose: 1 mg Documented by: Metronidazole (Flagyl 500mg Premixed Ivpb -) 500 mg in 100 mls @ 100 mls/hr IVPB Q8H-IV TING Last Admin: 10/25/19 11:46 Dose: 100 mls/hr Documented by: Ceftriaxone Sodium 1 gm/ (Dextrose) 50 mls @ 100 mls/hr IVPB DAILY [facility]; Protocol Last Admin: 10/25/19 10:33 Dose: 100 mls/hr Documented by: Potassium Chloride 40 meq/ (Dextrose) 1,020 mls @ 100 mls/hr IVPB Q10H T[facility] Last Admin: 10/25/19 13:15 Dose: Not Given Documented by: Potassium Phosphate 30 mm/ (Dextrose) 510 mls @ 62.5 mls/hr IVPB ONCE ONE Stop: 10/25/19 20:09 Last Admin: 10/25/19 12:54 Dose: 62.5 mls/hr Documented by: Metoprolol Tartrate (Lopressor -) 25 mg PO BID [facility] Last Admin: 10/25/19 12:54 Dose: 25 mg Documented by: Ondansetron HCl (Zofran Injection) 4 mg IVPUSH Q6H PRN PRN Reason: NAUSEA AND/OR VOMITING Pantoprazole Sodium (Protonix -) 20 mg PO DAILY [facility] Last Admin: 10/25/19 10:33 Dose: 20 mg Documented by: - Objective Vital Signs: Vital Signs Temperature 97.9 F 10/25/19 13:16 Pulse Rate 117 H 10/25/19 13:16 Respiratory Rate 10/25/19 13:16 Blood Pressure 141/67 10/25/19 13:16 O2 Sat by Pulse Oximetry (%) 97 10/25/19 13:16 Constitutional: Yes: No Distress HENT: Yes: Atraumatic Neck: Yes: Supple Cardiovascular: Yes: Regular Rate and Rhythm Respiratory: Yes: Regular Gastrointestinal: Yes: Soft Extremities: No: Cyanosis Edema: No Labs: CBC, BMP 10/25/19 06:44 10/25/19 06:44 INR, PTT INR 1.26 (0.83-1.09) H 10/19/19 17:35 Assessment/Plan 84 year old woman with history of COPD, hypertension, Dementia, peptic ulcer disease and hemmorrhoids who presented with suspected GI bleed and found to have Cr of 2. 1. Acute on chronic renal insufficiency 2. CKD 3. Suspected GI Bleed 4. Acute on chronic anemia 5. Hypernatremia 6. Leukocytosis 7. Hypokalemia 8. Hypophosphatemia 9. Hypomagnesemia Renal function improved and stable Continue D5W for management of hypernatremia. Encouraged oral hydration as tolerated. for trial of void today. Supplement phos with IV k-phos Trend renal function and electrolytes daily Raymond Holden DO
--- NOTE | 2019-10-25 14:19 | PN ---
Progress Note (short form) - Note Progress Note: Awaiting MRI. If continued dwindling H/H, will d/w family re: feasibility of colonoscopy Problem List - Problems (1) Anemia Code(s): D64.9 - ANEMIA, UNSPECIFIED (2) Thickening of wall of gallbladder Code(s): K82.8 - OTHER SPECIFIED DISEASES OF GALLBLADDER
--- NOTE | 2019-10-25 21:11 | PN ---
Progress Note, Physician History of Present Illness: MORE AWAKE AND ALERT TODAY TOLERATING CEPHALOSPORIN AFEBRILE WBC IMPROVED - Current Medication List Current Medications: Active Medications Fentanyl (Sublimaze Injection -) 25 mcg IVPUSH [id number] PRN PRN Reason: PAIN-PACU ORDER X 4 DOSES ONLY Last Admin: 10/23/19 17:30 Dose: 25 mcg Documented by: Fluphenazine HCl (Prolixin) 1 mg PO TID [facility] Last Admin: 10/25/19 13:50 Dose: 1 mg Documented by: Metronidazole (Flagyl 500mg Premixed Ivpb -) 500 mg in 100 mls @ 100 mls/hr IVPB Q8H-IV TING Last Admin: 10/25/19 18:10 Dose: 100 mls/hr Documented by: Ceftriaxone Sodium 1 gm/ (Dextrose) 50 mls @ 100 mls/hr IVPB DAILY [facility]; Protocol Last Admin: 10/25/19 10:33 Dose: 100 mls/hr Documented by: Potassium Chloride 40 meq/ (Dextrose) 1,020 mls @ 100 mls/hr IVPB Q10H [facility] Last Admin: 10/25/19 13:15 Dose: Not Given Documented by: Metoprolol Tartrate (Lopressor -) 25 mg PO BID [facility] Last Admin: 10/25/19 12:54 Dose: 25 mg Documented by: Ondansetron HCl (Zofran Injection) 4 mg IVPUSH Q6H PRN PRN Reason: NAUSEA AND/OR VOMITING Pantoprazole Sodium (Protonix -) 20 mg PO DAILY [facility] Last Admin: 10/25/19 10:33 Dose: 20 mg Documented by: - Objective Vital Signs: Vital Signs Temperature 98.3 F 10/25/19 18:00 Pulse Rate 89 10/25/19 18:00 Respiratory Rate 18 10/25/19 18:00 Blood Pressure 117/59 L 10/25/19 18:00 O2 Sat by Pulse Oximetry (%) 97 10/25/19 13:16 Constitutional: Yes: No Distress Eyes: Yes: Conjunctiva Clear Cardiovascular: Yes: Regular Rate and Rhythm, S1, S2 Respiratory: Yes: CTA Bilaterally Gastrointestinal: Yes: Normal Bowel Sounds, Soft Labs: CBC, BMP 10/25/19 06:44 10/25/19 06:44 INR, PTT INR 1.26 (0.83-1.09) H 10/19/19 17:35 Assessment/Plan R/O ACUTE CHOLECYSTITIS POSSIBLE SEPSIS SECONDARY TO GB SOURCE GI BLEED PCN ALLERGY CONTINUE EMPIRIC CEFTRIAXONE/ FLAGYL
[2019-10-26] MEDS ORDERED: PT OWN MED DRAWER 7, Y5N ONE ×6 (03:32→22:33)
[2019-10-26] MEDS: POTASSIUM CHLORIDE 40 MEQ in DEXTROSE 5%-WATER - 1,000 ML IVPB SCH ×2 (03:35→09:44)
[2019-10-26 07:33] LABS: BASO % 0.2 % (0-2.0); EOS % 1.9 % (0-4.5); HEMATOCRIT 24.7 % (32.4-45.2); MCH 28.9 pg (25.7-33.7); MCHC 32.5 g/dl (32.0-36.0); MEAN CELL VOLUME 88.8 fl (80-96); MEAN PLT VOLUME 7.6 fl (7.5-11.1); MONO % 6.4 % (3.8-10.2); NEUT % 77.5 % (42.8-82.8); PLATELET COUNT 210 K/MM3 (134-434); RBC 2.78 M/mm3 (3.60-5.2); RDW 15.8 % (11.6-15.6); WHITE BLOOD COUNT 9.7 K/mm3 (4.0-10.0)
[2019-10-26 07:44] LABS: BLOOD UREA NITROGEN 8.2 mg/dL (7-18); CALCIUM 7.5 mg/dL (8.5-10.1); CREATININE 0.7 mg/dL (0.55-1.3); MAGNESIUM 1.7 mg/dL (1.8-2.4); PHOSPHOROUS 2.4 mg/dL (2.5-4.9); POTASSIUM 4.3 mmol/L (3.5-5.1)
--- NOTE | 2019-10-26 08:58 | PN ---
Progress Note, Physician - Current Medication List Current Medications: Active Medications Fentanyl (Sublimaze Injection -) 25 mcg IVPUSH [id number] PRN PRN Reason: PAIN-PACU ORDER X 4 DOSES ONLY Last Admin: 10/23/19 17:30 Dose: 25 mcg Documented by: Fluphenazine HCl (Prolixin) 1 mg PO TID [facility] Last Admin: 10/26/19 05:46 Dose: 1 mg Documented by: Metronidazole (Flagyl 500mg Premixed Ivpb -) 500 mg in 100 mls @ 100 mls/hr IVPB Q8H-IV TING Last Admin: 10/26/19 01:22 Dose: 100 mls/hr Documented by: Ceftriaxone Sodium 1 gm/ (Dextrose) 50 mls @ 100 mls/hr IVPB DAILY [facility]; Protocol Last Admin: 10/25/19 10:33 Dose: 100 mls/hr Documented by: Potassium Chloride 40 meq/ (Dextrose) 1,020 mls @ 100 mls/hr IVPB Q10H [facility] Last Admin: 10/26/19 03:35 Dose: 100 mls/hr Documented by: Metoprolol Tartrate (Lopressor -) 25 mg PO BID [facility] Last Admin: 10/25/19 22:55 Dose: 25 mg Documented by: Ondansetron HCl (Zofran Injection) 4 mg IVPUSH Q6H PRN PRN Reason: NAUSEA AND/OR VOMITING Pantoprazole Sodium (Protonix -) 20 mg PO DAILY [facility] Last Admin: 10/25/19 10:33 Dose: 20 mg Documented by: - Objective Vital Signs: Vital Signs Temperature 97.7 F 10/26/19 02:00 Pulse Rate 84 10/26/19 02:00 Respiratory Rate 18 10/26/19 02:00 Blood Pressure 132/64 10/26/19 02:00 O2 Sat by Pulse Oximetry (%) 98 10/26/19 02:00 Cardiovascular: Yes: S1, S2 Respiratory: Yes: Regular, CTA Bilaterally Gastrointestinal: Yes: Normal Bowel Sounds, Soft. No: Tenderness Edema: No Labs: CBC, BMP 10/26/19 06:40 10/26/19 06:40 INR, PTT INR 1.26 (0.83-1.09) H 10/19/19 17:35 Problem List - Problems (1) Anemia Assessment/Plan: IRON STUDIES FOLLOW LABS GI CONSULT NOTED s/p EGD--Colonoscopy per GI Abnormal Lab Results 10/22/19 10/25/19 10/25/19 17:35 06:44 06:44 WBC 11.7 H RBC 2.84 L Hgb 8.3 L Hct 25.4 L RDW 15.9 H Absolute Neuts (auto) 9.2 H Sodium 149 H Chloride 120 H Anion Gap 5 L Random Glucose 125 H Calcium 7.7 L Phosphorus 1.5 L Magnesium AST 9 L ALT 9 L Total Protein 4.3 L Albumin 1.8 L Crossmatch See Detail 10/26/19 10/26/19 06:40 06:40 WBC RBC 2.78 L Hgb 8.0 L Hct 24.7 L RDW 15.8 H Absolute Neuts (auto) Sodium Chloride 116 H Anion Gap 7 L Random Glucose 120 H Calcium 7.5 L Phosphorus 2.4 L Magnesium 1.7 L AST ALT Total Protein Albumin Crossmatch Code(s): D64.9 - ANEMIA, UNSPECIFIED (2) Elevated troponin I level Code(s): R79.89 - OTHER SPECIFIED ABNORMAL FINDINGS OF BLOOD CHEMISTRY (3) Acute cholecystitis Assessment/Plan: IV ABX PER ID SURGICAL AND ID CONSULTS CULTURES HIDA SCAN NEGATIVE Code(s): K81.0 - ACUTE CHOLECYSTITIS (4) GI bleed Assessment/Plan: FOLLOW LABS GI CONSULT--S/P EGD--Possible colon per gi Code(s): K92.2 - GASTROINTESTINAL HEMORRHAGE, UNSPECIFIED (5) Altered mental status Assessment/Plan: Improved MAYBE DUE TO INFECTION NEURO CONSULT NOTED Code(s): R41.82 - ALTERED MENTAL STATUS, UNSPECIFIED Qualifiers: Altered mental status type: disorientation Qualified Code(s): R41.0 - Disorientation, unspecified (6) Dementia Code(s): F03.90 - UNSPECIFIED DEMENTIA WITHOUT BEHAVIORAL DISTURBANCE Qualifiers: Dementia type: Alzheimer's disease Alzheimer's disease onset: unspecified onset Dementia behavioral disturbance: without behavioral disturbance Qualified Code(s): G30.9 - Alzheimer's disease, unspecified; F02.80 - Dementia in other diseases classified elsewhere without behavioral disturbance (7) Hypokalemia Assessment/Plan: AND HYPERNATREMIA--IMPROVED MONITOR RENAL APPRECIATED Code(s): E87.6 - HYPOKALEMIA (8) Acute kidney injury Assessment/Plan: R/O RETENTION BLADDER SCAN Code(s): N17.9 - ACUTE KIDNEY FAILURE, UNSPECIFIED (9) Duodenal diverticulum Assessment/Plan: GI noted MRI DONE RESULTS PENDING Code(s): K57.10 - DVRTCLOS OF SM INT W/O PERFORATION OR ABSCESS W/O BLEEDING (10) Arrhythmia Assessment/Plan: PER CARDIO -of note on 10/19 pt was found to be agitated, EKG done that day reported as AFib with RVR at 170bpm. -noted to be tachycardic this am as well. EKG done and reviewed appears c/w with MAT -review of EKG from 10/19 is unclear as there is a significant amount of baseline artifact thus difficult to determine if it was truly afib or MAT -suspect she is having MAT with intermittent RVR no definitive evidence of AFib -MAT is not indication for AC and either way would not start AC given admission for GI bleed and anemia -start Lopressor 25mg bid -Replete Electrolytes -cont tele monitoring Code(s): I49.9 - CARDIAC ARRHYTHMIA, UNSPECIFIED
[2019-10-26] MEDS ORDERED: DEXTROSE 5%-WATER - 50 ML IVPB ONE (09:29)
[2019-10-26] MEDS ORDERED: cefTRIAXone SODIUM 1 GM VIAL ONE (09:29)
[2019-10-26] MEDS ORDERED: MAGNESIUM SULF 50% (8.12 MEQ/2 ML-1 GM VIAL) IVPB ONE (09:30)
[2019-10-26] MEDS ORDERED: MAGNESIUM 2GM/50ML STERILE WATER IVPB IVPB ONE (09:30)
[2019-10-26] MEDS: METOPROLOL TARTRATE 25 MG TABLET (FP) PO SCH ×2 (09:37→22:39)
[2019-10-26] MEDS: PANTOPRAZOLE 20 MG TABLET PO SCH (09:39)
--- NOTE | 2019-10-26 11:18 | EKG ---
Test Reason : Blood Pressure : / mmHG Vent. Rate : 104 BPM Atrial Rate : 104 BPM P-R Int : 144 ms QRS Dur : 076 ms QT Int : 320 ms P-R-T Axes : 000 054 -03 degrees QTc Int : 420 ms SINUS TACHYCARDIA WITH PREMATURE ATRIAL COMPLEXES WITH ABERRANT CONDUCTION NONSPECIFIC T WAVE ABNORMALITY ABNORMAL ECG WHEN COMPARED WITH ECG OF 20-OCT-2019 20:51, SINUS RHYTHM HAS REPLACED ATRIAL FIBRILLATION VENT. RATE HAS DECREASED BY [address] NO LONGER DEPRESSED IN ANTERIOR LEADS NONSPECIFIC T WAVE ABNORMALITY, WORSE IN ANTEROLATERAL LEADS Confirmed by PITA KANPP MD ([id number]) on 10/26/2019 11:17:43 AM Referred By: Confirmed By:PITA KNAPP MD
[2019-10-26] MEDS: CEFTRIAXONE 1 GM in DEXTROSE 5%-WATER - 50 ML IVPB SCH (11:20)
--- NOTE | 2019-10-26 11:33 | PN ---
Progress Note, Physician History of Present Illness: seen and examined today in nad. no overnight events. no new complaints. - Current Medication List Current Medications: Active Medications Fentanyl (Sublimaze Injection -) 25 mcg IVPUSH [id number] PRN PRN Reason: PAIN-PACU ORDER X 4 DOSES ONLY Last Admin: 10/23/19 17:30 Dose: 25 mcg Documented by: Fluphenazine HCl (Prolixin) 1 mg PO TID [facility] Last Admin: 10/26/19 05:46 Dose: 1 mg Documented by: Metronidazole (Flagyl 500mg Premixed Ivpb -) 500 mg in 100 mls @ 100 mls/hr IVPB Q8H-IV TING Last Admin: 10/26/19 01:22 Dose: 100 mls/hr Documented by: Ceftriaxone Sodium 1 gm/ (Dextrose) 50 mls @ 100 mls/hr IVPB DAILY [facility]; Protocol Last Admin: 10/26/19 11:20 Dose: 100 mls/hr Documented by: Potassium Chloride 40 meq/ (Dextrose) 1,020 mls @ 100 mls/hr IVPB Q10H [facility] Last Admin: 10/26/19 09:44 Dose: Not Given Documented by: Metoprolol Tartrate (Lopressor -) 25 mg PO BID [facility] Last Admin: 10/26/19 09:37 Dose: 25 mg Documented by: Ondansetron HCl (Zofran Injection) 4 mg IVPUSH Q6H PRN PRN Reason: NAUSEA AND/OR VOMITING Pantoprazole Sodium (Protonix -) 20 mg PO DAILY [facility] Last Admin: 10/26/19 09:39 Dose: 20 mg Documented by: - Objective Vital Signs: Vital Signs Temperature 97.7 F 10/26/19 02:00 Pulse Rate 84 10/26/19 02:00 Respiratory Rate 18 10/26/19 02:00 Blood Pressure 132/64 10/26/19 02:00 O2 Sat by Pulse Oximetry (%) 98 10/26/19 02:00 Constitutional: Yes: No Distress, Calm Eyes: Yes: Conjunctiva Clear, EOM Intact, PERRL HENT: Yes: Atraumatic Neck: Yes: Supple, Trachea Midline Cardiovascular: Yes: Regular Rate and Rhythm, S1, S2. No: Bradycardia, Tachycardia, Pulse Irregular, Bruit, JVD, Gallop, Murmur, Rub, S3, S4, Varicosities Respiratory: Yes: Regular, CTA Bilaterally. No: Rales, Rhonchi, Wheezes Gastrointestinal: Yes: Normal Bowel Sounds, Soft. No: Distention, Tenderness Musculoskeletal: Yes: WNL Extremities: Yes: WNL Edema: No Peripheral Pulses WNL: Yes Neurological: Yes: Alert Psychiatric: Yes: Alert Labs: CBC, BMP 10/26/19 06:40 10/26/19 06:40 INR, PTT INR 1.26 (0.83-1.09) H 10/19/19 17:35 - ....Imaging Chest X-ray: Report Reviewed, Image Reviewed EKG: Report Reviewed, Image Reviewed Other: Report Reviewed, Image Reviewed (tele-nsr vs ectopic atrial rhythm, no further tachycardia overnight) Assessment/Plan 84 year old woman with h/o dementia, admitted with BRBPR, EGD showing Esophagitis and duodenal narrowing. Reported chest discomfort this am and noted to be tachycardia Arrhythmia -of note on 10/19 pt was found to be agitated, EKG done that day reported as AFib with RVR at 170bpm. -noted to be tachycardic 10/25 as well. EKG done and reviewed appears c/w with MAT -review of EKG from 10/19 is unclear as there is a significant amount of baseline artifact thus difficult to determine if it was truly afib or MAT -suspect she is having MAT with intermittent RVR no definitive evidence of AFib -MAT is not indication for AC and either way would not start AC given admission for GI bleed and anemia -tele overnight showed nsr vs ectopic atrial rhythm, no further tachycardia -cont Lopressor 25mg bid -Replete Electrolytes Chest pain- -unlikely ACS -may be secondary to esophagitis or to tachyarrhythmia -treatment as above no additional inpatient cardiac work up is needed at this time. will see as needed. please call with any additional questions.
--- NOTE | 2019-10-26 13:42 | PN ---
Progress Note, Physician History of Present Illness: AWAKE AND ALERT TODAY NO COMPLAINTS NO ABDOMINAL PAIN TOLERATING CEPHALOSPORIN AFEBRILE WBC IMPROVED WNL HIDA NORMAL MRI PENDING - Current Medication List Current Medications: Active Medications Fentanyl (Sublimaze Injection -) 25 mcg IVPUSH [id number] PRN PRN Reason: PAIN-PACU ORDER X 4 DOSES ONLY Last Admin: 10/23/19 17:30 Dose: 25 mcg Documented by: Fluphenazine HCl (Prolixin) 1 mg PO TID [facility] Last Admin: 10/26/19 05:46 Dose: 1 mg Documented by: Metronidazole (Flagyl 500mg Premixed Ivpb -) 500 mg in 100 mls @ 100 mls/hr IVPB Q8H-IV [facility] Last Admin: 10/26/19 12:44 Dose: 100 mls/hr Documented by: Ceftriaxone Sodium 1 gm/ (Dextrose) 50 mls @ 100 mls/hr IVPB DAILY [facility]; Protocol Last Admin: 10/26/19 11:20 Dose: 100 mls/hr Documented by: Potassium Chloride 40 meq/ (Dextrose) 1,020 mls @ 100 mls/hr IVPB Q10H [facility] Last Admin: 10/26/19 09:44 Dose: Not Given Documented by: Metoprolol Tartrate (Lopressor -) 25 mg PO BID [facility] Last Admin: 10/26/19 09:37 Dose: 25 mg Documented by: Ondansetron HCl (Zofran Injection) 4 mg IVPUSH Q6H PRN PRN Reason: NAUSEA AND/OR VOMITING Pantoprazole Sodium (Protonix -) 20 mg PO DAILY [facility] Last Admin: 10/26/19 09:39 Dose: 20 mg Documented by: - Objective Vital Signs: Vital Signs Temperature 97.7 F 10/26/19 10:00 Pulse Rate 101 H 10/26/19 10:00 Respiratory Rate 18 10/26/19 10:00 Blood Pressure 114/56 L 10/26/19 10:00 O2 Sat by Pulse Oximetry (%) 98 10/26/19 10:00 Constitutional: Yes: No Distress Eyes: Yes: Conjunctiva Clear Cardiovascular: Yes: Regular Rate and Rhythm, S1, S2 Respiratory: Yes: CTA Bilaterally Gastrointestinal: Yes: Normal Bowel Sounds, Soft. No: Tenderness Edema: No Labs: CBC, BMP 10/26/19 06:40 10/26/19 06:40 INR, PTT INR 1.26 (0.83-1.09) H 10/19/19 17:35 Assessment/Plan R/O ACUTE CHOLECYSTITIS POSSIBLE SEPSIS SECONDARY TO GB SOURCE GI BLEED PCN ALLERGY CONTINUE EMPIRIC CEFTRIAXONE/ FLAGYL DAY# 7 ANTIBIOTICS IF MRI NEGATIVE, D/C ANTIBIOTICS
--- NOTE | 2019-10-26 14:18 | PN ---
Progress Note, Physician History of Present Illness: Pt seen and examined at bedside. SHe is awake and appears comfortable. - Current Medication List Current Medications: Active Medications Fentanyl (Sublimaze Injection -) 25 mcg IVPUSH [id number] PRN PRN Reason: PAIN-PACU ORDER X 4 DOSES ONLY Last Admin: 10/23/19 17:30 Dose: 25 mcg Documented by: Fluphenazine HCl (Prolixin) 1 mg PO TID [facility] Last Admin: 10/26/19 05:46 Dose: 1 mg Documented by: Metronidazole (Flagyl 500mg Premixed Ivpb -) 500 mg in 100 mls @ 100 mls/hr IVPB Q8H-IV TING Last Admin: 10/26/19 12:44 Dose: 100 mls/hr Documented by: Ceftriaxone Sodium 1 gm/ (Dextrose) 50 mls @ 100 mls/hr IVPB DAILY [facility]; Protocol Last Admin: 10/26/19 11:20 Dose: 100 mls/hr Documented by: Potassium Chloride 40 meq/ (Dextrose) 1,020 mls @ 100 mls/hr IVPB Q10H TING Last Admin: 10/26/19 09:44 Dose: Not Given Documented by: Metoprolol Tartrate (Lopressor -) 25 mg PO BID [facility] Last Admin: 10/26/19 09:37 Dose: 25 mg Documented by: Ondansetron HCl (Zofran Injection) 4 mg IVPUSH Q6H PRN PRN Reason: NAUSEA AND/OR VOMITING Pantoprazole Sodium (Protonix -) 20 mg PO DAILY [facility] Last Admin: 10/26/19 09:39 Dose: 20 mg Documented by: - Objective Vital Signs: Vital Signs Temperature 97.7 F 10/26/19 10:00 Pulse Rate 101 H 10/26/19 10:00 Respiratory Rate 18 10/26/19 10:00 Blood Pressure 114/56 L 10/26/19 10:00 O2 Sat by Pulse Oximetry (%) 98 10/26/19 10:00 Constitutional: Yes: Calm Eyes: Yes: Conjunctiva Clear HENT: Yes: Atraumatic Neck: Yes: Supple Cardiovascular: Yes: S1, S2 Respiratory: Yes: CTA Bilaterally Gastrointestinal: Yes: Normal Bowel Sounds, Soft Genitourinary: Yes: Incontinence Musculoskeletal: Yes: WNL Extremities: Yes: WNL Edema: No Neurological: Yes: Oriented Labs: CBC, BMP 10/26/19 06:40 10/26/19 06:40 INR, PTT INR 1.26 (0.83-1.09) H 10/19/19 17:35 Assessment/Plan Current Medications Generic Name Dose Route Start Last Admin Trade Name Susan PRN Reason Stop Dose Admin Fentanyl 25 mcg 10/23/19 17:42 10/23/19 17:30 Sublimaze Injection - IVPUSH 25 mcg [id number] PRN Administration PAIN-PACU ORDER X 4 DOSES ONLY Fluphenazine HCl 1 mg 10/21/19 22:00 10/26/19 05:46 Prolixin PO 1 mg TID TING Administration Metronidazole 500 mg in 100 mls @ 100 mls/hr 10/20/19 03:00 10/26/19 12:44 Flagyl 500mg Premixed Ivpb - IVPB 100 mls/hr Q8H-IV TING Administration Ceftriaxone Sodium 1 gm/ 50 mls @ 100 mls/hr 10/24/19 10:00 10/26/19 11:20 Dextrose IVPB 100 mls/hr DAILY TING Administration Protocol Potassium Chloride 40 meq/ 1,020 mls @ 100 mls/hr 10/24/19 17:00 10/26/19 09:44 Dextrose IVPB Not Given Q10H TING Metoprolol Tartrate 25 mg 10/25/19 12:45 10/26/19 09:37 Lopressor - PO 25 mg BID TING Administration Ondansetron HCl 4 mg 10/23/19 17:42 Zofran Injection IVPUSH Q6H PRN NAUSEA AND/OR VOMITING Pantoprazole Sodium 20 mg 10/24/19 10:00 10/26/19 09:39 Protonix - PO 20 mg DAILY TING Administration Laboratory Tests 10/26/19 06:40 Phosphorus 2.4 L Magnesium 1.7 L 1. CHAVA 2. CKD 3. Suspected GI Bleed 4. Acute on chronic anemia 5. Hypernatremia 6. Leukocytosis 7. Hypokalemia 8. Hypophosphatemia 9. Hypomagnesemia Plan - sodium improving - repeat labs in am - decrease rate of d5w - replace mag and phos
--- NOTE | 2019-10-26 16:37 | PN.GI ---
GI Progress Note Subjective: No acute events No abdominal pain Per nurse, stool no longer black, now dark brown and formed MRI/MRCP performed, not read as of yet - Objective Vital Signs: Vital Signs Temperature 97.7 F 10/26/19 10:00 Pulse Rate 101 H 10/26/19 10:00 Respiratory Rate 18 10/26/19 10:00 Blood Pressure 114/56 L 10/26/19 10:00 O2 Sat by Pulse Oximetry (%) 98 10/26/19 10:00 Constitutional: Calm Eyes: No: Sclera Icterus Cardiovascular: Yes: Regular Rate and Rhythm Respiratory: Yes: CTA Bilaterally Gastrointestinal Inspection: No: Distention ...Auscultate: Yes: Normoactive Bowel Sounds ...Palpate: Yes: Soft. No: Hepatomegaly, Splenomegaly, Tenderness ...Percussion: No: Tympanitic Edema: No (No LE edema) Neurological: Yes: Alert, Confusion Labs: CBC, BMP 10/26/19 06:40 10/26/19 06:40 INR, PTT INR 1.26 (0.83-1.09) H 10/19/19 17:35 Problem List - Problems (1) Anemia Assessment/Plan: No further melena reported Continue protonix 40mg daily If continued dwindling H/H, will proceed with colonoscopy if family (patient's nephew ronald is HCP) amenable. 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 Also what appeared to be stone like fragments in 2nd portion duodenum and within opening within the duodenal sweep. ? if the opening is simply mouth of the diverticulum or if there is communication between this diverticulum and gallbladder leading to cholecystoduodenal fistula. Awaiting MRI/MRCP read. Called Dr. Chapa's extension to discuss but no answer. Code(s): K57.10 - DVRTCLOS OF SM INT W/O PERFORATION OR ABSCESS W/O BLEEDING
[2019-10-26] MEDS: POTASSIUM CHLORIDE 20 MEQ in DEXTROSE 5%-WATER - 1,000 ML IVPB SCH (17:03)
[2019-10-26] MEDS: NAPH,MB-DB/K PH,MBDB POWDER PACKET PO SCH (22:39)
[2019-10-27] MEDS: POTASSIUM CHLORIDE 20 MEQ in DEXTROSE 5%-WATER - 1,000 ML IVPB SCH (06:41)
[2019-10-27 06:59] LABS: BILIRUBIN,TOTAL 0.6 mg/dL (0.2-1); BLOOD UREA NITROGEN 8.1 mg/dL (7-18); CALCIUM 7.9 mg/dL (8.5-10.1); CREATININE 0.6 mg/dL (0.55-1.3); POTASSIUM 4.8 mmol/L (3.5-5.1); TOT PROT 4.8 g/dl (6.4-8.2)
[2019-10-27] MEDS ORDERED: PT OWN MED DRAWER 7, Y5N ONE ×4 (07:34→21:50)
[2019-10-27] MEDS ORDERED: DEXTROSE 5%-WATER - 50 ML IVPB ONE (08:30)
[2019-10-27] MEDS ORDERED: cefTRIAXone SODIUM 1 GM VIAL ONE (08:30)
[2019-10-27] MEDS: CEFTRIAXONE 1 GM in DEXTROSE 5%-WATER - 50 ML IVPB SCH (09:04)
[2019-10-27] MEDS: METOPROLOL TARTRATE 25 MG TABLET (FP) PO SCH ×2 (11:40→21:59)
[2019-10-27] MEDS: NAPH,MB-DB/K PH,MBDB POWDER PACKET PO SCH ×2 (11:40→22:00)
[2019-10-27] MEDS: PANTOPRAZOLE 20 MG TABLET PO SCH (11:41)
--- NOTE | 2019-10-27 13:02 | PN ---
Progress Note, Physician History of Present Illness: Pt seen and examined at bedside. She is awake and appears comfortable. - Current Medication List Current Medications: Active Medications Fentanyl (Sublimaze Injection -) 25 mcg IVPUSH [id number] PRN PRN Reason: PAIN-PACU ORDER X 4 DOSES ONLY Last Admin: 10/23/19 17:30 Dose: 25 mcg Documented by: Fluphenazine HCl (Prolixin) 1 mg PO TID [facility] Last Admin: 10/27/19 06:36 Dose: 1 mg Documented by: Ceftriaxone Sodium 1 gm/ (Dextrose) 50 mls @ 100 mls/hr IVPB DAILY [facility]; Protocol Last Admin: 10/27/19 09:04 Dose: 100 mls/hr Documented by: Potassium Chloride 20 meq/ (Dextrose) 1,010 mls @ 60 mls/hr IVPB Q16H [facility] Last Admin: 10/27/19 06:41 Dose: Not Given Documented by: Metoprolol Tartrate (Lopressor -) 25 mg PO BID [facility] Last Admin: 10/27/19 11:40 Dose: 25 mg Documented by: Ondansetron HCl (Zofran Injection) 4 mg IVPUSH Q6H PRN PRN Reason: NAUSEA AND/OR VOMITING Pantoprazole Sodium (Protonix -) 20 mg PO DAILY [facility] Last Admin: 10/27/19 11:41 Dose: 20 mg Documented by: Potassium Phos/Sodium Phos (Phos-Nak Packet -) 1 packet PO BID [facility] Stop: 10/28/19 10:01 Last Admin: 10/27/19 11:40 Dose: 1 packet Documented by: - Objective Vital Signs: Vital Signs Temperature 97.7 F 10/27/19 10:00 Pulse Rate 62 10/27/19 10:00 Respiratory Rate 18 10/27/19 10:00 Blood Pressure 129/57 L 10/27/19 10:00 O2 Sat by Pulse Oximetry (%) 98 10/27/19 10:00 Constitutional: Yes: Calm Eyes: Yes: Conjunctiva Clear HENT: Yes: Atraumatic Neck: Yes: Supple Cardiovascular: Yes: S1, S2 Respiratory: Yes: CTA Bilaterally Gastrointestinal: Yes: Soft Genitourinary: Yes: Perdomo Present Musculoskeletal: Yes: WNL Edema: No Integumentary: Yes: WNL Neurological: Yes: Oriented Labs: CBC, BMP 10/26/19 06:40 07/25/20 06:00 INR, PTT INR 1.26 (0.83-1.09) H 10/19/19 17:35 Assessment/Plan Current Medications Generic Name Dose Route Start Last Admin Trade Name Susan PRN Reason Stop Dose Admin Fentanyl 25 mcg 10/23/19 17:42 10/23/19 17:30 Sublimaze Injection - IVPUSH 25 mcg [id number] PRN Administration PAIN-PACU ORDER X 4 DOSES ONLY Fluphenazine HCl 1 mg 10/21/19 22:00 10/27/19 06:36 Prolixin PO 1 mg TID TING Administration Ceftriaxone Sodium 1 gm/ 50 mls @ 100 mls/hr 10/24/19 10:00 10/27/19 09:04 Dextrose IVPB 100 mls/hr DAILY TING Administration Protocol Potassium Chloride 20 meq/ 1,010 mls @ 60 mls/hr 10/26/19 14:19 10/27/19 06:41 Dextrose IVPB Not Given Q16H TING Metoprolol Tartrate 25 mg 10/25/19 12:45 10/27/19 11:40 Lopressor - PO 25 mg BID TING Administration Ondansetron HCl 4 mg 10/23/19 17:42 Zofran Injection IVPUSH Q6H PRN NAUSEA AND/OR VOMITING Pantoprazole Sodium 20 mg 10/24/19 10:00 10/27/19 11:41 Protonix - PO 20 mg DAILY TING Administration Potassium Phos/Sodium Phos 1 packet 10/26/19 22:00 10/27/19 11:40 Phos-Nak Packet - PO 10/28/19 10:01 1 packet BID TING Administration 1. CHAVA 2. CKD 3. Suspected GI Bleed 4. Acute on chronic anemia 5. Hypernatremia 6. Leukocytosis 7. Hypokalemia 8. Hypophosphatemia 9. Hypomagnesemia Plan - decrease rate of d5w - d/c potassium from fluids as potassium is rising - repeat labs in am - check mag and phos
--- NOTE | 2019-10-27 13:08 | PN ---
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 A large periduodenal collection likely to be a diverticulum rather than an abscess - Current Medication List Current Medications: Active Medications Fentanyl (Sublimaze Injection -) 25 mcg IVPUSH [id number] PRN PRN Reason: PAIN-PACU ORDER X 4 DOSES ONLY Last Admin: 10/23/19 17:30 Dose: 25 mcg Documented by: Fluphenazine HCl (Prolixin) 1 mg PO TID [facility] Last Admin: 10/27/19 06:36 Dose: 1 mg Documented by: Ceftriaxone Sodium 1 gm/ (Dextrose) 50 mls @ 100 mls/hr IVPB DAILY [facility]; Protocol Last Admin: 10/27/19 09:04 Dose: 100 mls/hr Documented by: Dextrose (D5w -) 1,000 mls @ 40 mls/hr IV .[id number] [facility] Metoprolol Tartrate (Lopressor -) 25 mg PO BID [facility] Last Admin: 10/27/19 11:40 Dose: 25 mg Documented by: Ondansetron HCl (Zofran Injection) 4 mg IVPUSH Q6H PRN PRN Reason: NAUSEA AND/OR VOMITING Pantoprazole Sodium (Protonix -) 20 mg PO DAILY [facility] Last Admin: 10/27/19 11:41 Dose: 20 mg Documented by: Potassium Phos/Sodium Phos (Phos-Nak Packet -) 1 packet PO BID [facility] Stop: 10/28/19 10:01 Last Admin: 10/27/19 11:40 Dose: 1 packet Documented by: - Objective Vital Signs: Vital Signs Temperature 97.7 F 10/27/19 10:00 Pulse Rate 62 10/27/19 10:00 Respiratory Rate 18 10/27/19 10:00 Blood Pressure 129/57 L 10/27/19 10:00 O2 Sat by Pulse Oximetry (%) 98 10/27/19 10:00 Constitutional: Yes: Well Nourished, No Distress, Calm Cardiovascular: Yes: Regular Rate and Rhythm Respiratory: Yes: Regular, CTA Bilaterally Gastrointestinal: Yes: Normal Bowel Sounds, Soft Genitourinary: Yes: Perdomo Present Musculoskeletal: Yes: WNL, Muscle Weakness Extremities: Yes: WNL Edema: No Peripheral Pulses WNL: Yes Neurological: Yes: Alert, Pre-Existing Deficit Psychiatric: Yes: Alert Labs: CBC, BMP 10/26/19 06:40 10/27/19 06:00 INR, PTT INR 1.26 (0.83-1.09) H 10/19/19 17:35 Problem List - Problems (1) Abdominal pain Assessment/Plan: -resolved -GI on board -MRCP: reveals air in the CBD 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 A large periduodenal collection likely to be a diverticulum rather than an abscess. -Choledochoscopy or perhaps EUS= risk vs benefit to be determined by GI -Continue PPI -Continue full liquid diet Problems reviewed: Yes Code(s): R10.9 - UNSPECIFIED ABDOMINAL PAIN (2) Acute cholecystitis Assessment/Plan: as above Problems reviewed: Yes Code(s): K81.0 - ACUTE CHOLECYSTITIS (3) Anemia Assessment/Plan: -likely 2/2 to acute GI bleed -VALENCIA -Injectafer x 1 -Ferrous sulfate 1 tab po daily -Colace 300 mg po HS to avoid constipation -Transfuse if Hg<7.0 to avoid fluid overload -Maintaining stable H/H Problems reviewed: Yes Code(s): D64.9 - ANEMIA, UNSPECIFIED (4) Arrhythmia Assessment/Plan: -Tele monitor -Seen by Cardiology -Continue Lopressor 25 mg po bid -Electrolyte imbalance resolved Problems reviewed: Yes Code(s): I49.9 - CARDIAC ARRHYTHMIA, UNSPECIFIED (5) GI bleed Assessment/Plan: -GI on board -H/H stable -No melana or hematochezia -Colonoscopy if continue bleed or H/H drops Problems reviewed: Yes Code(s): K92.2 - GASTROINTESTINAL HEMORRHAGE, UNSPECIFIED (6) Hypoalbuminemia Assessment/Plan: -Add prosource bid -Add ensure enlive -Add magic cup -Added multivitamin po daily Problems reviewed: Yes Code(s): E88.09 - OTH DISORDERS OF PLASMA-PROTEIN METABOLISM, NEC (7) Hypokalemia Assessment/Plan: -resolved -monitor trend Problems reviewed: Yes Code(s): E87.6 - HYPOKALEMIA (8) Metabolic encephalopathy Problems reviewed: Yes Code(s): G93.41 - METABOLIC ENCEPHALOPATHY (9) Urinary retention Assessment/Plan: -Perdomo in place -Start Tamsulosin -Voiding trial in 2 days -Consider changing Fluphenazine- can lead to urinary retention and cholestatic jaundice-will consult Psych Code(s): R33.9 - RETENTION OF URINE, UNSPECIFIED (10) Acute kidney injury Assessment/Plan: -likely 2/2 to urinary retention -Perdomo cath -Tamsulosin 0.4 mg po daily -Voiding trial on Tuesday -Seen by nephrology -No UC was done, if continues to retain may consider doing UC, pt is already on IV abx Problems reviewed: Yes Code(s): N17.9 - ACUTE KIDNEY FAILURE, UNSPECIFIED (11) Altered mental status Problems reviewed: Yes Code(s): R41.82 - ALTERED MENTAL STATUS, UNSPECIFIED Qualifiers: Altered mental status type: disorientation Qualified Code(s): R41.0 - Disorientation, unspecified Assessment/Plan See problem list
[2019-10-27] MEDS ORDERED: DEXTROSE 5%-WATER - 1,000 ML IV SCH (13:15)
[2019-10-27] MEDS: DEXTROSE 5%-WATER - 1,000 ML IV SCH (13:29)
--- NOTE | 2019-10-27 17:02 | PN.GI ---
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 A large periduodenal collection appears to be a diverticulum rather than an abscess in which case the patient would appear much sicker and have positive blood culture s. Will check CRP. NO overt bleeding overnight - Objective Vital Signs: Vital Signs Temperature 98.5 F 10/27/19 14:00 Pulse Rate 72 10/27/19 14:00 Respiratory Rate 18 10/27/19 14:00 Blood Pressure 115/61 10/27/19 14:00 O2 Sat by Pulse Oximetry (%) 98 10/27/19 10:00 Laboratory Tests 10/22/19 10/25/19 10/26/19 17:35 12:45 06:40 WBC 16.5 H 9.7 Total Bilirubin AST ALT Alkaline Phosphatase COVID-19 (LENCHO) Not detected 10/27/19 06:00 WBC Total Bilirubin 0.6 AST 11 L ALT 9 L Alkaline Phosphatase 57 COVID-19 (LENCHO) Constitutional: No Distress ...Auscultate: Yes: Normoactive Bowel Sounds ...Palpate: Yes: Soft, Other (nontender) Labs: CBC, BMP 10/26/19 06:40 10/27/19 06:00 INR, PTT INR 1.26 (0.83-1.09) H 10/19/19 17:35 Assessment/Plan IMpression: - 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 associated with a diverticulum with recent stone passage but no residual CBD stones on MRCP -Bleeding has subsided Plan: -- This could be more thoroughly investigated by choledochoscopy or perhaps EUS but given the patient's comorbidities and clinical situation this may be reserved for signs of cholangitis or an abscess in this area -- Dr Mayberry will determine whether or not to pursue these and colonoscopy when he returns 10/28 Problem List - Problems (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
[2019-10-28 07:49] LABS: BILIRUBIN,TOTAL 0.2 mg/dL (0.2-1); BLOOD UREA NITROGEN 6.7 mg/dL (7-18); CALCIUM 7.9 mg/dL (8.5-10.1); CREATININE 0.7 mg/dL (0.55-1.3); MAGNESIUM 1.9 mg/dL (1.8-2.4); PHOSPHOROUS 2.6 mg/dL (2.5-4.9); TOT PROT 4.8 g/dl (6.4-8.2)
--- NOTE | 2019-10-28 08:21 | PN ---
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 A large periduodenal collection likely to be a diverticulum rather than an abscess - Current Medication List Current Medications: Active Medications Fentanyl (Sublimaze Injection -) 25 mcg IVPUSH [id number] PRN PRN Reason: PAIN-PACU ORDER X 4 DOSES ONLY Last Admin: 10/23/19 17:30 Dose: 25 mcg Documented by: Fluphenazine HCl (Prolixin) 1 mg PO TID [facility] Last Admin: 10/28/19 06:16 Dose: 1 mg Documented by: Ceftriaxone Sodium 1 gm/ (Dextrose) 50 mls @ 100 mls/hr IVPB DAILY [facility]; Protocol Last Admin: 10/27/19 09:04 Dose: 100 mls/hr Documented by: Dextrose (D5w -) 1,000 mls @ 41.667 mls/hr IV Q24H [facility] Last Admin: 10/27/19 13:29 Dose: 41.667 mls/hr Documented by: Metoprolol Tartrate (Lopressor -) 25 mg PO BID [facility] Last Admin: 10/27/19 21:59 Dose: Not Given Documented by: Ondansetron HCl (Zofran Injection) 4 mg IVPUSH Q6H PRN PRN Reason: NAUSEA AND/OR VOMITING Pantoprazole Sodium (Protonix -) 20 mg PO DAILY [facility] Last Admin: 10/27/19 11:41 Dose: 20 mg Documented by: Potassium Phos/Sodium Phos (Phos-Nak Packet -) 1 packet PO BID [facility] Stop: 10/28/19 10:01 Last Admin: 10/27/19 22:00 Dose: Not Given Documented by: - Objective Vital Signs: Vital Signs Temperature 98 F 10/28/19 06:00 Pulse Rate 98 H 10/28/19 06:00 Respiratory Rate 18 10/28/19 06:00 Blood Pressure 114/60 10/28/19 06:00 O2 Sat by Pulse Oximetry (%) 97 10/28/19 02:00 Constitutional: Yes: Well Nourished, No Distress, Calm Cardiovascular: Yes: Regular Rate and Rhythm Respiratory: Yes: Regular, CTA Bilaterally Gastrointestinal: Yes: Normal Bowel Sounds, Soft Genitourinary: Yes: Perdomo Present Musculoskeletal: Yes: Muscle Weakness Edema: No Peripheral Pulses WNL: Yes Neurological: Yes: Alert, Confusion Psychiatric: Yes: Alert Labs: CBC, BMP 10/26/19 06:40 10/28/19 05:45 INR, PTT INR 1.26 (0.83-1.09) H 10/19/19 17:35 Problem List - Problems (1) Urinary retention Assessment/Plan: -Perdomo in place -Start Tamsulosin -Voiding trial in 2 days -Consider changing Fluphenazine- can lead to urinary retention and cholestatic jaundice-will consult Psych Problems reviewed: Yes Code(s): R33.9 - RETENTION OF URINE, UNSPECIFIED (2) Abdominal pain Assessment/Plan: -resolved -GI on board -MRCP: reveals air in the CBD 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 A large periduodenal collection likely to be a diverticulum rather than an abscess. -Choledochoscopy or perhaps EUS= risk vs benefit to be determined by GI -Continue PPI -Continue full liquid diet Problems reviewed: Yes Code(s): R10.9 - UNSPECIFIED ABDOMINAL PAIN (3) Acute cholecystitis Assessment/Plan: as above Problems reviewed: Yes Code(s): K81.0 - ACUTE CHOLECYSTITIS (4) Anemia Assessment/Plan: -likely 2/2 to acute GI bleed -VALENCIA -Injectafer x 1 -Ferrous sulfate 1 tab po daily -Colace 300 mg po HS to avoid constipation -Transfuse if Hg<7.0 to avoid fluid overload -Maintaining stable H/H Problems reviewed: Yes Code(s): D64.9 - ANEMIA, UNSPECIFIED (5) GI bleed Assessment/Plan: -GI on board -H/H stable -No melana or hematochezia -Colonoscopy if continue bleed or H/H drops Problems reviewed: Yes Code(s): K92.2 - GASTROINTESTINAL HEMORRHAGE, UNSPECIFIED (6) Hypokalemia Assessment/Plan: -resolved -monitor trend Problems reviewed: Yes Code(s): E87.6 - HYPOKALEMIA (7) Arrhythmia Assessment/Plan: -Tele monitor -Seen by Cardiology -Continue Lopressor 25 mg po bid -Electrolyte imbalance resolved Problems reviewed: Yes Code(s): I49.9 - CARDIAC ARRHYTHMIA, UNSPECIFIED (8) Acute kidney injury Assessment/Plan: -likely 2/2 to urinary retention -Perdomo cath -Tamsulosin 0.4 mg po daily -Voiding trial on Tuesday -Seen by nephrology -No UC was done, if continues to retain may consider doing UC, pt is already on IV abx Problems reviewed: Yes Code(s): N17.9 - ACUTE KIDNEY FAILURE, UNSPECIFIED (9) Metabolic encephalopathy Problems reviewed: Yes Code(s): G93.41 - METABOLIC ENCEPHALOPATHY (10) Hypoalbuminemia Assessment/Plan: -Add prosource bid -Add ensure enlive -Add magic cup -Added multivitamin po daily Problems reviewed: Yes Code(s): E88.09 - OTH DISORDERS OF PLASMA-PROTEIN METABOLISM, NEC (11) Altered mental status Problems reviewed: Yes Code(s): R41.82 - ALTERED MENTAL STATUS, UNSPECIFIED Qualifiers: Altered mental status type: disorientation Qualified Code(s): R41.0 - Disorientation, unspecified Assessment/Plan See problem list Physical therapy SNF GI ppx
[2019-10-28] MEDS ORDERED: DEXTROSE 5%-WATER - 50 ML IVPB ONE (09:08)
[2019-10-28] MEDS ORDERED: cefTRIAXone SODIUM 1 GM VIAL ONE (09:08)
[2019-10-28] MEDS: PANTOPRAZOLE 20 MG TABLET PO SCH (09:26)
[2019-10-28] MEDS: METOPROLOL TARTRATE 25 MG TABLET (FP) PO SCH ×2 (09:26→21:07)
[2019-10-28] MEDS: CEFTRIAXONE 1 GM in DEXTROSE 5%-WATER - 50 ML IVPB SCH (09:26)
[2019-10-28] MEDS: NAPH,MB-DB/K PH,MBDB POWDER PACKET PO SCH (09:26)
[2019-10-28] MEDS: DEXTROSE 5%-WATER - 1,000 ML IV SCH ×2 (11:05→13:50)
[2019-10-28] MEDS ORDERED: PT OWN MED DRAWER 7, Y5N ONE ×2 (13:35→20:24)
--- NOTE | 2019-10-28 13:55 | PN ---
Progress Note, Physician History of Present Illness: Pt seen and examined at bedside. She has no complaints. - Current Medication List Current Medications: Active Medications Fentanyl (Sublimaze Injection -) 25 mcg IVPUSH [id number] PRN PRN Reason: PAIN-PACU ORDER X 4 DOSES ONLY Last Admin: 10/23/19 17:30 Dose: 25 mcg Documented by: Fluphenazine HCl (Prolixin) 1 mg PO TID [facility] Last Admin: 10/28/19 06:16 Dose: 1 mg Documented by: Ceftriaxone Sodium 1 gm/ (Dextrose) 50 mls @ 100 mls/hr IVPB DAILY [facility]; Protocol Last Admin: 10/28/19 09:26 Dose: 100 mls/hr Documented by: Dextrose (D5w -) 1,000 mls @ 41.667 mls/hr IV Q24H [facility] Last Admin: 10/28/19 11:05 Dose: 41.667 mls/hr Documented by: Metoprolol Tartrate (Lopressor -) 25 mg PO BID [facility] Last Admin: 10/28/19 09:26 Dose: 25 mg Documented by: Ondansetron HCl (Zofran Injection) 4 mg IVPUSH Q6H PRN PRN Reason: NAUSEA AND/OR VOMITING Pantoprazole Sodium (Protonix -) 20 mg PO DAILY [facility] Last Admin: 10/28/19 09:26 Dose: 20 mg Documented by: - Objective Vital Signs: Vital Signs Temperature 98.3 F 10/28/19 09:00 Pulse Rate 107 H 10/28/19 09:00 Respiratory Rate 20 10/28/19 09:00 Blood Pressure 123/71 10/28/19 09:00 O2 Sat by Pulse Oximetry (%) 97 10/28/19 09:00 Constitutional: Yes: Calm Eyes: Yes: Conjunctiva Clear HENT: Yes: Atraumatic Neck: Yes: Supple Cardiovascular: Yes: S1, S2 Respiratory: Yes: CTA Bilaterally Gastrointestinal: Yes: Normal Bowel Sounds, Soft Genitourinary: Yes: Perdomo Present Musculoskeletal: Yes: WNL Edema: No Neurological: Yes: Oriented Psychiatric: Yes: Oriented Labs: CBC, BMP 10/26/19 06:40 10/28/19 05:45 INR, PTT INR 1.26 (0.83-1.09) H 10/19/19 17:35 Assessment/Plan Current Medications Generic Name Dose Route Start Last Admin Trade Name Susan PRN Reason Stop Dose Admin Fentanyl 25 mcg 10/23/19 17:42 10/23/19 17:30 Sublimaze Injection - IVPUSH 25 mcg [id number] PRN Administration PAIN-PACU ORDER X 4 DOSES ONLY Fluphenazine HCl 1 mg 10/21/19 22:00 10/28/19 13:50 Prolixin PO 1 mg TID [facility]ING Administration Ceftriaxone Sodium 1 gm/ 50 mls @ 100 mls/hr 10/24/19 10:00 10/28/19 09:26 Dextrose IVPB 100 mls/hr DAILY [facility] Administration Protocol Dextrose 1,000 mls @ 41.667 mls/hr 10/27/19 13:15 10/28/19 13:50 D5w - IV Not Given Q24H [facility]ING Metoprolol Tartrate 25 mg 10/25/19 12:45 10/28/19 09:26 Lopressor - PO 25 mg BID TING Administration Ondansetron HCl 4 mg 10/23/19 17:42 Zofran Injection IVPUSH Q6H PRN NAUSEA AND/OR VOMITING Pantoprazole Sodium 20 mg 10/24/19 10:00 10/28/19 09:26 Protonix - PO 20 mg DAILY TING Administration Laboratory Tests 10/28/19 05:45 Phosphorus 2.6 Magnesium 1.9 1. CHAVA 2. CKD 3. Suspected GI Bleed 4. Acute on chronic anemia 5. Hypernatremia 6. Leukocytosis 7. Hypokalemia 8. Hypophosphatemia 9. Hypomagnesemia Plan - cont d5w for now - repeat labs in am - encourage po intake - pt tolerating clears - gi follow up
[2019-10-28] MEDS ORDERED: FERRIC CARBOXYMALTOSE 750 MG in SODIUM CHLORIDE 250 ML IVPB ONE (21:15)
[2019-10-28] MEDS: DOCUSATE SODIUM 100 MG CAPSULE (FP) PO SCH (22:11)
[2019-10-29 07:05] LABS: BASO % 0.2 % (0-2.0); EOS % 1.7 % (0-4.5); HEMATOCRIT 27.7 % (32.4-45.2); HEMOGLOBIN 9.1 GM/dL (10.7-15.3); LYMPH % 14.2 % (8-40); MCH 29.3 pg (25.7-33.7); MCHC 32.8 g/dl (32.0-36.0); MEAN CELL VOLUME 89.5 fl (80-96); MEAN PLT VOLUME 8.9 fl (7.5-11.1); MONO % 8.8 % (3.8-10.2); NEUT % 75.1 % (42.8-82.8); PLATELET COUNT 199 K/MM3 (134-434); RDW 15.3 % (11.6-15.6); WHITE BLOOD COUNT 8.4 K/mm3 (4.0-10.0)
[2019-10-29 07:27] LABS: ALBUMIN 1.8 g/dl (3.4-5.0); BILIRUBIN,TOTAL 0.3 mg/dL (0.2-1); BLOOD UREA NITROGEN 5.6 mg/dL (7-18); CREATININE 0.7 mg/dL (0.55-1.3); POTASSIUM 3.9 mmol/L (3.5-5.1); TOT PROT 4.6 g/dl (6.4-8.2)
--- NOTE | 2019-10-29 08:19 | PN ---
Progress Note, Physician - Current Medication List Current Medications: Active Medications Amino Acids (Prosource No Carb Liquid Pkt) 30 ml PO BID@0800,1730 [facility] Docusate Sodium (Colace -) 300 mg PO HS [facility] Last Admin: 10/28/19 22:11 Dose: Not Given Documented by: Fentanyl (Sublimaze Injection -) 25 mcg IVPUSH [id number] PRN PRN Reason: PAIN-PACU ORDER X 4 DOSES ONLY Last Admin: 10/23/19 17:30 Dose: 25 mcg Documented by: Ferrous Sulfate (Feosol -) 325 mg PO DAILY@729 [facility] Fluphenazine HCl (Prolixin) 1 mg PO TID [facility] Last Admin: 10/29/19 06:09 Dose: 1 mg Documented by: Ceftriaxone Sodium 1 gm/ (Dextrose) 50 mls @ 100 mls/hr IVPB DAILY [facility]; Protocol Last Admin: 10/28/19 09:26 Dose: 100 mls/hr Documented by: Dextrose (D5w -) 1,000 mls @ 41.667 mls/hr IV Q24H [facility] Last Admin: 10/28/19 13:50 Dose: Not Given Documented by: Metoprolol Tartrate (Lopressor -) 25 mg PO BID [facility] Last Admin: 10/28/19 21:07 Dose: 25 mg Documented by: Multivitamins/Minerals/Vitamin C (Tab-A-Vit -) 1 tab PO DAILY [facility] Ondansetron HCl (Zofran Injection) 4 mg IVPUSH Q6H PRN PRN Reason: NAUSEA AND/OR VOMITING Pantoprazole Sodium (Protonix -) 40 mg PO DAILY [facility] Tamsulosin HCl (Flomax -) 0.4 mg PO DAILY@829 [facility] - Objective Vital Signs: Vital Signs Temperature 97.8 F 10/29/19 06:00 Pulse Rate 86 10/29/19 06:00 Respiratory Rate 18 10/29/19 06:00 Blood Pressure 115/62 10/29/19 06:00 O2 Sat by Pulse Oximetry (%) 94 L 10/29/19 06:00 Cardiovascular: Yes: S1, S2 Respiratory: Yes: Regular, CTA Bilaterally Gastrointestinal: Yes: Normal Bowel Sounds, Soft. No: Tenderness Labs: CBC, BMP 10/29/19 06:28 10/29/19 06:28 INR, PTT INR 1.26 (0.83-1.09) H 10/19/19 17:35 Problem List - Problems (1) Anemia Code(s): D64.9 - ANEMIA, UNSPECIFIED (2) Elevated troponin I level Code(s): R79.89 - OTHER SPECIFIED ABNORMAL FINDINGS OF BLOOD CHEMISTRY (3) Acute cholecystitis Code(s): K81.0 - ACUTE CHOLECYSTITIS (4) GI bleed Code(s): K92.2 - GASTROINTESTINAL HEMORRHAGE, UNSPECIFIED (5) Altered mental status Code(s): R41.82 - ALTERED MENTAL STATUS, UNSPECIFIED Qualifiers: Altered mental status type: disorientation Qualified Code(s): R41.0 - Disorientation, unspecified (6) Dementia Code(s): F03.90 - UNSPECIFIED DEMENTIA WITHOUT BEHAVIORAL DISTURBANCE Qualifiers: Dementia type: Alzheimer's disease Alzheimer's disease onset: unspecified onset Dementia behavioral disturbance: without behavioral disturbance Qualified Code(s): G30.9 - Alzheimer's disease, unspecified; F02.80 - Dementia in other diseases classified elsewhere without behavioral disturbance (7) Hypokalemia Code(s): E87.6 - HYPOKALEMIA (8) Acute kidney injury Code(s): N17.9 - ACUTE KIDNEY FAILURE, UNSPECIFIED (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 W/O PERFORATION OR ABSCESS W/O BLEEDING (10) Arrhythmia Code(s): I49.9 - CARDIAC ARRHYTHMIA, UNSPECIFIED Assessment/Plan - Problems (1) Urinary retention Assessment/Plan: -Perdomo in place -Start Tamsulosin -Voiding trial in 2 days -Consider changing Fluphenazine- can lead to urinary retention and cholestatic jaundice-will consult Psych Problems reviewed: Yes Code(s): R33.9 - RETENTION OF URINE, UNSPECIFIED (2) Abdominal pain Assessment/Plan: -resolved -GI on board -MRCP: 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 -Choledochoscopy or perhaps EUS= risk vs benefit to be determined by GIs. -Continue PPI -Continue full liquid diet-Advance Per GI Problems reviewed: Yes Code(s): R10.9 - UNSPECIFIED ABDOMINAL PAIN (3) Acute cholecystitis Assessment/Plan: as above Problems reviewed: Yes Code(s): K81.0 - ACUTE CHOLECYSTITIS (4) Anemia Assessment/Plan: -likely 2/2 to acute GI bleed -VALENCIA -Injectafer x 1 -Ferrous sulfate 1 tab po daily -Colace 300 mg po HS to avoid constipation -Transfuse if Hg<7.0 to avoid fluid overload -Maintaining stable H/H Problems reviewed: Yes Code(s): D64.9 - ANEMIA, UNSPECIFIED (5) GI bleed Assessment/Plan: -GI on board -H/H stable -No melana or hematochezia -Colonoscopy if continue bleed or H/H drops --PER GI Problems reviewed: Yes Code(s): K92.2 - GASTROINTESTINAL HEMORRHAGE, UNSPECIFIED (6) Hypokalemia Assessment/Plan: -resolved -monitor trend Problems reviewed: Yes Code(s): E87.6 - HYPOKALEMIA (7) Arrhythmia Assessment/Plan: -Tele monitor -Seen by Cardiology -Continue Lopressor 25 mg po bid -Electrolyte imbalance resolved Problems reviewed: Yes Code(s): I49.9 - CARDIAC ARRHYTHMIA, UNSPECIFIED (8) Acute kidney injury Assessment/Plan: -likely 2/2 to urinary retention -Perdomo cath -Tamsulosin 0.4 mg po daily -Voiding trial on Tuesday -Seen by nephrology -No UC was done, if continues to retain may consider doing UC, pt is already on IV abx Problems reviewed: Yes Code(s): N17.9 - ACUTE KIDNEY FAILURE, UNSPECIFIED (9) Metabolic encephalopathy Problems reviewed: Yes Code(s): G93.41 - METABOLIC ENCEPHALOPATHY (10) Hypoalbuminemia Assessment/Plan: -Add prosource bid -Add ensure enlive -Add magic cup -Added multivitamin po daily Problems reviewed: Yes Code(s): E88.09 - OTH DISORDERS OF PLASMA-PROTEIN METABOLISM, NEC (11) Altered mental status Problems reviewed: Yes Code(s): R41.82 - ALTERED MENTAL STATUS, UNSPECIFIED Qualifiers: Altered mental status type: disorientation Qualified Code(s): R41.0 - Disorientation, unspecified DC PLANNING
[2019-10-29] MEDS ORDERED: PT OWN MED DRAWER 7, Y5N ONE (09:51)
[2019-10-29] MEDS ORDERED: cefTRIAXone SODIUM 1 GM VIAL ONE (09:51)
[2019-10-29] MEDS ORDERED: DEXTROSE 5%-WATER - 50 ML IVPB ONE (09:51)
[2019-10-29] MEDS: MULTIVITAMINS (DAILY MVI) TABLET (FP) PO SCH (10:23)
[2019-10-29] MEDS: CEFTRIAXONE 1 GM in DEXTROSE 5%-WATER - 50 ML IVPB SCH (10:23)
[2019-10-29] MEDS: AMINO ACIDS/PROTEIN HYDROLYS 30 ML LIQUID.PKT PO SCH ×2 (10:23→18:43)
[2019-10-29] MEDS: TAMSULOSIN HCL 0.4 MG CAP PO SCH (10:23)
[2019-10-29] MEDS: PANTOPRAZOLE 40 MG TABLET PO SCH (10:23)
[2019-10-29] MEDS: FERROUS SO4 325 MG TABLET (FP) PO SCH (10:23)
[2019-10-29] MEDS: METOPROLOL TARTRATE 25 MG TABLET (FP) PO SCH ×2 (10:23→21:17)
--- NOTE | 2019-10-29 11:27 | PN ---
Progress Note (short form) - Note Progress Note: Refused exam today, stated that she just weanted to sleep Noted MRI reading from weekend Ms. Holder not acting as though she has an intraabdominal abscess. Suspect that it refl;ects a diverticulum, possiblyt communicating with gallbladder. Will order UGIS to help clarify Surgical follow-up Called nephew x 2 last week to discuss case. No call back as of yet. 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
--- NOTE | 2019-10-29 11:55 | CON.PSY ---
Psychiatry Consult Chief Complaint: 84 Year old female witha History of DEmenmtia with? Psychosi admitted from [facility] Rectal bleeding. Patient is on Fluphenazine 1mg po tid. Symptoms: reports: Memory Impairment - Previous Psychiatric Treatment Outpatient: None Inpatient: None - Previous Substance Abuse Treatment Outpatient: None Inpatient: None - Current Medications Current Medications: Active Medications Amino Acids (Prosource No Carb Liquid Pkt) 30 ml PO BID@0800,1730 [facility] Last Admin: 10/29/19 10:23 Dose: 30 ml Documented by: Docusate Sodium (Colace -) 300 mg PO HS [facility] Last Admin: 10/28/19 22:11 Dose: Not Given Documented by: Fentanyl (Sublimaze Injection -) 25 mcg IVPUSH [id number] PRN PRN Reason: PAIN-PACU ORDER X 4 DOSES ONLY Last Admin: 10/23/19 17:30 Dose: 25 mcg Documented by: Ferrous Sulfate (Feosol -) 325 mg PO DAILY@0730 [facility] Last Admin: 10/29/19 10:23 Dose: 325 mg Documented by: Ceftriaxone Sodium 1 gm/ (Dextrose) 50 mls @ 100 mls/hr IVPB DAILY [facility]; Protocol Last Admin: 10/29/19 10:23 Dose: 100 mls/hr Documented by: Dextrose (D5w -) 1,000 mls @ 41.667 mls/hr IV Q24H [facility] Last Admin: 10/28/19 13:50 Dose: Not Given Documented by: Metoprolol Tartrate (Lopressor -) 25 mg PO BID [facility] Last Admin: 10/29/19 10:23 Dose: 25 mg Documented by: Multivitamins/Minerals/Vitamin C (Tab-A-Vit -) 1 tab PO DAILY [facility] Last Admin: 10/29/19 10:23 Dose: 1 tab Documented by: Ondansetron HCl (Zofran Injection) 4 mg IVPUSH Q6H PRN PRN Reason: NAUSEA AND/OR VOMITING Pantoprazole Sodium (Protonix -) 40 mg PO DAILY [facility] Last Admin: 10/29/19 10:23 Dose: 40 mg Documented by: Tamsulosin HCl (Flomax -) 0.4 mg PO DAILY@0830 [facility] Last Admin: 10/29/19 10:23 Dose: 0.4 mg Documented by: - Allergies Allergies: Allergies Allergy/AdvReac Type Severity Reaction Status Date / Time Penicillins Allergy Rash Verified 06/10/17 16:48 Pollen Allergy Mild Uncoded 06/10/17 16:48 - Current Living Status Usual Living Arrangement: Half-Way - Current Mental Status Evaluation Appearance: Well Groomed Attitude: Cooperative - Affect Affect: Constrictive Appropriateness: Not Appropriate - Mood Mood: Euthymic - Speech/Language Expressive: Delayed - Psychomotor Activity Psychomotor Activity: Normal - Thought Process Thought Process: Circumstantial - Thought Content Hallucinations: Absent Delusions: Absent - Self Perception Self Perception: No Impairment - Cognition Attention: Diminished Orientation: Time, Person, Place Memory, Immediate Recall: Impaired Memory, Short Term: 1/3 Memory, Remote with Promptin/3 - Concentration Serial Sevens Intact: No Simple Calculations Intact: No - Abstraction Proverb Interpretation: [place] Judgement: Minimally Impaired - Insight Insight: Impaired - Impulse Control Impulse Control: Good Control - Suicidal Ideation Suicidal Ideation: No - Homicidal Ideation Homicidal Ideation: No Assessment/Plan 1) Agree will d/c Fluphenazine. 2)_ Seroquel 25 mg po hs.
[2019-10-29] MEDS: DEXTROSE 5%-WATER - 1,000 ML IV SCH (13:50)
--- NOTE | 2019-10-29 15:23 | PN ---
Progress Note, Physician History of Present Illness: Pt seen and examined at bedside. She is awake and alert. She has poor po intake. - Current Medication List Current Medications: Active Medications Amino Acids (Prosource No Carb Liquid Pkt) 30 ml PO BID@0800,1730 [facility] Last Admin: 10/29/19 10:23 Dose: 30 ml Documented by: Docusate Sodium (Colace -) 300 mg PO [facility] Last Admin: 10/28/19 22:11 Dose: Not Given Documented by: Fentanyl (Sublimaze Injection -) 25 mcg IVPUSH [id number] PRN PRN Reason: PAIN-PACU ORDER X 4 DOSES ONLY Last Admin: 10/23/19 17:30 Dose: 25 mcg Documented by: Ferrous Sulfate (Feosol -) 325 mg PO DAILY@729 [facility] Last Admin: 10/29/19 10:23 Dose: 325 mg Documented by: Ceftriaxone Sodium 1 gm/ (Dextrose) 50 mls @ 100 mls/hr IVPB DAILY [facility]; Protocol Last Admin: 10/29/19 10:23 Dose: 100 mls/hr Documented by: Dextrose (D5w -) 1,000 mls @ 41.667 mls/hr IV Q24H [facility] Last Admin: 10/28/19 13:50 Dose: Not Given Documented by: Metoprolol Tartrate (Lopressor -) 25 mg PO BID [facility] Last Admin: 10/29/19 10:23 Dose: 25 mg Documented by: Multivitamins/Minerals/Vitamin C (Tab-A-Vit -) 1 tab PO DAILY [facility] Last Admin: 10/29/19 10:23 Dose: 1 tab Documented by: Ondansetron HCl (Zofran Injection) 4 mg IVPUSH Q6H PRN PRN Reason: NAUSEA AND/OR VOMITING Pantoprazole Sodium (Protonix -) 40 mg PO DAILY [facility] Last Admin: 10/29/19 10:23 Dose: 40 mg Documented by: Quetiapine Fumarate (Seroquel -) 25 mg PO [facility] Tamsulosin HCl (Flomax -) 0.4 mg PO DAILY@30 [facility] Last Admin: 10/29/19 10:23 Dose: 0.4 mg Documented by: - Objective Vital Signs: Vital Signs Temperature 98.5 F 10/29/19 10:00 Pulse Rate 90 10/29/19 10:00 Respiratory Rate 18 10/29/19 10:00 Blood Pressure 130/63 10/29/19 10:00 O2 Sat by Pulse Oximetry (%) 95 10/29/19 10:00 Constitutional: Yes: Calm Eyes: Yes: Conjunctiva Clear HENT: Yes: Atraumatic Neck: Yes: Supple Cardiovascular: Yes: S1, S2 Respiratory: Yes: CTA Bilaterally Gastrointestinal: Yes: Soft Genitourinary: Yes: WNL Musculoskeletal: Yes: WNL Edema: No Neurological: Yes: Oriented Labs: CBC, BMP 10/29/19 06:28 10/29/19 06:28 INR, PTT INR 1.26 (0.83-1.09) H 10/19/19 17:35 Assessment/Plan Current Medications Generic Name Dose Route Start Last Admin Trade Name Freq PRN Reason Stop Dose Admin Amino Acids 30 ml 10/29/19 08:00 10/29/19 10:23 Prosource No Carb Liquid Pkt PO 30 ml BID@0800,1730 [facility] Administration Docusate Sodium 300 mg 10/28/19 22:00 10/28/19 22:11 Colace - PO Not Given HS [facility] Fentanyl 25 mcg 10/23/19 17:42 10/23/19 17:30 Sublimaze Injection - IVPUSH 25 mcg [id number] PRN Administration PAIN-PACU ORDER X 4 DOSES ONLY Ferrous Sulfate 325 mg 10/29/19 07:30 10/29/19 10:23 Feosol - PO 325 mg DAILY@0730 [facility] Administration Ceftriaxone Sodium 1 gm/ 50 mls @ 100 mls/hr 10/24/19 10:00 10/29/19 10:23 Dextrose IVPB 100 mls/hr DAILY [facility] Administration Protocol Dextrose 1,000 mls @ 41.667 mls/hr 10/27/19 13:15 10/28/19 13:50 D5w - IV Not Given Q24H [facility] Metoprolol Tartrate 25 mg 10/25/19 12:45 10/29/19 10:23 Lopressor - PO 25 mg BID [facility] Administration Multivitamins/Minerals/Vitamin C 1 tab 10/29/19 10:00 10/29/19 10:23 Tab-A-Vit - PO 1 tab DAILY [facility] Administration Ondansetron HCl 4 mg 10/23/19 17:42 Zofran Injection IVPUSH Q6H PRN NAUSEA AND/OR VOMITING Pantoprazole Sodium 40 mg 10/29/19 10:00 10/29/19 10:23 Protonix - PO 40 mg DAILY [facility] Administration Quetiapine Fumarate 25 mg 10/29/19 22:00 Seroquel - PO HS [facility] Tamsulosin HCl 0.4 mg 10/29/19 08:30 10/29/19 10:23 Flomax - PO 0.4 mg DAILY@0830 [facility] Administration 1. CHAVA 2. CKD 3. Suspected GI Bleed 4. Acute on chronic anemia 5. Hypernatremia 6. Leukocytosis 7. Hypokalemia 8. Hypophosphatemia 9. Hypomagnesemia Plan - will cont d5w - encourage po intake - pt now on full liquid diet - gi follow up
[2019-10-29] MEDS: QUEtiapine FUMARATE 25 MG TABLET PO SCH (21:18)
[2019-10-29] MEDS: DOCUSATE SODIUM 100 MG CAPSULE (FP) PO SCH (21:18)
--- NOTE | 2019-10-30 08:13 | PN ---
Progress Note, Physician - Current Medication List Current Medications: Active Medications Amino Acids (Prosource No Carb Liquid Pkt) 30 ml PO BID@0800,1730 [facility] Last Admin: 10/29/19 18:43 Dose: 30 ml Documented by: Docusate Sodium (Colace -) [address] [facility] Last Admin: 10/29/19 21:18 Dose: Not Given Documented by: Fentanyl (Sublimaze Injection -) 25 mcg IVPUSH [id number] PRN PRN Reason: PAIN-PACU ORDER X 4 DOSES ONLY Last Admin: 10/23/19 17:30 Dose: 25 mcg Documented by: Ferrous Sulfate (Feosol -) 325 mg PO DAILY@729 [facility] Last Admin: 10/29/19 10:23 Dose: 325 mg Documented by: Ceftriaxone Sodium 1 gm/ (Dextrose) 50 mls @ 100 mls/hr IVPB DAILY [facility]; Protocol Last Admin: 10/29/19 10:23 Dose: 100 mls/hr Documented by: Dextrose (D5w -) 1,000 mls @ 41.667 mls/hr IV Q24H [facility] Last Admin: 10/29/19 13:50 Dose: 41.667 mls/hr Documented by: Metoprolol Tartrate (Lopressor -) 25 mg PO BID [facility] Last Admin: 10/29/19 21:17 Dose: 25 mg Documented by: Multivitamins/Minerals/Vitamin C (Tab-A-Vit -) 1 tab PO DAILY [facility] Last Admin: 10/29/19 10:23 Dose: 1 tab Documented by: Ondansetron HCl (Zofran Injection) 4 mg IVPUSH Q6H PRN PRN Reason: NAUSEA AND/OR VOMITING Pantoprazole Sodium (Protonix -) 40 mg PO DAILY [facility] Last Admin: 10/29/19 10:23 Dose: 40 mg Documented by: Quetiapine Fumarate (Seroquel -) [address] [facility] Last Admin: 10/29/19 21:18 Dose: 25 mg Documented by: Tamsulosin HCl (Flomax -) 0.4 mg PO DAILY@829 [facility] Last Admin: 10/29/19 10:23 Dose: 0.4 mg Documented by: - Objective Vital Signs: Vital Signs Temperature 98.5 F 10/30/19 06:00 Pulse Rate 82 10/30/19 06:00 Respiratory Rate 18 10/30/19 06:00 Blood Pressure 120/57 L 10/30/19 06:00 O2 Sat by Pulse Oximetry (%) 95 10/30/19 06:00 Cardiovascular: Yes: S1, S2 Respiratory: Yes: Regular, CTA Bilaterally Gastrointestinal: Yes: Normal Bowel Sounds, Soft. No: Tenderness Labs: CBC, BMP 10/29/19 06:28 10/29/19 06:28 INR, PTT INR 1.26 (0.83-1.09) H 10/19/19 17:35 Problem List - Problems (1) Anemia Code(s): D64.9 - ANEMIA, UNSPECIFIED (2) Elevated troponin I level Code(s): R79.89 - OTHER SPECIFIED ABNORMAL FINDINGS OF BLOOD CHEMISTRY (3) Acute cholecystitis Code(s): K81.0 - ACUTE CHOLECYSTITIS (4) GI bleed Code(s): K92.2 - GASTROINTESTINAL HEMORRHAGE, UNSPECIFIED (5) Altered mental status Code(s): R41.82 - ALTERED MENTAL STATUS, UNSPECIFIED Qualifiers: Altered mental status type: disorientation Qualified Code(s): R41.0 - Diso rientation, unspecified (6) Dementia Code(s): F03.90 - UNSPECIFIED DEMENTIA WITHOUT BEHAVIORAL DISTURBANCE Qualifiers: Dementia type: Alzheimer's disease Alzheimer's disease onset: unspecified onset Dementia behavioral disturbance: without behavioral disturbance Qualified Code(s): G30.9 - Alzheimer's disease, unspecified; F02.80 - Dementia in other diseases classified elsewhere without behavioral disturbance (7) Hypokalemia Code(s): E87.6 - HYPOKALEMIA (8) Acute kidney injury Code(s): N17.9 - ACUTE KIDNEY FAILURE, UNSPECIFIED (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 W/O PERFORATION OR ABSCESS W/O BLEEDING (10) Arrhythmia Code(s): I49.9 - CARDIAC ARRHYTHMIA, UNSPECIFIED Assessment/Plan - Problems (1) Urinary retention Assessment/Plan: -Perdomo in place -Start Tamsulosin -Voiding trial in 2 days -Consider changing Fluphenazine- can lead to urinary retention and cholestatic jaundice-will consult Psych Problems reviewed: Yes Code(s): R33.9 - RETENTION OF URINE, UNSPECIFIED (2) Abdominal pain Assessment/Plan: -resolved -GI on board -MRCP: 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 -Continue PPI -Continue full liquid diet-Advance Per GI Problems reviewed: Yes Code(s): R10.9 - UNSPECIFIED ABDOMINAL PAIN (3) Acute cholecystitis Assessment/Plan: as above Problems reviewed: Yes Code(s): K81.0 - ACUTE CHOLECYSTITIS (4) Anemia Assessment/Plan: -likely 2/2 to acute GI bleed -VALENCIA -Injectafer x 1 -Ferrous sulfate 1 tab po daily -Colace 300 mg po HS to avoid constipation -Transfuse if Hg<7.0 to avoid fluid overload -Maintaining stable H/H Problems reviewed: Yes Code(s): D64.9 - ANEMIA, UNSPECIFIED (5) GI bleed Assessment/Plan: -GI on board -H/H stable -No melana or hematochezia -Colonoscopy if continue bleed or H/H drops --PER GI Problems reviewed: Yes Code(s): K92.2 - GASTROINTESTINAL HEMORRHAGE, UNSPECIFIED (6) Hypokalemia Assessment/Plan: -resolved -monitor trend Problems reviewed: Yes Code(s): E87.6 - HYPOKALEMIA (7) Arrhythmia Assessment/Plan: -Tele monitor -Seen by Cardiology -Continue Lopressor 25 mg po bid -Electrolyte imbalance resolved Problems reviewed: Yes Code(s): I49.9 - CARDIAC ARRHYTHMIA, UNSPECIFIED (8) Acute kidney injury Assessment/Plan: -likely 2/2 to urinary retention -Perdomo cath -Tamsulosin 0.4 mg po daily -Voiding trial on Tuesday -Seen by nephrology -No UC was done, if continues to retain may consider doing UC, pt is already on IV abx Problems reviewed: Yes Code(s): N17.9 - ACUTE KIDNEY FAILURE, UNSPECIFIED (9) Metabolic encephalopathy Problems reviewed: Yes Code(s): G93.41 - METABOLIC ENCEPHALOPATHY (10) Hypoalbuminemia Assessment/Plan: -Add prosource bid -Add ensure enlive -Add magic cup -Added multivitamin po daily Problems reviewed: Yes Code(s): E88.09 - OTH DISORDERS OF PLASMA-PROTEIN METABOLISM, NEC (11) Altered mental status Problems reviewed: Yes Code(s): R41.82 - ALTERED MENTAL STATUS, UNSPECIFIED Qualifiers: Altered mental status type: disorientation Qualified Code(s): R41.0 - Disorientation, unspecified DC PLANNING
[2019-10-30] MEDS ORDERED: DEXTROSE 5%-WATER - 50 ML IVPB ONE (09:37)
[2019-10-30] MEDS ORDERED: cefTRIAXone SODIUM 1 GM VIAL ONE (09:37)
[2019-10-30] MEDS: CEFTRIAXONE 1 GM in DEXTROSE 5%-WATER - 50 ML IVPB SCH (09:42)
[2019-10-30] MEDS: METOPROLOL TARTRATE 25 MG TABLET (FP) PO SCH ×2 (09:43→21:13)
[2019-10-30] MEDS: FERROUS SO4 325 MG TABLET (FP) PO SCH (09:53)
[2019-10-30] MEDS: TAMSULOSIN HCL 0.4 MG CAP PO SCH (09:55)
[2019-10-30] MEDS: AMINO ACIDS/PROTEIN HYDROLYS 30 ML LIQUID.PKT PO SCH ×2 (09:55→17:06)
[2019-10-30] MEDS: MULTIVITAMINS (DAILY MVI) TABLET (FP) PO SCH (09:56)
[2019-10-30] MEDS: PANTOPRAZOLE 40 MG TABLET PO SCH (09:56)
--- NOTE | 2019-10-30 13:22 | PN ---
Progress Note, Physician History of Present Illness: Pt seen and examined at bedside. She still has poor PO intake. - Current Medication List Current Medications: Active Medications Amino Acids (Prosource No Carb Liquid Pkt) 30 ml PO BID@0800,1730 [facility] Last Admin: 10/30/19 09:55 Dose: Not Given Documented by: Docusate Sodium (Colace -) [address] [facility] Last Admin: 10/29/19 21:18 Dose: Not Given Documented by: Fentanyl (Sublimaze Injection -) 25 mcg IVPUSH [id number] PRN PRN Reason: PAIN-PACU ORDER X 4 DOSES ONLY Last Admin: 10/23/19 17:30 Dose: 25 mcg Documented by: Ferrous Sulfate (Feosol -) 325 mg PO DAILY@729 [facility] Last Admin: 10/30/19 09:53 Dose: Not Given Documented by: Ceftriaxone Sodium 1 gm/ (Dextrose) 50 mls @ 100 mls/hr IVPB DAILY [facility]; Protocol Last Admin: 10/30/19 09:42 Dose: 100 mls/hr Documented by: Dextrose (D5w -) 1,000 mls @ 41.667 mls/hr IV Q24H [facility] Last Admin: 10/29/19 13:50 Dose: 41.667 mls/hr Documented by: Metoprolol Tartrate (Lopressor -) 25 mg PO BID [facility] Last Admin: 10/30/19 09:43 Dose: 25 mg Documented by: Multivitamins/Minerals/Vitamin C (Tab-A-Vit -) 1 tab PO DAILY [facility] Last Admin: 10/30/19 09:56 Dose: Not Given Documented by: Ondansetron HCl (Zofran Injection) 4 mg IVPUSH Q6H PRN PRN Reason: NAUSEA AND/OR VOMITING Pantoprazole Sodium (Protonix -) 40 mg PO DAILY [facility] Last Admin: 10/30/19 09:56 Dose: Not Given Documented by: Quetiapine Fumarate (Seroquel -) [address] [facility] Last Admin: 10/29/19 21:18 Dose: 25 mg Documented by: Tamsulosin HCl (Flomax -) 0.4 mg PO DAILY@0830 [facility] Last Admin: 10/30/19 09:55 Dose: Not Given Documented by: - Objective Vital Signs: Vital Signs Temperature 98.0 F 10/30/19 09:10 Pulse Rate 86 10/30/19 09:10 Respiratory Rate 20 10/30/19 09:10 Blood Pressure 122/52 L 10/30/19 09:10 O2 Sat by Pulse Oximetry (%) 93 L 10/30/19 09:10 Constitutional: Yes: Calm Eyes: Yes: Conjunctiva Clear HENT: Yes: Atraumatic Neck: Yes: Supple Cardiovascular: Yes: S1, S2 Respiratory: Yes: CTA Bilaterally Gastrointestinal: Yes: Soft Genitourinary: Yes: Incontinence Musculoskeletal: Yes: Muscle Weakness Edema: No Integumentary: Yes: WNL Neurological: Yes: Oriented Labs: CBC, BMP 10/29/19 06:28 10/29/19 06:28 INR, PTT INR 1.26 (0.83-1.09) H 10/19/19 17:35 Assessment/Plan Current Medications Generic Name Dose Route Start Last Admin Trade Name Freq PRN Reason Stop Dose Admin Amino Acids 30 ml 10/29/19 08:00 10/30/19 09:55 Prosource No Carb Liquid Pkt PO Not Given BID@0800,1730 [facility] Docusate Sodium 300 mg 10/28/19 22:00 10/29/19 21:18 Colace - PO Not Given HS [facility] Fentanyl 25 mcg 10/23/19 17:42 10/23/19 17:30 Sublimaze Injection - IVPUSH 25 mcg [id number] PRN Administration PAIN-PACU ORDER X 4 DOSES ONLY Ferrous Sulfate 325 mg 10/29/19 07:30 10/30/19 09:53 Feosol - PO Not Given DAILY@0730 [facility] Ceftriaxone Sodium 1 gm/ 50 mls @ 100 mls/hr 10/24/19 10:00 10/30/19 09:42 Dextrose IVPB 100 mls/hr DAILY [facility] Administration Protocol Dextrose 1,000 mls @ 41.667 mls/hr 10/27/19 13:15 10/29/19 13:50 D5w - IV 41.667 mls/hr Q24H [facility] Administration Metoprolol Tartrate 25 mg 10/25/19 12:45 10/30/19 09:43 Lopressor - PO 25 mg BID [facility] Administration Multivitamins/Minerals/Vitamin C 1 tab 10/29/19 10:00 10/30/19 09:56 Tab-A-Vit - PO Not Given DAILY [facility] Ondansetron HCl 4 mg 10/23/19 17:42 Zofran Injection IVPUSH Q6H PRN NAUSEA AND/OR VOMITING Pantoprazole Sodium 40 mg 10/29/19 10:00 10/30/19 09:56 Protonix - PO Not Given DAILY [facility] Quetiapine Fumarate 25 mg 10/29/19 22:00 10/29/19 21:18 Seroquel - PO 25 mg HS [facility] Administration Tamsulosin HCl 0.4 mg 10/29/19 08:30 10/30/19 09:55 Flomax - PO Not Given DAILY@0830 [facility] 1. CHAVA 2. CKD 3. Suspected GI Bleed 4. Acute on chronic anemia 5. Hypernatremia 6. Leukocytosis 7. Hypokalemia 8. Hypophosphatemia 9. Hypomagnesemia Plan - pt with very poor po intake - can cont fluids for now - check bmp in am - encourage po intake - gi follow up
[2019-10-30] MEDS: DEXTROSE 5%-WATER - 1,000 ML IV SCH (17:09)
--- NOTE | 2019-10-30 18:17 | PN ---
Progress Note (short form) - Note Progress Note: UGIS without evidence of a duodenal diverticulum. Surgical f/u regarding this finding. Clinically not acting like this is an abscess and there is an opening in the duodenal sweep that likely represents a diverticulum, possibly communicating with gallbladder. I have called Ms. Holder's nephew twice with no call back as of yet. If he wants this to be aggressively investigated, patient should be transferred to a hepatobiliary center. 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
[2019-10-30] MEDS: QUEtiapine FUMARATE 25 MG TABLET PO SCH (21:13)
[2019-10-30] MEDS: DOCUSATE SODIUM 100 MG CAPSULE (FP) PO SCH (22:21)
[2019-10-31] MEDS: FERROUS SO4 325 MG TABLET (FP) PO SCH (08:40)
[2019-10-31] MEDS: AMINO ACIDS/PROTEIN HYDROLYS 30 ML LIQUID.PKT PO SCH ×2 (08:40→16:53)
[2019-10-31] MEDS: TAMSULOSIN HCL 0.4 MG CAP PO SCH (08:41)
--- NOTE | 2019-10-31 09:01 | DS ---
Physical Examination Vital Signs: Vital Signs Temperature 98.0 F 10/31/19 06:00 Pulse Rate 96 H 10/31/19 06:00 Respiratory Rate 18 10/31/19 06:00 Blood Pressure 116/56 L 10/31/19 06:00 O2 Sat by Pulse Oximetry (%) 96 10/31/19 06:00 Cardiovascular: Yes: Regular Rate and Rhythm Respiratory: Yes: Regular, CTA Bilaterally Gastrointestinal: Yes: Normal Bowel Sounds, Soft. 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) Elevated troponin I level (Acute) GI bleed (Acute) Hypoalbuminemia (Acute) Hypokalemia (Acute) Metabolic encephalopathy (Acute) Preop cardiovascular exam (Acute) Rectal bleeding (Acute) Thickening of wall of gallbladder (Acute) Urinary retention (Acute) Hospital Course: - Problems (1) Urinary retention Assessment/Plan: -Perdomo in place -Start Tamsulosin -Voiding trial in 2 days -Consider changing Fluphenazine- can lead to urinary retention and cholestatic jaundice-will consult Psych Problems reviewed: Yes Code(s): R33.9 - RETENTION OF URINE, UNSPECIFIED (2) Abdominal pain Assessment/Plan: -resolved -GI on board -MRCP: 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-GI noted for UGI seriesnoted--GI note --call placed to nephew to discuss further work up -Choledochoscopy or perhaps EUS= risk vs benefit to be determined by GIs. -Continue PPI -Continue full liquid diet-Advance Per GI Problems reviewed: Yes Code(s): R10.9 - UNSPECIFIED ABDOMINAL PAIN (3) Acute cholecystitis Assessment/Plan: as above Problems reviewed: Yes Code(s): K81.0 - ACUTE CHOLECYSTITIS (4) Anemia Assessment/Plan: -likely 2/2 to acute GI bleed -VALENCIA -Injectafer x 1 -Ferrous sulfate 1 tab po daily -Colace 300 mg po HS to avoid constipation -Transfuse if Hg<7.0 to avoid fluid overload -Maintaining stable H/H Problems reviewed: Yes Code(s): D64.9 - ANEMIA, UNSPECIFIED (5) GI bleed Assessment/Plan: -GI on board -H/H stable -No melana or hematochezia Problems reviewed: Yes Code(s): K92.2 - GASTROINTESTINAL HEMORRHAGE, UNSPECIFIED (6) Hypokalemia Assessment/Plan: -resolved -monitor trend Problems reviewed: Yes Code(s): E87.6 - HYPOKALEMIA (7) Arrhythmia Assessment/Plan: -Tele monitor -Seen by Cardiology -Continue Lopressor 25 mg po bid -Electrolyte imbalance resolved Problems reviewed: Yes Code(s): I49.9 - CARDIAC ARRHYTHMIA, UNSPECIFIED (8) Acute kidney injury Assessment/Plan: -likely 2/2 to urinary retention -Perdomo cath -Tamsulosin 0.4 mg po daily -Seen by nephrology Problems reviewed: Yes Code(s): N17.9 - ACUTE KIDNEY FAILURE, UNSPECIFIED (9) Metabolic encephalopathy Problems reviewed: Yes Code(s): G93.41 - METABOLIC ENCEPHALOPATHY (10) Hypoalbuminemia Assessment/Plan: -Add prosource bid -Add ensure enlive -Add magic cup -Added multivitamin po daily Problems reviewed: Yes Code(s): E88.09 - OTH DISORDERS OF PLASMA-PROTEIN METABOLISM, NEC (11) Altered mental status Problems reviewed: Yes Code(s): R41.82 - ALTERED MENTAL STATUS, UNSPECIFIED Qualifiers: Altered mental status type: disorientation Qualified Code(s): R41.0 - Disorientation, unspecified DC PLANNING TO EPI--UNABLE TO REACH NEPHEW--IF RECURRENT SYMPTOMS WILL CONSIDER HEPATOBILIARY CENTER OR IF FAMILY WANTS TO PURSUE CAN DO OUTPATIENT Condition: Improved - Instructions Disposition: [facility] FACILITY - Home Medications Comprehensive Discharge Medication List: Ambulatory Orders Acetaminophen [Tylenol .Regular Strength -] 500 mg PO Q8H PRN 10/19/19 Lidocaine 4% Topical [Xylocaine 4% Topical -] 1 applic MM DAILY 10/19/19 Amino Acids/Protein Hydrolys [Prosource No Carb Liquid Pkt] 30 ml PO BID@0800,1730 packet 10/31/19 Docusate Sodium [Colace -] 300 mg PO HS capsule 10/31/19 Ferrous Sulfate [Feosol] 325 mg PO DAILY@0730 ud 10/31/19 Metoprolol Tartrate [Lopressor -] 25 mg PO BID tablet 10/31/19 Multivitamins [Multivit ([facility] Formul[facility])] 1 tab PO DAILY tab 10/31/19 Pantoprazole Sodium [Protonix -] 40 mg PO DAILY tablet.ec 10/31/19 Quetiapine Fumarate [Seroquel -] 25 mg PO HS tablet 10/31/19 Tamsulosin HCl [Flomax -] 0.4 mg PO DAILY@0830 cap.er.24h 10/31/19
[2019-10-31] MEDS ORDERED: cefTRIAXone SODIUM 1 GM VIAL ONE (09:51)
[2019-10-31] MEDS ORDERED: DEXTROSE 5%-WATER - 50 ML IVPB ONE (09:51)
[2019-10-31] MEDS: CEFTRIAXONE 1 GM in DEXTROSE 5%-WATER - 50 ML IVPB SCH (10:25)
--- NOTE | 2019-10-31 11:10 | PN ---
Progress Note, Physician History of Present Illness: Pt seen and examined at bedside. She is awake but has poor po intake. - Current Medication List Current Medications: Active Medications Amino Acids (Prosource No Carb Liquid Pkt) 30 ml PO BID@0800,1730 [facility] Last Admin: 10/31/19 08:40 Dose: 30 ml Documented by: Docusate Sodium (Colace -) 300 mg PO [facility] Last Admin: 10/30/19 22:21 Dose: Not Given Documented by: Fentanyl (Sublimaze Injection -) 25 mcg IVPUSH [id number] PRN PRN Reason: PAIN-PACU ORDER X 4 DOSES ONLY Last Admin: 10/23/19 17:30 Dose: 25 mcg Documented by: Ferrous Sulfate (Feosol -) 325 mg PO DAILY@729 [facility] Last Admin: 10/31/19 08:40 Dose: 325 mg Documented by: Ceftriaxone Sodium 1 gm/ (Dextrose) 50 mls @ 100 mls/hr IVPB DAILY [facility]; Protocol Last Admin: 10/31/19 10:25 Dose: 100 mls/hr Documented by: Metoprolol Tartrate (Lopressor -) 25 mg PO BID [facility] Last Admin: 10/30/19 21:13 Dose: 25 mg Documented by: Multivitamins/Minerals/Vitamin C (Tab-A-Vit -) 1 tab PO DAILY [facility] Last Admin: 10/30/19 09:56 Dose: Not Given Documented by: Ondansetron HCl (Zofran Injection) 4 mg IVPUSH Q6H PRN PRN Reason: NAUSEA AND/OR VOMITING Pantoprazole Sodium (Protonix -) 40 mg PO DAILY [facility] Last Admin: 10/30/19 09:56 Dose: Not Given Documented by: Quetiapine Fumarate (Seroquel -) 25 mg PO [facility] Last Admin: 10/30/19 21:13 Dose: 25 mg Documented by: Tamsulosin HCl (Flomax -) 0.4 mg PO DAILY@829 [facility] Last Admin: 10/31/19 08:41 Dose: 0.4 mg Documented by: - Objective Vital Signs: Vital Signs Temperature 98.5 F 10/31/19 10:00 Pulse Rate 102 H 10/31/19 10:00 Respiratory Rate 19 10/31/19 10:00 Blood Pressure 121/55 L 10/31/19 10:00 O2 Sat by Pulse Oximetry (%) 97 07/29/20 10:00 Constitutional: Yes: Calm Eyes: Yes: Conjunctiva Clear HENT: Yes: Atraumatic Neck: Yes: Supple Cardiovascular: Yes: S1, S2 Respiratory: Yes: CTA Bilaterally Gastrointestinal: Yes: Soft Genitourinary: Yes: WNL Musculoskeletal: Yes: WNL Edema: No Neurological: Yes: Oriented Psychiatric: Yes: Oriented Labs: CBC, BMP 10/29/19 06:28 10/29/19 06:28 INR, PTT INR 1.26 (0.83-1.09) H 10/19/19 17:35 Assessment/Plan Current Medications Generic Name Dose Route Start Last Admin Trade Name Freq PRN Reason Stop Dose Admin Amino Acids 30 ml 10/29/19 08:00 10/31/19 08:40 Prosource No Carb Liquid Pkt PO 30 ml BID@0800,1730 TING Administration Docusate Sodium 300 mg 10/28/19 22:00 10/30/19 22:21 Colace - PO Not Given HS [facility] Fentanyl 25 mcg 10/23/19 17:42 10/23/19 17:30 Sublimaze Injection - IVPUSH 25 mcg [id number] PRN Administration PAIN-PACU ORDER X 4 DOSES ONLY Ferrous Sulfate 325 mg 10/29/19 07:30 10/31/19 08:40 Feosol - PO 325 mg DAILY@0730 [facility] Administration Ceftriaxone Sodium 1 gm/ 50 mls @ 100 mls/hr 10/24/19 10:00 10/31/19 10:25 Dextrose IVPB 100 mls/hr DAILY [facility] Administration Protocol Metoprolol Tartrate 25 mg 10/25/19 12:45 10/30/19 21:13 Lopressor - PO 25 mg BID TING Administration Multivitamins/Minerals/Vitamin C 1 tab 10/29/19 10:00 10/30/19 09:56 Tab-A-Vit - PO Not Given DAILY [facility] Ondansetron HCl 4 mg 10/23/19 17:42 Zofran Injection IVPUSH Q6H PRN NAUSEA AND/OR VOMITING Pantoprazole Sodium 40 mg 10/29/19 10:00 10/30/19 09:56 Protonix - PO Not Given DAILY [facility] Quetiapine Fumarate 25 mg 10/29/19 22:00 10/30/19 21:13 Seroquel - PO 25 mg HS [facility]ING Administration Tamsulosin HCl 0.4 mg 10/29/19 08:30 10/31/19 08:41 Flomax - PO 0.4 mg DAILY@0830 [facility] Administration 1. CHAVA 2. CKD 3. Suspected GI Bleed 4. Acute on chronic anemia 5. Hypernatremia 6. Leukocytosis 7. Hypokalemia 8. Hypophosphatemia 9. Hypomagnesemia Plan - encourage po intake - monitor lytes - pt to follow with Dr Holden as outpt - no new labs
[2019-10-31] MEDS: PANTOPRAZOLE 40 MG TABLET PO SCH (11:55)
[2019-10-31] MEDS: METOPROLOL TARTRATE 25 MG TABLET (FP) PO SCH ×2 (11:55→21:10)
[2019-10-31] MEDS: MULTIVITAMINS (DAILY MVI) TABLET (FP) PO SCH (11:55)
--- NOTE | 2019-10-31 15:06 | PN.GI ---
GI Progress Note Subjective: no new complaints - Objective Vital Signs: Vital Signs Temperature 99.3 F 10/31/19 13:31 Pulse Rate 86 10/31/19 13:31 Respiratory Rate 19 10/31/19 13:31 Blood Pressure 114/47 L 10/31/19 13:31 O2 Sat by Pulse Oximetry (%) 99 10/31/19 13:31 Constitutional: Well Nourished, No Distress Respiratory: Yes: WNL, Regular, CTA Bilaterally Gastrointestinal Inspection: Yes: WNL ...Auscultate: Yes: Normoactive Bowel Sounds Edema: No Labs: CBC, BMP 10/29/19 06:28 10/29/19 06:28 INR, PTT INR 1.26 (0.83-1.09) H 10/19/19 17:35 Problem List - Problems (1) Acute cholecystitis Assessment/Plan: imaging reviewed - no diverticulum noted diet as tolerated h/h stable ppi 40 mg po qd Code(s): K81.0 - ACUTE CHOLECYSTITIS (2) Anemia Code(s): D64.9 - ANEMIA, UNSPECIFIED (3) GI bleed Code(s): K92.2 - GASTROINTESTINAL HEMORRHAGE, UNSPECIFIED
[2019-10-31] MEDS: DOCUSATE SODIUM 100 MG CAPSULE (FP) PO SCH (21:10)
[2019-10-31] MEDS: QUEtiapine FUMARATE 25 MG TABLET PO SCH (21:10)
--- NOTE | 2019-11-01 08:23 | DS ---
Physical Examination Vital Signs: Vital Signs Temperature 97.8 F 11/01/19 06:00 Pulse Rate 95 H 11/01/19 06:00 Respiratory Rate 18 11/01/19 06:00 Blood Pressure 128/68 11/01/19 06:00 O2 Sat by Pulse Oximetry (%) 96 11/01/19 06:00 Cardiovascular: Yes: Regular Rate and Rhythm Respiratory: Yes: Regular, CTA Bilaterally Gastrointestinal: Yes: Normal Bowel Sounds, Soft. 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) Elevated troponin I level (Acute) GI bleed (Acute) Hypoalbuminemia (Acute) Hypokalemia (Acute) Metabolic encephalopathy (Acute) Preop cardiovascular exam (Acute) Rectal bleeding (Acute) Thickening of wall of gallbladder (Acute) Urinary retention (Acute) Hospital Course: - Problems (1) Urinary retention Assessment/Plan: -Perdomo in place -Start Tamsulosin -Voiding trial in 2 days -Consider changing Fluphenazine- can lead to urinary retention and cholestatic jaundice-will consult Psych Problems reviewed: Yes Code(s): R33.9 - RETENTION OF URINE, UNSPECIFIED (2) Abdominal pain Assessment/Plan: -resolved -GI on board -MRCP: 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-GI noted for UGI seriesnoted--GI note --call placed to nephew to discuss further work up -Choledochoscopy or perhaps EUS= risk vs benefit to be determined by GIs. -Continue PPI -Continue full liquid diet-Advance Per GI Problems reviewed: Yes Code(s): R10.9 - UNSPECIFIED ABDOMINAL PAIN (3) Acute cholecystitis Assessment/Plan: as above Problems reviewed: Yes Code(s): K81.0 - ACUTE CHOLECYSTITIS (4) Anemia Assessment/Plan: -likely 2/2 to acute GI bleed -VALENCIA -Injectafer x 1 -Ferrous sulfate 1 tab po daily -Colace 300 mg po HS to avoid constipation -Transfuse if Hg<7.0 to avoid fluid overload -Maintaining stable H/H Problems reviewed: Yes Code(s): D64.9 - ANEMIA, UNSPECIFIED (5) GI bleed Assessment/Plan: -GI on board -H/H stable -No melana or hematochezia Problems reviewed: Yes Code(s): K92.2 - GASTROINTESTINAL HEMORRHAGE, UNSPECIFIED (6) Hypokalemia Assessment/Plan: -resolved -monitor trend Problems reviewed: Yes Code(s): E87.6 - HYPOKALEMIA (7) Arrhythmia Assessment/Plan: -Tele monitor -Seen by Cardiology -Continue Lopressor 25 mg po bid -Electrolyte imbalance resolved Problems reviewed: Yes Code(s): I49.9 - CARDIAC ARRHYTHMIA, UNSPECIFIED (8) Acute kidney injury Assessment/Plan: -likely 2/2 to urinary retention -Perdomo cath -Tamsulosin 0.4 mg po daily -Seen by nephrology Problems reviewed: Yes Code(s): N17.9 - ACUTE KIDNEY FAILURE, UNSPECIFIED (9) Metabolic encephalopathy Problems reviewed: Yes Code(s): G93.41 - METABOLIC ENCEPHALOPATHY (10) Hypoalbuminemia Assessment/Plan: -Add prosource bid -Add ensure enlive -Add magic cup -Added multivitamin po daily Problems reviewed: Yes Code(s): E88.09 - OTH DISORDERS OF PLASMA-PROTEIN METABOLISM, NEC (11) Altered mental status Problems reviewed: Yes Code(s): R41.82 - ALTERED MENTAL STATUS, UNSPECIFIED Qualifiers: Altered mental status type: disorientation Qualified Code(s): R41.0 - Disorientation, unspecified DC PLANNING TO EPI--UNABLE TO REACH NEPHEW--IF RECURRENT SYMPTOMS WILL CONSIDER HEPATOBILIARY CENTER OR IF FAMILY WANTS TO PURSUE CAN DO OUTPATIENT Condition: Improved - Instructions Disposition: [facility] - Home Medications Comprehensive Discharge Medication List: Ambulatory Orders Acetaminophen [Tylenol .Regular Strength -] 500 mg PO Q8H PRN 10/19/19 Lidocaine 4% Topical [Xylocaine 4% Topical -] 1 applic MM DAILY 10/19/19 Amino Acids/Protein Hydrolys [Prosource No Carb Liquid Pkt] 30 ml PO BID@0800,1730 packet 10/31/19 Docusate Sodium [Colace -] 300 mg PO HS capsule 10/31/19 Ferrous Sulfate [Feosol] 325 mg PO DAILY@0730 ud 10/31/19 Metoprolol Tartrate [Lopressor -] 25 mg PO BID tablet 10/31/19 Multivitamins [Multivit ([facility] Formulary)] 1 tab PO DAILY tab 10/31/19 Pantoprazole Sodium [Protonix -] 40 mg PO DAILY tablet.ec 10/31/19 Quetiapine Fumarate [Seroquel -] 25 mg PO HS tablet 10/31/19 Tamsulosin HCl [Flomax -] 0.4 mg PO DAILY@0830 cap.er.24h 10/31/19
[2019-11-01] MEDS ORDERED: cefTRIAXone SODIUM 1 GM VIAL ONE (09:42)
[2019-11-01] MEDS ORDERED: DEXTROSE 5%-WATER - 50 ML IVPB ONE (09:42)
[2019-11-01 11:04] VITALS: BP 126/49; PULSE 108; TEMP 98.8
[2019-11-01] MEDS: PANTOPRAZOLE 40 MG TABLET PO SCH (11:05)
[2019-11-01] MEDS: FERROUS SO4 325 MG TABLET (FP) PO SCH (11:05)
[2019-11-01] MEDS: MULTIVITAMINS (DAILY MVI) TABLET (FP) PO SCH (11:05)
[2019-11-01] MEDS: METOPROLOL TARTRATE 25 MG TABLET (FP) PO SCH (11:05)
[2019-11-01] MEDS: TAMSULOSIN HCL 0.4 MG CAP PO SCH (11:05)
[2019-11-01] MEDS: CEFTRIAXONE 1 GM in DEXTROSE 5%-WATER - 50 ML IVPB SCH (11:05)
[2019-11-01] MEDS: AMINO ACIDS/PROTEIN HYDROLYS 30 ML LIQUID.PKT PO SCH (11:06)
--- NOTE | 2019-11-01 13:08 | PN ---
Progress Note, Physician History of Present Illness: Pt seen and examined. Still with poor intake. - Objective Vital Signs: Vital Signs Temperature 98.8 F 11/01/19 10:00 Pulse Rate 108 H 11/01/19 10:00 Respiratory Rate 19 11/01/19 10:00 Blood Pressure 126/49 L 11/01/19 10:00 O2 Sat by Pulse Oximetry (%) 94 L 11/01/19 10:00 Constitutional: Yes: Calm Eyes: Yes: Conjunctiva Clear HENT: Yes: Atraumatic Neck: Yes: Supple Cardiovascular: Yes: S1, S2 Respiratory: Yes: CTA Bilaterally Gastrointestinal: Yes: Normal Bowel Sounds, Soft Genitourinary: Yes: Incontinence Musculoskeletal: Yes: Muscle Weakness Neurological: Yes: Oriented Psychiatric: Yes: Oriented Labs: CBC, BMP 10/29/19 06:28 10/29/19 06:28 INR, PTT INR 1.26 (0.83-1.09) H 10/19/19 17:35 Assessment/Plan 1. CHAVA 2. CKD 3. Suspected GI Bleed 4. Acute on chronic anemia 5. Hypernatremia 6. Leukocytosis 7. Hypokalemia 8. Hypophosphatemia 9. Hypomagnesemia Plan - no new labs - monitor renal function - monitor lytes in rehab - encourage po intake - no new labs
== END 2019-11-01 12:09 | DRG 377 ==
LOC: JER 16:47 → JERBED 22:47 → J4S 10-20 02:18
PROVIDERS: ADMIT Internal Medicine; ATTEND Family Medicine
PROC: 0DJ08ZZ Inspection of Upper Intestinal Tract, Via Natural or Artificial Opening Endoscopic (ICD-10-PCS; principal; 2019-10-23 11:30)
DX: K92.2 Gastrointestinal hemorrhage, unspecified (principal); G93.41 Metabolic encephalopathy; K83.3 Fistula of bile duct; K81.0 Acute cholecystitis; F03.91 Unspecified dementia, unspecified severity, with behavioral disturbance; E87.0 Hyperosmolality and hypernatremia; M17.9 Osteoarthritis of knee, unspecified; K26.9 Duodenal ulcer, unspecified as acute or chronic, without hemorrhage or perforation; J44.9 Chronic obstructive pulmonary disease, unspecified; I10 Essential (primary) hypertension; D72.829 Elevated white blood cell count, unspecified; K21.0 Gastro-esophageal reflux disease with esophagitis; E87.6 Hypokalemia; E83.39 Other disorders of phosphorus metabolism; E83.42 Hypomagnesemia; K57.10 Diverticulosis of small intestine without perforation or abscess without bleeding; E88.09 Other disorders of plasma-protein metabolism, not elsewhere classified; N18.9 Chronic kidney disease, unspecified; R33.9 Retention of urine, unspecified; D64.9 Anemia, unspecified; R41.82 Altered mental status, unspecified; I49.9 Cardiac arrhythmia, unspecified; R07.9 Chest pain, unspecified; K29.70 Gastritis, unspecified, without bleeding
CPT/HCPCS: 36415; 36430; 70450-TC; 71045-TC-FY; 74176-TC; 74183-TC; 74246-TC-FY; 76705-TC; 78226-TC; 80048; 80053; 81003; 82272; 82550; 82553; 82607; 82728; 83540; 83550; 83605; 83735; 84100; 84439; 84443; 84484; 85025; 85027; 85610; 85730; 86850; 86900; 86901; 86922; 87040; 93005; 93010; 94760; 97116-GP; 97161-GP; 99285-25; A9537; J1439; P9058; U0003